=== PATIENT | male | born 1950 | race Caucasian/White ===

== ENCOUNTER → 2016-12-06 | Outpatient (CLI) | payer OTHER, MEDICARE ==
--- NOTE | 2016-12-06 13:36 | PE ---
EXAMINATION TYPE: PET CT fusion whole body DATE OF EXAM: 12/06/2016 COMPARISON: PET/CT May 24, 2016. CT chest March 17, 2016. HISTORY: Lung cancer progress study . Completed chemotherapy October 2016. Completed radiation treatmen t June 17, 2017. TECHNIQUE: Following the intravenous administration of 13.76 mCi of F-18 FDG, whole body images are performed from the skull base to the midthigh. Images are reviewed on the computer in the coronal, a xial, and sagittal planes. Reconstructed rotating images are created on independent workstation and reviewed on the computer. A localization and attenuation correction CT is performed in conjunction with the PET scan. SCAN: Subsequent Scan FINDINGS: SKULL BASE AND NECK: No suspicious new hypermetabolic uptake is seen in the neck. CHEST, MEDIASTINUM, AND HILAR REGION: There is now ill-defined consolidation with mild abnormal hyper metabolic uptake at area where there was prior hypermetabolic mass in the right upper lobe. Max SUV i s 3.3. No distinct visual mass suspicious hypermetabolic uptake remains present. No new areas of abnormal hypermetabolic uptake are seen. New small right pleural effusion is noted. ABDOMEN AND PELVIS: No suspicious hypermetabolic uptake is seen in the abdomen or pelvis. No adrenal masses are evident. OSSEOUS STRUCTURES: No suspicious hypermetabolic uptake is seen in osseous structures. Cystic change right inferior acetabulum is redemonstrated and stable without suspicious hypermetabolic uptake. Scle rosis and joint space loss distal right clavicle is redemonstrated. There is stable diffuse sclerosis left T6 posterior rib without abnormal hypermetabolic uptake, healed pathologic fracture is redemons trated. There is stable sclerotic focus posterior T5 vertebral just right of midline on axial image [address]: There is redemonstration of right internal jugular Mediport catheter, catheter is now more coiled in right internal jugular vein and terminates before brachiocephalic confluence. Small degree of bilateral gynecomastia is redemonstrated. There is persistent mild cardiomegaly with tiny pericardial effusion anteriorly and inferiorly felt s table. Cholecystectomy clips are again seen. There is stable 3 mm right mid kidney calcific focus possible n onobstructing calculus versus vascular calcification on axial image 165. Normal-appearing appendix is seen from cecum. Spleen size is stable. There are scattered pelvic phleboliths. There are scattered diverticula throughout the colon. There is mild calcified atherotic change of the abdominal aorta. There is multilevel facet arthropathy in the lower lumbar spine. There is multilevel spurring in the spine. There is redemonstration of hemangioma right T10 vertebra on axial image 134. IMPRESSION: Successful treatment response with now dense irregular consolidation at area of hypermeta bolic mass right upper lobe, no obvious residual mass or abnormal hypermetabolic uptake is present . Scattered sclerotic lesion suspected metastatic disease is stable without abnormal hypermetabolic upt adriel. No new masses or abnormal hypermetabolic uptake is present.
== END | disposition home or self-care (01) ==
LOC: RADPETMAIN 10:38
PROVIDERS: ATTEND Internal Medicine Hematology & Oncology
DX: R91.8 Other nonspecific abnormal finding of lung field (principal); C34.90 Malignant neoplasm of unspecified part of unspecified bronchus or lung
CPT/HCPCS: 78816; A9552

== ENCOUNTER 2016-12-17 15:40 | Inpatient (IN) | payer OTHER, MEDICARE ==
[2016-12-17] MEDS ORDERED: SODIUM CHLORIDE 0.9% 1,000 ML IV STA (16:01)
[2016-12-17] MEDS ORDERED: DILTIAZEM 5 MG/ML 5 ML VIAL IVP STA (16:02)
--- NOTE | 2016-12-17 16:06 | ED ---
General Adult HPI - General Chief complaint: Arrhythmia/Palpitations Stated complaint: Low BP Time Seen by Provider: 12/17/16 15:51 Source: patient, family, RN notes reviewed Mode of arrival: wheelchair Limitations: no limitations - History of Present Illness Initial comments: Patient is a pleasant 66-year-old male presenting to the emergency Department with not feeling well. Patient had chemotherapy last was 6 days ago for lung cancer. Patient just feels not well generally. Patient usually does feel this way following chemotherapy. Family took blood pressure today and found it to be in the 80s. They also found heart rate to be in the 150s. Patient denies any chest pain or palpitations. No dyspnea. No history of cardiac dysrhythmia previously. - Related Data Home Medications Medication Instructions Recorded Confirmed ALPRAZolam [Xanax] 0.5 mg PO TID 11/29/15 12/17/16 Dextroamphetamine/Amphetamine 20 mg PO QAM 11/29/15 12/17/16 [Adderall Xr] Finasteride [Proscar] 5 mg PO HS 11/29/15 12/17/16 Gabapentin 600 mg PO TID 11/29/15 12/17/16 Loratadine [Claritin] 10 mg PO HS 11/29/15 12/17/16 Pravastatin Sodium [Pravachol] 40 mg PO HS 11/29/15 12/17/16 Tamsulosin HCl [Flomax] 0.4 mg PO HS 11/29/15 12/17/16 clonazePAM [KlonoPIN] 1 mg PO HS 11/29/15 12/17/16 HYDROcodone/APAP 10-325MG [[place] 1 tab PO Q6H PRN 02/17/16 12/17/16 10-325] Calcium Carbonate [Calcium] 600 mg PO DAILY 12/17/16 12/17/16 Folic Acid 1 mg PO HS 12/17/16 12/17/16 Losartan [Cozaar] 50 mg PO DAILY 12/17/16 12/17/16 Polyethylene Glycol 3350 [Miralax] 17 gm PO DAILY PRN 12/17/16 12/17/16 Prochlorperazine [Compazine] 10 mg PO Q6H PRN 12/17/16 12/17/16 Simethicone [Gas-X] 125 mg PO TID PRN 12/17/16 12/17/16 Allergies Allergy/AdvReac Type Severity Reaction Status Date / Time telaprevir [From Incivek] Allergy Rash/Hives Verified 02/17/16 15:09 tetracycline Allergy Rash/Hives Verified 02/17/16 15:09 levofloxacin [From Levaquin] AdvReac Altered Verified 12/17/16 16:18 Mental Status Review of Systems ROS Statement: Those systems with pertinent positive or pertinent negative responses have been documented in the HPI. ROS Other: All systems not noted in ROS Statement are negative. Constitutional: Denies: fever Eyes: Denies: eye pain ENT: Denies: throat pain Respiratory: Denies: cough, dyspnea Cardiovascular: Denies: chest pain, palpitations Endocrine: Reports: fatigue Gastrointestinal: Denies: abdominal pain Genitourinary: Denies: dysuria Musculoskeletal: Denies: back pain Skin: Denies: rash Neurological: Denies: headache Past Medical History Past Medical History: Cancer, Hyperlipidemia, Osteoarthritis (OA), Pneumonia, Prostate Disorder, Sleep Apnea/CPAP/BIPAP Additional Past Medical History / Comment(s): rt lung mass,vertigo/RECENT SINUS INFECTION , hepatitis c-RECEIVED TX WITH INTERFERON,INCIVEK, sleep apnea USES A CPAP MACHINE, BPH, sciatica, SHINGLES >20 YEARS AGO,WEARS [place] HEARING AIDS, LOWER BRIDGE.steroid use w/in 3 mos History of Any Multi-Drug Resistant Organisms: None Reported Past Surgical History: Cholecystectomy, Orthopedic Surgery Additional Past Surgical History / Comment(s): sinus/SLEEP APNEA SX, RT KNEE ARTHROSCOPY AND MENISCAL TEAR REPAIR,LASIK EYE SX ,COLONOSCOPY, SKIN LESION REMOVED"PRECANCEROUS" Past Anesthesia/Blood Transfusion Reactions: Motion Sickness Past Psychological History: ADD/ADHD, Depression, PTSD Smoking Status: Former smoker Past Alcohol Use History: Rare Past Drug Use History: None Reported - Past Family History Father Family Medical History: Hyperlipidemia, Myocardial Infarction ([place]) Mother Additional Family Medical History / Comment(s): PT'S MOM FROM COMPLICATIONS FROM MS WHEN PT WAS 4 YEARS OLD. General Exam Limitations: no limitations General appearance: alert, in no apparent distress Head exam: Present: atraumatic Eye exam: Present: normal appearance, PERRL ENT exam: Present: normal oropharynx Neck exam: Present: normal inspection Respiratory exam: Present: normal lung sounds bilaterally Cardiovascular Exam: Present: tachycardia, irregular rhythm Expanded Peripheral pulses: 2+: Radial (R), Radial (L), Dorsalis Pedis (R), Dorsalis Pedis (L) GI/Abdominal exam: Present: soft. Absent: tenderness Extremities exam: Present: pedal edema (Trace bilateral). Absent: calf tenderness Neurological exam: Present: alert Psychiatric exam: Present: normal affect, normal mood Skin exam: Present: normal color Course Vital Signs 12/17/16 12/17/16 12/17/16 15:43 17:17 17:56 Temperature 96.9 F L Pulse Rate 159 H 117 H 116 H Respiratory 18 18 18 Rate Blood Pressure 93/55 93/52 97/64 O2 Sat by Pulse 96 96 Oximetry 12/17/16 12/17/16 18:26 18:56 Temperature Pulse Rate 99 110 H Respiratory 18 18 Rate Blood Pressure 104/67 104/74 O2 Sat by Pulse 99 96 Oximetry EKG Findings - EKG Comments: EKG Findings:: A flutter with 2-1 AV conduction, rate 161. QRS 82. QT 294. QTC 481. Normal axis. LVH. Nonspecific ST-T. Medical Decision Making - Medical Decision Making Patient reevaluated and resting comfortably in bed. Heart rate varies between 100-140. Patient and family updated on results and plan. Case was discussed in detail with Dr. Fong, who will admit for Dr. Argueta. - Lab Data Result diagrams: 12/17/16 16:30 12/17/16 16:30 Lab Results 12/17/16 12/17/16 12/17/16 Range/Units 16:30 16:30 16:30 WBC 4.4 (3.8-10.6) k/uL RBC 3.41 L (4.30-5.90) m/uL Hgb 11.5 L (13.0-17.5) gm/dL Hct 34.5 L (39.0-53.0) % MCV 101.1 H (80.0-100.0) fL MCH 33.7 (25.0-35.0) pg MCHC 33.3 (31.0-37.0) g/dL RDW 14.8 (11.5-15.5) % Plt Count 159 (150-450) k/uL Neutrophils % 70 % Lymphocytes % 24 % Monocytes % 2 % Eosinophils % 1 % Basophils % 1 % Neutrophils # 3.1 (1.3-7.7) k/uL Lymphocytes # 1.1 (1.0-4.8) k/uL Monocytes # 0.1 (0-1.0) k/uL Eosinophils # 0.1 (0-0.7) k/uL Basophils # 0.0 (0-0.2) k/uL Macrocytosis Slight PT (9.0-12.0) sec INR (<1.1) APTT (22.0-30.0) sec Sodium 136 L (137-145) mmol/L Potassium 3.8 (3.5-5.1) mmol/L Chloride 101 (98-107) mmol/L Carbon Dioxide 25 (22-30) mmol/L Anion Gap 10 mmol/L BUN 21 H (9-20) mg/dL Creatinine 1.30 H (0.66-1.25) mg/dL Est GFR (MDRD) Af Amer >60 (>60 ml/min/1.73 sqM) Est GFR (MDRD) Non-Af 55 (>60 ml/min/1.73 sqM) Glucose 125 H (74-99) mg/dL Calcium 9.2 (8.4-10.2) mg/dL Magnesium 1.8 (1.6-2.3) mg/dL Total Bilirubin 0.4 (0.2-1.3) mg/dL AST 34 (17-59) U/L ALT 45 (21-72) U/L Alkaline Phosphatase 57 (38-126) U/L Total Creatine Kinase 115 (55-170) U/L CK-MB (CK-2) 0.9 (0.0-2.4) ng/mL CK-MB (CK-2) Rel Index 0.8 Troponin I 0.033 (0.000-0.034) ng/mL Total Protein 5.9 L (6.3-8.2) g/dL Albumin 3.4 L (3.5-5.0) g/dL TSH 2.370 (0.465-4.680) mIU/L Free T4 0.94 (0.78-2.19) ng/dL Free T3 pg/mL 3.4 (2.8-5.3) pg/ml 12/17/16 Range/Units 16:30 WBC (3.8-10.6) k/uL RBC (4.30-5.90) m/uL Hgb (13.0-17.5) gm/dL Hct (39.0-53.0) % MCV (80.0-100.0) fL MCH (25.0-35.0) pg MCHC (31.0-37.0) g/dL RDW (11.5-15.5) % Plt Count (150-450) k/uL Neutrophils % % Lymphocytes % % Monocytes % % Eosinophils % % Basophils % % Neutrophils # (1.3-7.7) k/uL Lymphocytes # (1.0-4.8) k/uL Monocytes # (0-1.0) k/uL Eosinophils # (0-0.7) k/uL Basophils # (0-0.2) k/uL Macrocytosis PT 10.1 (9.0-12.0) sec INR 1.0 (<1.1) APTT 27.6 (22.0-30.0) sec Sodium (137-145) mmol/L Potassium (3.5-5.1) mmol/L Chloride (98-107) mmol/L Carbon Dioxide (22-30) mmol/L Anion Gap mmol/L BUN (9-20) mg/dL Creatinine (0.66-1.25) mg/dL Est GFR (MDRD) Af Amer (>60 ml/min/1.73 sqM) Est GFR (MDRD) Non-Af (>60 ml/min/1.73 sqM) Glucose (74-99) mg/dL Calcium (8.4-10.2) mg/dL Magnesium (1.6-2.3) mg/dL Total Bilirubin (0.2-1.3) mg/dL AST (17-59) U/L ALT (21-72) U/L Alkaline Phosphatase (38-126) U/L Total Creatine Kinase (55-170) U/L CK-MB (CK-2) (0.0-2.4) ng/mL CK-MB (CK-2) Rel Index Troponin I (0.000-0.034) ng/mL Total Protein (6.3-8.2) g/dL Albumin (3.5-5.0) g/dL TSH (0.465-4.680) mIU/L Free T4 (0.78-2.19) ng/dL Free T3 pg/mL (2.8-5.3) pg/ml - Radiology Data Radiology results: image reviewed (Chest x-ray shows right upper lobe consolidation and atelectasis suggesting progression. No infiltrate mild left lateral lung base.) Critical Care Time Critical Care Time: Yes Total Critical Care Time: 32 Disposition Clinical Impression: Atrial fibrillation with RVR Disposition: ADMITTED IP TO THIS HOSP Referrals: Viviana Argueta DO [Primary Care Provider] - 1-2 days Decision Time: 19:10
[2016-12-17] MEDS: DILTIAZEM 125 MG in SODIUM CHLORIDE 0.9% 100 ML IV ONE (16:25)
[2016-12-17 16:49] LABS: Basophils % (A) 1 %; CH 33.7; CHCM 33.4; Eosinophils # (A) 0.1 k/uL (0-0.7); Eosinophils % (A) 1 %; HCT 34.5 % (39.0-53.0); HDW 2.62; HGB 11.5 gm/dL (13.0-17.5); Luc # (Auto) 0.12; Luc % (Auto) 3; Lymphocytes # (A) 1.1 k/uL (1.0-4.8); Lymphocytes % (A) 24 %; MCH 33.7 pg (25.0-35.0); MCHC 33.3 g/dL (31.0-37.0); MCV 101.1 fL (80.0-100.0); Macrocytosis Slight; Monocytes # (A) 0.1 k/uL (0-1.0); Monocytes % (A) 2 %; Neutrophils # (A) 3.1 k/uL (1.3-7.7); Neutrophils % (A) 70 %; RBC 3.41 m/uL (4.30-5.90); RDW 14.8 % (11.5-15.5); WBC 4.4 k/uL (3.8-10.6); WBC (Perox) 4.48
--- NOTE | 2016-12-17 16:54 | XR ---
EXAMINATION TYPE: XR chest 1V portable DATE OF EXAM: 12/17/2016 COMPARISON: 02/17/2016 HISTORY: Tachycardia TECHNIQUE: Single frontal view of the chest is obtained. FINDINGS: There is a poor inspiration with some patchy infiltrate at the lateral left lung base. The re is no heart failure. There is right central venous catheter with tip in the superior vena cava. Th ere is increased right paratracheal density consistent with right upper lobe consolidation. Trachea i s deviated slightly to the right side. Heart size is normal. There are chest leads. IMPRESSION: There is some right upper lobe consolidation and atelectasis that suggests progression o f tumor in the right upper lobe compared to old exam. There is new mild infiltrate at the lateral lef t lung base compared to old exam.
[2016-12-17 17:01] LABS: Partial Thromboplastin Time 27.6 sec (22.0-30.0); Prothrombin Time 10.1 sec (9.0-12.0)
[2016-12-17 17:08] LABS: ALT 45 U/L (21-72); AST 34 U/L (17-59); Alkaline Phosphatase 57 U/L (38-126); Anion Gap 10 mmol/L; Blood Urea Nitrogen 21 mg/dL (9-20); Calcium 9.2 mg/dL (8.4-10.2); Carbon Dioxide 25 mmol/L (22-30); Chloride 101 mmol/L (98-107); Glucose 125 mg/dL (74-99); Magnesium 1.8 mg/dL (1.6-2.3); Non-African American GFR(MDRD) 55 (>60 ml/min/1.73 sqM); Potassium 3.8 mmol/L (3.5-5.1); Sodium 136 mmol/L (137-145); Total Bilirubin 0.4 mg/dL (0.2-1.3); Total Protein 5.9 g/dL (6.3-8.2)
[2016-12-17 17:28] LABS: Creatine Kinase MB 0.9 ng/mL (0.0-2.4); Troponin I 0.033 ng/mL (0.000-0.034)
[2016-12-17] MEDS ORDERED: ASPIRIN 81 MG CHEW PO STA (19:10)
[2016-12-17] MEDS ORDERED: NITROGLYCERIN SL TABS 0.4 MG TAB SUBLINGUAL PRN (19:10)
[2016-12-17] MEDS ORDERED: HEPARIN SODIUM,PORCINE 5,000 UNIT/ML 1 ML VIAL IV ONE (19:10)
[2016-12-17] MEDS: HEPARIN SODIUM,PORCINE/D5W PMX 25,000 UNIT in DEXTROSE/WATER 1 500ML.BAG IV SCH (19:32)
[2016-12-17] MEDS ORDERED: HYDROcodone/APAP 10-325MG 1 EACH TAB PO ONE (20:03)
[2016-12-17] MEDS ORDERED: HYDROcodone/APAP 10-325MG 1 EACH TAB PO PRN (21:04)
[2016-12-17 21:18] VITALS: BMI 29.3
[2016-12-17] MEDS ORDERED: clonazePAM 1 MG TAB PO STA (22:24)
[2016-12-17] MEDS ORDERED: FINASTERIDE 5 MG TAB PO ONE (22:25)
[2016-12-17] MEDS ORDERED: LORATADINE 10 MG TAB PO STA (22:26)
[2016-12-17] MEDS ORDERED: TAMSULOSIN 0.4 MG CAP.ER.24H PO STA (22:27)
[2016-12-17] MEDS: GABAPENTIN 300 MG CAP PO SCH (22:28)
[2016-12-17] MEDS: ALPRAZolam 0.5 MG TAB PO SCH (22:28)
[2016-12-17 23:12] LABS: Creatine Kinase MB 0.8 ng/mL (0.0-2.4)
[2016-12-17 23:22] LABS: Troponin I 0.035 ng/mL (0.000-0.034)
[2016-12-17] MEDS: SIMETHICONE 80 MG CHEWABLE PO PRN (23:24)
[2016-12-17] MEDS: PROCHLORPERAZINE 10 MG TAB PO PRN (23:24)
[2016-12-18] MEDS ORDERED: POLYETHYLENE GLYCOL 3350 17 GM POWD.PACK PO PRN (00:55)
[2016-12-18] MEDS ORDERED: TEMAZEPAM 15 MG CAP PO PRN (00:56)
[2016-12-18] MEDS: HEPARIN SODIUM,PORCINE 5,000 UNIT/ML 1 ML VIAL IV PRN ×2 (01:50→09:37)
[2016-12-18 06:24] LABS: Mean Platelet Volume 7.7
[2016-12-18 06:28] LABS: Creatine Kinase MB 0.6 ng/mL (0.0-2.4); Troponin I 0.018 ng/mL (0.000-0.034)
[2016-12-18 06:37] LABS: Cholesterol 132 mg/dL (<200); HDL Cholesterol 43 mg/dL (40-60); Triglycerides 69 mg/dL (<150)
[2016-12-18] MEDS ORDERED: POTASSIUM CHLORIDE ER 20 MEQ TAB.ER PO STA (08:20)
--- NOTE | 2016-12-18 08:20 | P.CRDCN ---
History of Present Illness Consult date: 12/18/16 Requesting physician: Tera Fong Consult reason: atrial flutter Chief complaint: Light headedness History of present illness: This is a pleasant 66-year-old gentleman with history of hypertension , diagnosis of lung cancer approximately one year ago for which she receives chemotherapy, hyperlipidemia, prior history of smoking, who states that he's been feeling generally well. Yesterday, patient states he went out on his boat fishing with his grandson, became extremely lightheaded. He states that he tried to have something to eat which usually calms the lightheadedness, however he persisted to be quite lightheaded and had some mild associated nausea. He came in off the boat, states that his daughter checked his heart rate which was noted to be in the 150-160 range and the patient came to the emergency room for further evaluation. Presentation here patient was found to be in atrial flutter with a heart rate of 160, blood pressure 93/50, 96% on room air. Chest x-ray revealed right upper lobe consolidation and atelectasis suggesting progression of the tumor in the right upper lobe compared with prior exam. There may be in new mild infiltrate in the lateral left lung base compared to prior. Hemoglobin 11.5, WBC 4.4, platelet count 124 potassium 3.8, BUN 21, creatinine 1.3. A mesial level I.8. Troponin 0.033, 0.035, 0.018. TSH 2.3, free T4 0.9. At the time of my examination this morning patient is currently on IV heparin and IV Cardizem. Continues to be in atrial flutter with a heart rate in the 90s, with activity heart rate goes up into the 07/19/1929 range. Past Medical History Past Medical History: Cancer, Hyperlipidemia, Osteoarthritis (OA), Pneumonia, Prostate Disorder, Sleep Apnea/CPAP/BIPAP Additional Past Medical History / Comment(s): rt lung mass,vertigo/RECENT SINUS INFECTION , hepatitis c-RECEIVED TX WITH INTERFERON,INCIVEK, sleep apnea USES A CPAP MACHINE, BPH, sciatica, SHINGLES >20 YEARS AGO,WEARS [place] HEARING AIDS, LOWER BRIDGE.steroid use w/in 3 mos, chemo History of Any Multi-Drug Resistant Organisms: None Reported Past Surgical History: Cholecystectomy, Orthopedic Surgery Additional Past Surgical History / Comment(s): sinus/SLEEP APNEA SX, RT KNEE ARTHROSCOPY AND MENISCAL TEAR REPAIR,LASIK EYE SX ,COLONOSCOPY, SKIN LESION REMOVED"PRECANCEROUS" Past Anesthesia/Blood Transfusion Reactions: No Reported Reaction, Motion Sickness Past Psychological History: ADD/ADHD, Depression, PTSD Additional Psychological History / Comment(s): PT LIVES AT HOME WITH HIS SARA, IS INDEPENDANT. Smoking Status: Former smoker - Past Family History Father Family Medical History: Hyperlipidemia, Myocardial Infarction ([place]) Mother Additional Family Medical History / Comment(s): PT'S MOM FROM COMPLICATIONS FROM MS WHEN PT WAS 4 YEARS OLD. Medications and Allergies Home Medications Medication Instructions Recorded Confirmed Type ALPRAZolam [Xanax] 0.5 mg PO TID 11/29/15 12/17/16 History Dextroamphetamine/Amphetamine 20 mg PO QAM 11/29/15 12/17/16 History [Adderall Xr] Finasteride [Proscar] 5 mg PO HS 11/29/15 12/17/16 History Gabapentin 600 mg PO TID 11/29/15 12/17/16 History Loratadine [Claritin] 10 mg PO HS 11/29/15 12/17/16 History Pravastatin Sodium [Pravachol] 40 mg PO HS 11/29/15 12/17/16 History Tamsulosin HCl [Flomax] 0.4 mg PO HS 11/29/15 12/17/16 History clonazePAM [KlonoPIN] 1 mg PO HS 11/29/15 12/17/16 History HYDROcodone/APAP 10-325MG [[place] 1 tab PO Q6H PRN 02/17/16 12/17/16 History 10-325] Calcium Carbonate [Calcium] 600 mg PO DAILY 12/17/16 12/17/16 History Folic Acid 1 mg PO HS 12/17/16 12/17/16 History Losartan [Cozaar] 50 mg PO DAILY 12/17/16 12/17/16 History Polyethylene Glycol 3350 [Miralax] 17 gm PO DAILY PRN 12/17/16 12/17/16 History Prochlorperazine [Compazine] 10 mg PO Q6H PRN 12/17/16 12/17/16 History Simethicone [Gas-X] 125 mg PO TID PRN 12/17/16 12/17/16 History Allergies Allergy/AdvReac Type Severity Reaction Status Date / Time telaprevir [From Incivek] Allergy Rash/Hives Verified 02/17/16 15:09 tetracycline Allergy Rash/Hives Verified 02/17/16 15:09 levofloxacin [From Levaquin] AdvReac Altered Verified 12/17/16 16:18 Mental Status Physical Exam Vitals: Vital Signs Temp Pulse Pulse Resp BP BP Pulse Ox 12/18/16 04:00 97.1 F L 77 16 122/69 95 12/17/16 23:44 115 H 12/17/16 23:20 115 H 16 111/56 96 12/17/16 22:45 164 H 16 12/17/16 20:26 98.5 F 100 18 119/78 97 12/17/16 20:13 97.5 F L 164 H 16 109/70 97 12/17/16 19:56 104 H 18 107/73 98 12/17/16 18:56 110 H 18 104/74 96 12/17/16 18:26 99 18 104/67 99 12/17/16 17:56 116 H 18 97/64 96 12/17/16 17:17 117 H 18 93/52 12/17/16 15:43 96.9 F L 159 H 18 93/55 96 Intake and Output 12/17/16 12/18/16 12/18/16 22:59 06:59 14:59 Intake Total 1226 Output Total 450 Balance 1226 -450 Intake: IV 1100 Sodium Chloride 0.9% 1, 1100 000 ml @ 100 mls/hr IV . Q10H [facility] Rx#:[id number] Intake, IV Titration 126 Amount Heparin Sodium,Porcine/ 126 D5w Pmx 25,000 unit In Dextrose/Water 1 500ml. bag @ 9.586 UNITS/KG/HR 20 mls/hr IV .Q24H [facility] Rx #:[id number] Output: Urine 450 Other: # Voids 1 1 Weight 103.6 kg 103.6 kg PHYSICAL EXAMINATION: HEENT: Head is atraumatic, normocephalic. Pupils equal, round. Neck is supple. There is no elevated jugular venous pressure. HEART EXAMINATION: Heart S1, S2 irregularly irregular . No murmur or gallop heard. CHEST EXAMINATION: Lungs are clear to auscultation and precussion. No chest wall tenderness is noted on palpation or with deep breathing. ABDOMEN: Soft, nontender. Bowel sounds are heard. No organomegaly noted. EXTREMITIES: 2+ peripheral pulses with no evidence of peripheral edema and no calf tenderness noted. NEUROLOGIC patient is awake, alert and oriented -3. . Results 12/18/16 05:33 12/17/16 16:30 Cardiac Enzymes 12/17/16 12/17/16 12/17/16 Range/Units 16:30 16:30 22:33 AST 34 (17-59) U/L CK-MB (CK-2) 0.9 0.8 (0.0-2.4) ng/mL Troponin I 0.033 0.035 H* (0.000-0.034) ng/mL 12/18/16 Range/Units 05:33 AST (17-59) U/L CK-MB (CK-2) 0.6 (0.0-2.4) ng/mL Troponin I 0.018 (0.000-0.034) ng/mL Coagulation 12/17/16 12/18/16 Range/Units 16:30 01:20 PT 10.1 (9.0-12.0) sec APTT 27.6 31.1 H (22.0-30.0) sec Lipids 12/18/16 Range/Units 05:33 Triglycerides 69 (<150) mg/dL Cholesterol 132 (<200) mg/dL HDL Cholesterol 43 (40-60) mg/dL CBC 12/17/16 12/18/16 Range/Units 16:30 05:33 WBC 4.4 (3.8-10.6) k/uL RBC 3.41 L (4.30-5.90) m/uL Hgb 11.5 L (13.0-17.5) gm/dL Hct 34.5 L (39.0-53.0) % Plt Count 159 124 L (150-450) k/uL Comprehensive Metabolic Panel 12/17/16 Range/Units 16:30 Sodium 136 L (137-145) mmol/L Potassium 3.8 (3.5-5.1) mmol/L Chloride 101 (98-107) mmol/L Carbon Dioxide 25 (22-30) mmol/L BUN 21 H (9-20) mg/dL Creatinine 1.30 H (0.66-1.25) mg/dL Glucose 125 H (74-99) mg/dL Calcium 9.2 (8.4-10.2) mg/dL AST 34 (17-59) U/L ALT 45 (21-72) U/L Alkaline Phosphatase 57 (38-126) U/L Total Protein 5.9 L (6.3-8.2) g/dL Albumin 3.4 L (3.5-5.0) g/dL Current Medications Generic Name Dose Route Start Last Admin Trade Name Freq PRN Reason Stop Dose Admin Hydrocodone Bitart/Acetaminophen 1 each 12/17/16 21:04 [place] 10 PO Q6H PRN Pain Alprazolam 0.5 mg 12/17/16 22:00 12/17/16 22:28 Xanax PO 0.5 mg TID [facility] Administration Aspirin 325 mg 12/18/16 09:00 Aspirin PO DAILY [facility] Calcium Carbonate/Glycine 500 mg 12/18/16 09:00 Tums PO DAILY [facility] Clonazepam 1 mg 12/18/16 21:00 Klonopin PO HS [facility] Finasteride 5 mg 12/18/16 21:00 Proscar PO HS [facility] Folic Acid 1 mg 12/18/16 21:00 Folic Acid PO HS [facility] Gabapentin 600 mg 12/17/16 22:00 12/17/16 22:28 Neurontin PO 600 mg TID [facility] Administration Heparin Sodium (Porcine) 0 unit 12/17/16 19:10 12/18/16 01:50 Heparin IV 4,000 unit Q6HR PRN Administration Low PTT Protocol Diltiazem HCl 125 mg/ Sodium 125 mls @ 5 mls/hr 12/17/16 16:02 12/17/16 16:25 Chloride IV 12/18/16 16:01 5 mg/hr .Q24H ONE 5 mls/hr 5 MG/HR Administration Heparin Sodium/Dextrose 25,000 500 mls @ 20 mls/hr 12/17/16 19:15 12/18/16 01 :50 unit/ IV Solution IV 12.5 units/kg/hr .Q24H [facility] 26.08 mls/hr Protocol Titration 9.586 UNITS/KG/HR Loratadine 10 mg 12/18/16 21:00 Claritin PO HS [facility] Losartan Potassium 50 mg 12/18/16 09:00 Cozaar PO DAILY [facility] Nitroglycerin 0.4 mg 12/17/16 19:10 Nitrostat SUBLINGUAL Q5M PRN Chest Pain Polyethylene Glycol 17 gm 12/18/16 00:55 Miralax PO DAILY PRN Constipation Pravastatin Sodium 40 mg 12/18/16 21:00 Pravachol PO HS [facility] Prochlorperazine Maleate 10 mg 12/17/16 21:04 12/17/16 23:24 Compazine PO 10 mg Q6H PRN Administration Nausea Simethicone 120 mg 12/17/16 21:36 12/17/16 23:24 Mylicon Chew PO 120 mg TID PRN Administration Bloating/Gas Tamsulosin HCl 0.4 mg 12/18/16 21:00 Flomax PO HS [facility] Temazepam 15 mg 12/18/16 00:56 Restoril PO HS PRN Insomnia Intake and Output 12/17/16 12/18/16 12/18/16 22:59 06:59 14:59 Intake Total 1226 Output Total 450 Balance 1226 -450 Intake: IV 1100 Sodium Chloride 0.9% 1, 1100 000 ml @ 100 mls/hr IV . Q10H [facility] Rx#:[id number] Intake, IV Titration 126 Amount Heparin Sodium,Porcine/ 126 D5w Pmx 25,000 unit In Dextrose/Water 1 500ml. bag @ 9.586 UNITS/KG/HR 20 mls/hr IV .Q24H [facility] Rx #:[id number] Output: Urine 450 Other: # Voids 1 1 Weight 103.6 kg 103.6 kg 12/18/16 05:33 12/17/16 16:30 EKG Interpretations (text) EKG shows atrial flutter with a rapid ventricular response Assessment and Plan Plan: Assessment and plan #1 atrial flutter with rapid ventricular response, appears to be of new onset. #2 hypertension #3 hyperlipidemia #4 history of hepatitis C with interferon therapy # 5 sleep apnea #6 lung CA, status post chemotherapy #7 mildly renal insufficiency, creatinine 1.3 #8 hypokalemia #9 abnormal troponins, likely secondary to oxygen supply and demand mismatch, patient did have a Lexiscan stress test performed one year ago which was negative for any reversible ischemia. Plan Echocardiogram with Doppler study has been performed, we will review. T4 and TSH are normal. Patient has been educated regarding the importance of anticoagulation for stroke prevention. We will check to see if the patient has coverage for one of the newer agents. We will replace the patient's potassium. Further recommendations will be based on these findings and the patient's clinical course. DNP note has been reviewed, I agree with a documented findings and plan of care. Patient was seen and examined.
[2016-12-18] MEDS ORDERED: LOSARTAN 50 MG TAB PO SCH (09:00)
[2016-12-18] MEDS ORDERED: ASPIRIN 325 MG TAB PO SCH (09:00)
[2016-12-18] MEDS ORDERED: NON-FORMULARY DRUG (Dextroamphetamine/Amphetamine [Adderall Xr] 20 MG) PO SCH (09:00)
[2016-12-18] MEDS: DILTIAZEM 125 MG in SODIUM CHLORIDE 0.9% 100 ML IV ONE (09:20)
[2016-12-18] MEDS: GABAPENTIN 300 MG CAP PO SCH ×3 (09:27→21:22)
[2016-12-18] MEDS: ALPRAZolam 0.5 MG TAB PO SCH ×3 (09:34→21:22)
--- NOTE | 2016-12-18 09:56 | HP ---
DATE OF ADMISSION: DATE OF SERVICE: 12/17/2016 CHIEF COMPLAINT: Atrial fibrillation and high heart rate. HISTORY OF PRESENT ILLNESS: This 66-year-old gentleman with a past medical history of lung cancer right upper lobe on chemotherapy being followed by Dr. Argueta in the outpatient setting, not feeling well. Today, the patient was taking his blood pressure and the heart rate was found to be 150s. The patient came to [facility] and atrial fibrillation with rapid ventricular rate was noted. The patient was started on IV heparin and is admitted for further evaluation and treatment. The patient also has past history of hyperlipidemia, DJD, history of pneumonia, history of sleep apnea, cholecystectomy, ADD/ADHD, depression, PTSD also. There is no history of fevers, rigors. No history of headache, loss of consciousness or seizures. PAST MEDICAL HISTORY: History of hyperlipidemia, DJD, history of pneumonia, history of prostate disorder, sleep apnea, right lung mass, ADD, ADHD, history of depression, PTSD. Medications prior to admission include home medications are: 1. Compazine 10 mg q.6 p.r.n. 2. Klonopin 1 mg p.o. q.h.s. 3. Flomax 0.4 q.h.s. 4. Gas-X 125 mg p.o. t.i.d. p.r.n. 5. Pravachol 40 mg q.h.s. 6. MiraLAX 17 grams daily p.r.n. 7. Cozaar 50 mg p.o. daily. 8. Claritin 10 mg q.h.s. 9. Republic 10 mg q.6 p.r.n. 10. Gabapentin 600 mg p.o. t.i.d. 11. Folic acid 1 mg p.o. q.h.s. 12. Proscar 5 mg p.o. q.h.s. 13. Adderall XR 20 mg p.o. q.a.m. 14. Calcium 600 mg p.o. daily. 15. Xanax 0.5 mg p.o. t.i.d. ALLERGIES: TELAPREVIR, TETRACYCLINE, LEVAQUIN. FAMILY HISTORY: History of hyperlipidemia, history of myocardial infarction, history of multiple sclerosis. SOCIAL HISTORY: History of THC, previous history of smoking. REVIEW OF SYSTEMS: ENT: No diminishing hearing or diminished vision. CARDIOVASCULAR SYSTEM: No angina. RESPIRATORY SYSTEM: As mentioned earlier. GI: As mentioned earlier. : No dysuria. NERVOUS SYSTEM: As mentioned earlier. ALLERGY/IMMUNOLOGY: No history of asthma. MUSCULOSKELETAL: As mentioned earlier. HEMATOLOGY/ONCOLOGY: No history of anemia. ENDOCRINE: No history of diabetes mellitus or hypothyroidism. CONSTITUTIONAL: As mentioned earlier. DERMATOLOGY: Negative. RHEUMATOLOGY: Negative. PSYCHIATRY: As mentioned earlier. PHYSICAL EXAMINATION: The patient is alert and oriented x3. Pulse is 115 irregular. Blood pressure 111/56, respirations 16, temperature 98.4, pulse ox 96% on 2 L. HEENT: Conjunctivae normal. Oral mucosa moist. NECK: No jugular venous distention. No carotid bruit. No lymph node enlargement. CARDIOVASCULAR: S1 and S2, tachycardiac, irregular. RESPIRATORY: Breath sounds diminished at the bases. Bilateral scattered rhonchi and crackles. ABDOMEN: Soft, nontender. No mass palpable. LEGS: No edema, no swelling. NERVOUS SYSTEM: Higher function as mentioned earlier. Moves all 4 limbs. No focal motor or sensory deficit. LYMPHATICS: No lymphadenopathy of neck, axillae or groin. SKIN; No ulcers, rashes or bleeding. Labs are at this time shows WBC 4.4, hemoglobin 11.5. Sodium 136. Creatinine is 1.30. The recent PET scan reviewed. Troponin 0.035. ASSESSMENT: 1. Atrial fibrillation with fast ventricular rate. 2. Troponin 0.035 indeterminate. 3. Increased creatinine with possible mild acute renal failure, possibly prerenal, acute tubular necrosis. 4. Hyponatremia. 5. Anemia, macrocytic. 6. History of right lung cancer, status post chemotherapy. 7. History of hyperlipidemia. 8. History of degenerative joint disease. 9. History of pneumonia. 10. History of prostate disorder. 11. History of sleep apnea. 12. History of hepatitis, treated with interferon. 13. History of sleep apnea on CPAP. 14. History of shingles. 15. Hard of hearing. 16. History of attention deficit disorder, attention deficit hyperactivity disorder. 17. History of depression, posttraumatic stress disorder. 18. Remote history of nicotine dependence. 19. History of medical marijuana. 20. FULL CODE. RECOMMENDATIONS AND DISCUSSION: This 66-year-old gentleman who presented with multiple complex medical problems. Will monitor the patient closely. Continue the current medications. Continue the Cardizem drip. Follow closely with Cardiology, otherwise, 2-D echo will be ordered. The patient is also started on IV heparin as well. Continue to monitor. Prognosis guarded. Further recommendations to follow. Hematology/Oncology also will be consulted. Home medications will be continued. Discussed with the patient, understands and agrees.
--- NOTE | 2016-12-18 10:01 | ECHOF ---
Referral Reason:afib MEASUREMENTS -------- HEIGHT: 188.0 cm WEIGHT: 103.4 kg BP: 122/69 RVIDd: 3.2 cm (< 3.3) IVSd: 1.2 cm (0.6 - 1.1) LVIDd: 5.2 cm (3.9 - 5.3) LVPWd: 1.2 cm (0.6 - 1.1) IVSs: 1.8 cm LVIDs: 3.2 cm LVPWs: 1.7 cm LA Diam: 4.0 cm (2.7 - 3.8) LAESV Index (A-L): 30.17 ml/m Ao Diam: 3.9 cm (2.0 - 3.7) AV Cusp: 1.8 cm (1.5 - 2.6) MV EXCURSION: 16.312 mm (> 18.000) MV EF SLOPE: 101 mm/s (70 - 150) EPSS: 1.0 cm RAP: 5.00 mmHg RVSP: 22.41 mmHg FINDINGS -------- The rhythm appears to be atrial flutter. This was a technically good study. The left ventricular size is normal. There is borderline concentric left ventricular hypertrophy. Overall left ventricular systolic function is mildly impaired with, an EF between 45 - 50 %. The right ventricle is normal in size and function. LA is midly dilated 29-33ml/m2. The right atrium is normal in size. The aortic valve is trileaflet and appears structurally normal. There is trace to mild mitral regurgitation. Trace tricuspid regurgitation present. Right ventricular systolic pressure is normal at < 35 mmHg. Trace/mild (physiologic) pulmonic regurgitation. The aortic root is dilated measuring 3.9cm. Normal inferior vena cava with normal inspiratory collapse consistent with estimated right atrial pressure of 5 mmHg. The pericardium is normal. CONCLUSIONS -------- 1. The rhythm appears to be atrial flutter. 2. Trace tricuspid regurgitation present. 3. Right ventricular systolic pressure is normal at < 35 mmHg. 4. Trace/mild (physiologic) pulmonic regurgitation. 5. The aortic root is dilated measuring 3.9cm. 6. Normal inferior vena cava with normal inspiratory collapse consistent with estimated right atrial pressure of 5 mmHg. 7. The pericardium is normal. 8. This was a technically good study. 9. The left ventricular size is normal. 10. There is borderline concentric left ventricular hypertrophy. 11. The right ventricle is normal in size and function. 12. LA is midly dilated 29-33ml/m2. 13. The right atrium is normal in size. 14. The aortic valve is trileaflet and appears structurally normal. 15. There is trace to mild mitral regurgitation. [employer] SUPERVISOR: Manasa Carter RDCS
--- NOTE | 2016-12-18 10:42 | P.PN ---
Progress Note - Text This is an addendum to the dictated cardiology consultation. 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 He felt dizzy but was not aware of any palpitations. He has no prior cardiac history and has underwent a stress test about a year ago that showed no evidence of inducible ischemia and his systolic function at that time was normal. On presentation he was noted to be in atrial flutter with 2 to one conduction. Patient denies any chest pain, change in his breathing, PND or orthopnea. He has occasional peripheral edema. He was told that his recent PET scan was stable. He has a history of hypertension and hyperlipidemia, he stopped smoking many years ago and he is non-diabetic. The patient was started on IV Cardizem and IV heparin to control his heart rate and anticoagulate him. His echocardiogram showed a mildly impaired systolic function. I would add to his regimen a beta junior and initiate oral anticoagulation. We will await the oncology service input regarding his malignancy status to make further recommendations in regard to attempting to restore sinus mechanism. Thank you for this consult we will follow.
[2016-12-18] MEDS: METOPROLOL TARTRATE 25 MG TAB PO SCH ×2 (11:36→21:22)
[2016-12-18] MEDS: LOSARTAN 25 MG TAB PO SCH (11:36)
[2016-12-18] MEDS: CALCIUM CARBONATE 500 MG CHEWABLE PO SCH (11:36)
[2016-12-18] MEDS: DILTIAZEM 125 MG in SODIUM CHLORIDE 0.9% 100 ML IV SCH ×2 (17:32→22:56)
[2016-12-18] MEDS: HEPARIN SODIUM,PORCINE/D5W PMX 25,000 UNIT in DEXTROSE/WATER 1 500ML.BAG IV SCH (17:33)
[2016-12-18] MEDS ORDERED: RX INFO: IV CONTRAST WAS GIVEN 1 EACH MISC MISCELLANE PRN (19:51)
--- NOTE | 2016-12-18 19:59 | P.CONS ---
History of Present Illness - Reason for Consult Consult date: 12/18/16 New onset atrial fibrillation. Lung cancer on chemo - History of Present Illness The patient is a 66-year-old gentleman, well-known to our service. He was diagnosed with a right-sided adenocarcinoma of the lung about a year ago. Unfortunately the patient had metastatic disease at diagnosis with bone involvement. He was treated with carboplatin and Alimta, for 6 cycles and then received palliative radiation. He has since been on maintenance Alimta, with good tolerance. Last chemotherapy was about 6-7 days ago. The patient did call the office, as he was feeling quite weak and dizzy. He reported that his blood pressure had dropped into the 80s and his heart rate appear to be quite high. He was asked by the office to go to the emergency room , where he was found to be in atrial fibrillation with high ventricular rate, up into the 160-170 range. He was admitted for further management. The patient has been seen by cardiology, and his rate is currently controlled with medication. Blood pressure has stabilized and he feels much better. He has been started on IV heparin. Consult was placed further evaluation and recommendations. He denies any prior history of cardiac arrhythmia or other cardiac abnormality Review of Systems Constitutional: Reports weakness Eyes: denies blurred vision, denies pain Ears: deny: decreased hearing, ear discharge, earache, tinnitus Ears, nose, mouth and throat: Denies headache, Denies sore throat Cardiovascular: Reports dyspnea on exertion, Reports irregular heart beat, Reports lightheadedness, Reports palpitations, Reports rapid heart beat Respiratory: Reports as per HPI, Reports dyspnea Gastrointestinal: Denies abdominal pain, Denies diarrhea, Denies nausea, Denies vomiting Genitourinary: Reports as per HPI Musculoskeletal: Reports as per HPI (Bilateral lower extremity edema, right greater than left) Integumentary: Denies pruritus, Denies rash Neurological: Reports as per HPI, Reports weakness Psychiatric: Denies anxiety, Denies depression Endocrine: Denies fatigue, Denies weight change Hematologic/Lymphatic: Reports as per HPI Past Medical History Past Medical History: Cancer, Hyperlipidemia, Osteoarthritis (OA), Pneumonia, Prostate Disorder, Sleep Apnea/CPAP/BIPAP Additional Past Medical History / Comment(s): rt lung mass,vertigo/RECENT SINUS INFECTION , hepatitis c-RECEIVED TX WITH INTERFERON,INCIVEK, sleep apnea USES A CPAP MACHINE, BPH, sciatica, SHINGLES >20 YEARS AGO,WEARS [place] HEARING AIDS, L[place].steroid use w/in 3 mos, chemo History of Any Multi-Drug Resistant Organisms: None Reported Past Surgical History: Cholecystectomy, Orthopedic Surgery Additional Past Surgical History / Comment(s): sinus/SLEEP APNEA SX, RT KNEE ARTHROSCOPY AND MENISCAL TEAR REPAIR,LASIK EYE SX ,COLONOSCOPY, SKIN LESION REMOVED"PRECANCEROUS" Past Anesthesia/Blood Transfusion Reactions: No Reported Reaction, Motion Sickness Past Psychological History: ADD/ADHD, Depression, PTSD Additional Psychological History / Comment(s): PT LIVES AT HOME WITH HIS SARA, IS INDEPENDANT. Smoking Status: Former smoker - Past Family History Father Family Medical History: Hyperlipidemia, Myocardial Infarction ([place]) Mother Additional Family Medical History / Comment(s): PT'S MOM FROM COMPLICATIONS FROM MS WHEN PT WAS 4 YEARS OLD. Medications and Allergies Home Medications Medication Instructions Recorded Confirmed Type ALPRAZolam [Xanax] 0.5 mg PO TID 11/29/15 12/17/16 History Dextroamphetamine/Amphetamine 20 mg PO QAM 11/29/15 12/17/16 History [Adderall Xr] Finasteride [Proscar] 5 mg PO HS 11/29/15 12/17/16 History Gabapentin 600 mg PO TID 11/29/15 12/17/16 History Loratadine [Claritin] 10 mg PO HS 11/29/15 12/17/16 History Pravastatin Sodium [Pravachol] 40 mg PO HS 11/29/15 12/17/16 History Tamsulosin HCl [Flomax] 0.4 mg PO HS 11/29/15 12/17/16 History clonazePAM [KlonoPIN] 1 mg PO HS 11/29/15 12/17/16 History HYDROcodone/APAP 10-325MG [[place] 1 tab PO Q6H PRN 02/17/16 12/17/16 History 10-325] Calcium Carbonate [Calcium] 600 mg PO DAILY 12/17/16 12/17/16 History Folic Acid 1 mg PO HS 12/17/16 12/17/16 History Losartan [Cozaar] 50 mg PO DAILY 12/17/16 12/17/16 History Polyethylene Glycol 3350 [Miralax] 17 gm PO DAILY PRN 12/17/16 12/17/16 History Prochlorperazine [Compazine] 10 mg PO Q6H PRN 12/17/16 12/17/16 History Simethicone [Gas-X] 125 mg PO TID PRN 12/17/16 12/17/16 History Allergies Allergy/AdvReac Type Severity Reaction Status Date / Time telaprevir [From Incivek] Allergy Rash/Hives Verified 02/17/16 15:09 tetracycline Allergy Rash/Hives Verified 02/17/16 15:09 levofloxacin [From Levaquin] AdvReac Altered Verified 12/17/16 16:18 Mental Status Physical Exam Vitals: Vital Signs Temp Pulse Pulse Pulse Resp BP BP 12/18/16 16:00 98.5 F 80 18 112/68 12/18/16 12:00 97.1 F L 86 18 115/71 12/18/16 09:36 113 H 112/56 12/18/16 09:25 97.3 F L 130 H 114/69 12/18/16 09:18 115 H 12/18/16 08:00 170 H 171 H 18 111/91 12/18/16 04:00 97.1 F L 77 16 12/17/16 23:44 115 H 12/17/16 23:20 115 H 16 12/17/16 22:45 164 H 16 12/17/16 20:26 98.5 F 100 18 119/78 12/17/16 20:13 97.5 F L 164 H 16 12/17/16 19:56 104 H 18 107/73 BP Pulse Ox 12/18/16 16:00 95 12/18/16 12:00 94 L 12/18/16 09:36 12/18/16 09:25 12/18/16 09:18 109/60 12/18/16 08:00 95 12/18/16 04:00 122/69 95 12/17/16 23:44 12/17/16 23:20 111/56 96 12/17/16 22:45 12/17/16 20:26 97 12/17/16 20:13 109/70 97 12/17/16 19:56 98 Intake and Output 12/18/16 12/18/16 12/18/16 06:59 14:59 22:59 Intake Total 1226 768.442 970.141 Output Total 450 Balance 1226 318.442 970.141 Intake: IV 1100 800 Sodium Chloride 0.9% 1, 1100 800 000 ml @ 100 mls/hr IV . Q10H ST[facility] Rx#:[id number] Intake, IV Titration 126 288.442 170.141 Amount Diltiazem 125 mg In 84.583 Sodium Chloride 0.9% 100 ml @ 10 MG/HR 10 mls/hr IV .[id number] Rx#: [id number] Heparin Sodium,Porcine/ 126 203.859 170.141 D5w Pmx 25,000 unit In Dextrose/Water 1 500ml. bag @ 9.586 UNITS/KG/HR 20 mls/hr IV .Q24H [facility] Rx #:[id number] Oral 480 Output: Urine 450 Other: Voiding Method Toilet Toilet Urinal Urinal # Voids 1 Weight 103.6 kg - Constitutional General appearance: no acute distress - EENT Eyes: EOMI, PERRLA ENT: hearing grossly normal, normal oropharynx - Neck Neck: no lymphadenopathy Thyroid: bilateral: normal size - Respiratory Respiratory: bilateral: CTA - Cardiovascular Rhythm: irregularly irregular Heart sounds: normal: S1, S2 - Gastrointestinal General gastrointestinal: normal bowel sounds, soft - Integumentary Integumentary: normal - Neurologic Neurologic: CNII-XII intact - Musculoskeletal Right lower extremity, greater in circumference than left. 1+ edema on the right Musculoskeletal: strength equal bilaterally - Psychiatric Psychiatric: A&O x's 3, appropriate affect Results CBC & Chem 7: 12/18/16 05:33 12/17/16 16:30 Labs: Abnormal Lab Results - Last 24 Hours (Table) 12/17/16 12/18/16 12/18/16 Range/Units 22:33 01:20 05:33 Plt Count 124 L (150-450) k/uL APTT 31.1 H (22.0-30.0) sec Troponin I 0.035 H* (0.000-0.034) ng/mL 12/18/16 12/18/16 Range/Units 08:19 16:03 Plt Count (150-450) k/uL APTT 41.5 H 48.7 H (22.0-30.0) sec Troponin I (0.000-0.034) ng/mL Comments: Echocardiogram report reviewed Chest x-ray: report reviewed Assessment and Plan (1) Atrial fibrillation with RVR Narrative/Plan: This is new onset, with no prior history of arrhythmia or other cardiac abnormality. The patient's echo shows well maintained left radicular as well as right ventricular function. The patient is currently improved with rate control medication and IV heparin. Continue current management for cardiology. In a patient with malignancy, on chemotherapy, new onset atrial fibrillation could be the presenting symptom for venous thrombus embolism. I will therefore check a CT of the chest as well as Doppler of the lower extremities, which as noted, show some asymmetric edema on the right. The patient has been tolerating chemotherapy quite well in terms of his blood counts. He has not had any issues with thrombus cytopenia so far. Therefore at this time and no problems are anticipated with ongoing anticoagulation Status: Acute (2) Metastatic lung cancer (metastasis from lung to other site) Narrative/Plan: Diagnostic and therapeutic circumstances, as noted in the HPI. The patient is currently continuing on maintenance Alimta with good tolerance. As noted hematologic tolerance has been quite good with blood counts consistently in a safe range. Continue to monitor counts while in hospital. It is anticipated that he will resume treatment as scheduled on discharge Status: Acute
[2016-12-18] MEDS ORDERED: clonazePAM 1 MG TAB PO SCH (21:00)
[2016-12-18] MEDS ORDERED: TAMSULOSIN 0.4 MG CAP.ER.24H PO SCH (21:00)
[2016-12-18] MEDS ORDERED: FINASTERIDE 5 MG TAB PO SCH (21:00)
[2016-12-18] MEDS ORDERED: LORATADINE 10 MG TAB PO SCH (21:00)
[2016-12-18] MEDS ORDERED: PRAVASTATIN SODIUM 40 MG TAB PO SCH (21:00)
[2016-12-18] MEDS ORDERED: FOLIC ACID 1 MG TAB PO SCH (21:00)
--- NOTE | 2016-12-18 21:01 | CT ---
EXAMINATION TYPE: CT angio chest DATE OF EXAM: 12/18/2016 8:46 PM COMPARISON: NONE HISTORY: R/O PE. hx of lung CA. CT DLP: 421.8 mGycm Automated exposure control for dose reduction was used. CONTRAST: CTA scan of the thorax is performed with IV Contrast, patient injected with 80 mL of Visipaque 320, p ulmonary embolism protocol. There are 3-D post processed images.. FINDINGS: There is patchy pneumonic consolidation in the right upper lobe extending to the right pulmonary hilu m. Trachea is deviated slightly to the right side. There is minimal pleural thickening in the posteri or lateral right upper lobe. I see no filling defects in the pulmonary arteries. There is no pericardial effusion. There are small bilateral pleural effusions. There is no evidence of aortic aneurysm or dissection. The bony thorax appears intact. There is a hemangioma in a lower thoracic vertebra. There is some ost eosclerosis in T5 and T4 vertebral bodies. IMPRESSION: NO EVIDENCE OF PULMONARY EMBOLISM. BILATERAL PLEURAL EFFUSIONS. THERE IS RIGHT UPPER LOBE CONSOLIDATION AND ATELECTASIS THAT SHOWS SIGNIFICANT PROGRESSION COMPARED T O OLD CT SCAN OF 03/17/2016 AND CONSISTENT WITH PROGRESSION OF TUMOR. THERE ARE NEW PLEURAL EFFUSIONS COMPARED TO OLD EXAM. STABLE OSTEOSCLEROSIS IN THE THORACIC VERTEBRA PROBABLY RELATES TO [place].
--- NOTE | 2016-12-18 21:11 | US ---
EXAMINATION TYPE: US venous doppler duplex LE DATE OF EXAM: 12/18/2016 8:55 PM COMPARISON: NONE CLINICAL HISTORY: Leg swelling. Patient is currently taking blood thinners SIDE PERFORMED: Bilateral TECHNIQUE: The lower extremity deep venous system is examined utilizing real time linear array sonog maria ines with graded compression, doppler sonography and color-flow sonography. VESSELS IMAGED: External Iliac Vein (EIV) Common Femoral Vein Deep Femoral Vein Greater Saphenous Vein * Femoral Vein Popliteal Vein Small Saphenous Vein * Proximal Calf Veins (* superficial vessels) Right Leg: Negative for DVT Left Leg: Negative for DVT IMPRESSION: Negative exam. No evidence of deep venous thrombosis in the left and right leg.
[2016-12-18] MEDS: PROCHLORPERAZINE 10 MG TAB PO PRN (21:22)
[2016-12-18] MEDS: SIMETHICONE 80 MG CHEWABLE PO PRN (21:22)
[2016-12-19 06:49] LABS: Aty Lym Flag Moderate; CH 33.1; CHCM 33.5; HCT 33.3 % (39.0-53.0); HDW 2.61; HGB 10.8 gm/dL (13.0-17.5); MCH 32.2 pg (25.0-35.0); MCHC 32.5 g/dL (31.0-37.0); Mean Platelet Volume 8.3; RBC 3.36 m/uL (4.30-5.90); RDW 14.5 % (11.5-15.5); WBC 2.2 k/uL (3.8-10.6); WBC (Perox) 2.11
[2016-12-19 07:04] LABS: Anion Gap 8 mmol/L; Blood Urea Nitrogen 15 mg/dL (9-20); Calcium 8.7 mg/dL (8.4-10.2); Carbon Dioxide 23 mmol/L (22-30); Chloride 107 mmol/L (98-107); Glucose 109 mg/dL (74-99); Non-African American GFR(MDRD) >60 (>60 ml/min/1.73 sqM); Potassium 4.4 mmol/L (3.5-5.1); Sodium 138 mmol/L (137-145)
[2016-12-19 07:15] LABS: Add Differential Manual Differential
[2016-12-19 07:20] LABS: Manual Review Performed; Nucleated Red Blood Cells 0 /100 WBC (0-0); Total Cells Counted 100
[2016-12-19] MEDS: HEPARIN SODIUM,PORCINE 5,000 UNIT/ML 1 ML VIAL IV PRN (07:44)
[2016-12-19] MEDS: DILTIAZEM 125 MG in SODIUM CHLORIDE 0.9% 100 ML IV SCH (07:45)
[2016-12-19] MEDS: HEPARIN SODIUM,PORCINE/D5W PMX 25,000 UNIT in DEXTROSE/WATER 1 500ML.BAG IV SCH (07:45)
[2016-12-19] MEDS: ALPRAZolam 0.5 MG TAB PO SCH (08:10)
[2016-12-19] MEDS: CALCIUM CARBONATE 500 MG CHEWABLE PO SCH (08:11)
[2016-12-19] MEDS: LOSARTAN 25 MG TAB PO SCH (08:11)
[2016-12-19] MEDS: METOPROLOL TARTRATE 25 MG TAB PO SCH (08:11)
[2016-12-19] MEDS: GABAPENTIN 300 MG CAP PO SCH (08:11)
[2016-12-19] MEDS ORDERED: METOPROLOL TARTRATE 25 MG TAB PO ONE (09:00)
[2016-12-19] MEDS ORDERED: APIXABAN 5 MG TAB PO SCH (09:00)
--- NOTE | 2016-12-19 09:15 | PN ---
DATE OF SERVICE: 12/18/2016 This 66-year-old gentleman who was admitted with atrial fibrillation with fast ventricular rate also had multiple other complicating illness including renal failure, history of lung cancer on chemotherapy also. A 2-D echo with Doppler was also done, which showed ejection fraction about 45% to 50%, which is with mild impairment and LA was also dilated. Cardiology is following the patient closely. PAST MEDICAL HISTORY: Reviewed. REVIEW OF SYSTEMS: CARDIOVASCULAR: As mentioned earlier. RESPIRATORY: As mentioned earlier. GI: No nausea. : No dysuria. NERVOUS SYSTEM: No numbness or weakness. HEMATOLOGY/ONCOLOGY: As mentioned earlier. Current medications are reviewed and include: 1. Edison 10 mg. 2. Xanax 0.5 t.i.d. 3. Klonopin 1 mg q.h.s. 4. Diltiazem drip. 5. Proscar. 6. Folic acid. 7. Neurontin. 8. Heparin. 9. Claritin. 10. Cozaar. 11. Lopressor. 12. Nitrostat. 13. MiraLAX. 14. Pravachol. 15. Compazine. 16. Flomax. 17. Restoril. PHYSICAL EXAMINATION: The patient is alert and oriented x3. Pulse is 86 irregular, blood pressure 115/71, respirations 18, temperature 97.1, pulse ox 94% on room air. HEENT: Conjunctivae normal. NECK: No jugular venous distention. CARDIOVASCULAR: S1 and S2, muffled. Tachycardiac, irregular. RESPIRATORY: Breath sounds diminished at the bases. Bilateral scattered rhonchi and crackles. ABDOMEN: Soft, nontender. No mass palpable. LEGS: No edema, no swelling. NERVOUS SYSTEM: Diffusely weak. LABS: WBC 4.4, hemoglobin 11.5. Creatinine is 1.30. Troponin 0.035, 0.018. ASSESSMENT: 1. Atrial flutter with fast ventricular rate. 2. Troponin 0.035, indeterminate, improved. 3. Congestive heart failure with chronic systolic dysfunction, ejection fraction 40% to 45%. 4. Increased creatinine with possible mild acute renal failure, possible prerenal acute tubular necrosis. 5. Hyponatremia. 6. Change in mental status acute metabolic encephalopathy, multifactorial. 7. Anemia, macrocytic. 8. Gait dysfunction. 9. History of right lung cancer, status post chemotherapy. 10. History of hyperlipidemia. 11. History of degenerative joint disease. 12. History of pneumonia. 13. History of prostate disorder. 14. History of sleep apnea. 15. History hepatitis C, treated with interferon. 16. History of sleep apnea on CPAP. 17. History of shingles. 18. History of hard of hearing. 19. History of attention deficit disorder and attention deficit hyperactivity disorder. 20. History of depression, not otherwise specified. 21. History of posttraumatic stress disorder. 22. Remote history of nicotine dependence. 23. History of medical marijuana. 24. FULL CODE. RECOMMENDATIONS AND DISCUSSION: Recommend to continue the current medications. Continue symptomatic treatment. Continue Cardizem drip. Continue with the rest of the medications including vitamin supplementation. Monitor labs closely. The patient is also on the heparin also. Follow closely with Cardiology. Continue to monitor. Prognosis guarded. Discussed with the patient. See orders for further details.
[2016-12-19 10:00] VITALS: RESP 18; TEMP 96.5
[2016-12-19 12:22] VITALS: BP 108/73; PULSE 81
--- NOTE | 2016-12-19 14:17 | P.PN ---
Subjective Principal diagnosis: Atrial fibrillation This is a pleasant 66-year-old gentleman with history of hypertension , diagnosis of lung CA, hyper-lipidemia, prior history of smoking, who presented to the hospital with new onset atrial fibrillation. Patient continues to be in an atrial flutter this morning, heart rate in the 1 teens to low 120s. We will discontinue the IV Cardizem today and increase his dose of beta junior. We will also discontinue the IV heparin and start the patient on Eliquis 5 mg one tablet by mouth twice a day. Overall the patient feels well, he's been up ambulating today without any difficulty. Objective - Vital Signs Vital signs: Vital Signs Temp 96.5 F L 12/19/16 12:00 Pulse 81 12/19/16 12:00 Resp 18 12/19/16 12:00 BP 108/73 12/19/16 12:00 Pulse Ox 96 12/19/16 12:00 Intake & Output 12/18/16 12/19/16 12/19/16 18:59 06:59 18:59 Intake Total 1738.583 214 998.238 Output Total 450 Balance 1288.583 214 998.238 Weight 104.1 kg Intake: IV 800 160 0.9@20 160 Sodium Chloride 0.9% 1, 800 000 ml @ 100 mls/hr IV . Q10H [facility] Rx#:[id number] Intake, IV Titration 458.583 54 518.238 Amount Diltiazem 125 mg In 84.583 Sodium Chloride 0.9% 100 ml @ 10 MG/HR 10 mls/hr IV .[id number] [facility] Rx#: [id number] Diltiazem 125 mg In 54 88.167 Sodium Chloride 0.9% 100 ml @ 10 MG/HR 10 mls/hr IV .[id number] [facility] Rx#: [id number] Heparin Sodium,Porcine/ 374.000 430.071 D5w Pmx 25,000 unit In Dextrose/Water 1 500ml. bag @ 9.586 UNITS/KG/HR 20 mls/hr IV .Q24H [facility] Rx #:[id number] Oral 480 480 Output: Urine 450 Other: Voiding Method Toilet Toilet Toilet Urinal # Voids 1 2 - Exam PHYSICAL EXAMINATION: HEENT: Head is atraumatic, normocephalic. Pupils equal, round. Neck is supple. There is no elevated jugular venous pressure. HEART EXAMINATION: Heart S1, S2 irregularly irregular . No murmur or gallop heard. CHEST EXAMINATION: Lungs are clear to auscultation and precussion. No chest wall tenderness is noted on palpation or with deep breathing. ABDOMEN: Soft, nontender. Bowel sounds are heard. No organomegaly noted. EXTREMITIES: 2+ peripheral pulses with no evidence of peripheral edema and no calf tenderness noted. NEUROLOGIC patient is awake, alert and oriented -3. . - Labs CBC & Chem 7: 12/19/16 06:28 12/19/16 06:28 Labs: Abnormal Lab Results - Last 24 Hours (Table) 12/18/16 12/19/16 12/19/16 Range/Units 16:03 06:28 06:28 WBC 2.2 L (3.8-10.6) k/uL RBC 3.36 L (4.30-5.90) m/uL Hgb 10.8 L (13.0-17.5) gm/dL Hct 33.3 L (39.0-53.0) % Plt Count 118 L (150-450) k/uL Neutrophils # (Manual) 0.7 L (1.3-7.7) k/uL APTT 48.7 H (22.0-30.0) sec Glucose 109 H (74-99) mg/dL Assessment and Plan Plan: Assessment and plan #1 atrial flutter with rapid ventricular response, appears to be of new onset. Paroxysmal. #2 hypertension #3 hyperlipidemia #4 history of hepatitis C with interferon therapy # 5 sleep apnea #6 lung CA, status post chemotherapy #7 mildly renal insufficiency, creatinine 1.3 #8 hypokalemia #9 abnormal troponins, likely secondary to oxygen supply and demand mismatch, patient did have a Lexiscan stress test performed one year ago which was negative for any reversible ischemia. Plan Echocardiogram with Doppler study was performed which revealed an ejection fraction of 45-50%. Patient may be able to be discharged home today. We will discontinue the IV Cardizem and increase the dose of beta junior. IV heparin has also been discontinued and patient has been initiated on Eliquis 5 mg one tablet by mouth twice a day. He will have a follow-up appointment with Dr. Samman in the office post discharge. DNP note has been reviewed, I agree with a documented findings and plan of care. Patient was seen and examined.
--- NOTE | 2016-12-19 20:29 | DS ---
DATE OF ADMISSION: 12/17/2016 DATE OF DISCHARGE: 12/19/2016 FINAL DIAGNOSES: 1. Atrial flutter with fast ventricular rate, controlled. 2. Troponin 0.035 indeterminate, improved. 3. Congestive heart failure with chronic systolic dysfunction, ejection fraction 40% to 45%. 4. Increased creatinine with possible mild acute renal failure, possible prerenal acute tubular necrosis. 5. Hyponatremia. 6. Change in mental status, acute metabolic encephalopathy, multifactorial. 7. Anemia, macrocytic. 8. Gait dysfunction. 9. History of right lung cancer, status post chemotherapy. 10. History of hyperlipidemia. 11. History of degenerative joint disease. 12. History of pneumonia. 13. History of prostate disorder. 14. History of sleep apnea. 15. History of hepatitis C treated with interferon previously. 16. History of sleep apnea on CPAP. 17. History of Shingles. 18. History of hard of hearing. 19. History attention deficit disorder, attention deficit hyperactivity disorder. 20. History of depression, not otherwise specified. 21. History of posttraumatic stress disorder. 22. Remote history of nicotine dependence. 23. History of medical marijuana. 24. FULL CODE. DISCHARGE DISPOSITION: The patient will be discharged in stable condition with guarded prognosis. HISTORY OF PRESENT ILLNESS: This 66-year-old gentleman with a past medical history of multiple medical problems admitted with atrial fibrillation with fast ventricular rate. Patient was started on Cardizem, improved significantly. Eliquis was started. Patient seen by Cardiology. On exam vitals are stable. CARDIOVASCULAR: S1, S2 irregular. ABDOMEN: Soft. NERVOUS SYSTEM: No focal deficits. LABS: WBC 2, hemoglobin 10. The patient seen by Hematology, Oncology and recommended outpatient treatment. DISCHARGE ADVICE: 1. Diet is cardiac. 2. Activity limited until follow-up. 3. Follow up with Dr. Leon in one week. 4. Follow up with Dr. Viviana Argueta in 2 to 3. 5. Follow with Cardiology as recommended. Medications are as follows: 1. Xanax 0.5 p.o. t.i.d. 2. Eliquis 5 mg p.o. b.i.d. 3. Calcium carbonate 600 mg p.o. daily. 4. Klonopin 1 mg at bedtime. 5. Dexamphetamine 20 mg p.o. daily. 6. Proscar 5 mg q.6. 7. Folic acid 1 mg q.6. 8. Gabapentin 600 mg t.i.d. 9. Butler 10 mg q.6 p.r.n. 10. Claritin 10 mg q.h.s. 11. Cozaar 25 mg p.o. daily. 12. Lopressor 50 mg p.o. b.i.d. 13. MiraLAX 17 grams p.o. daily. 14. Pravachol 40 mg q.h.s. 15. Compazine 10 mg q.6 p.r.n. 16. Gas-X 125 mg p.o. t.i.d. 17. Flomax 0.4 q.h.s. Once again, the patient will be discharged in a stable condition with guarded prognosis.
[2016-12-19] MEDS ORDERED: METOPROLOL TARTRATE 50 MG TAB PO SCH (21:00)
== END 2016-12-19 14:30 | disposition home or self-care (01) | DRG 308 ==
LOC: EC 15:40 → 6SEL 19:10
PROVIDERS: ADMIT Hospitalist; ATTEND Hospitalist
DX: I48.92 Unspecified atrial flutter (principal); G93.41 Metabolic encephalopathy; N17.9 Acute kidney failure, unspecified; I11.0 Hypertensive heart disease with heart failure; I50.22 Chronic systolic (congestive) heart failure; C79.51 Secondary malignant neoplasm of bone; I48.91 Unspecified atrial fibrillation; E78.5 Hyperlipidemia, unspecified; G47.30 Sleep apnea, unspecified; F90.9 Attention-deficit hyperactivity disorder, unspecified type; F43.10 Post-traumatic stress disorder, unspecified; D53.9 Nutritional anemia, unspecified; R26.9 Unspecified abnormalities of gait and mobility; N40.0 Benign prostatic hyperplasia without lower urinary tract symptoms; M54.30 Sciatica, unspecified side; F32.9 Major depressive disorder, single episode, unspecified; Z90.49 Acquired absence of other specified parts of digestive tract; Z92.21 Personal history of antineoplastic chemotherapy; Z85.118 Personal history of other malignant neoplasm of bronchus and lung; M19.91 Primary osteoarthritis, unspecified site; Z87.01 Personal history of pneumonia (recurrent); Z86.19 Personal history of other infectious and parasitic diseases; H91.90 Unspecified hearing loss, unspecified ear; Z87.891 Personal history of nicotine dependence; Z92.3 Personal history of irradiation; Z82.49 Family history of ischemic heart disease and other diseases of the circulatory system; Z79.899 Other long term (current) drug therapy; Z88.1 Allergy status to other antibiotic agents; Z88.8 Allergy status to other drugs, medicaments and biological substances
CPT/HCPCS: 36415; 71010; 71275; 80048; 80053; 80061; 82550; 82553; 83735; 84439; 84443; 84481; 84484; 85025; 85049; 85610; 85730; 93005; 93306; 93970; 96365; 96366; 96368; 96376; 99291

== ENCOUNTER 2017-07-04 17:35 | Inpatient (IN) | payer OTHER, MEDICARE ==
[2017-07-04] MEDS ORDERED: SODIUM CHLORIDE 0.9% 1,000 ML IV ONE (18:23)
--- NOTE | 2017-07-04 18:37 | ED ---
Extremity Problem HPI - General Chief complaint: Extremity Problem,Nontraumatic Stated complaint: POSS CELLULITIS BOTH LEGS Time Seen by Provider: 07/04/17 18:02 Source: patient, RN notes reviewed, old records reviewed Mode of arrival: ambulatory Limitations: no limitations - History of Present Illness Initial comments: This is a 66-year-old male with low back, presents emergency Department with leg right lower extremity cellulitis, and left lower extremity cellulitis. Patient reports that he noticed the redness started yesterday evening into today. He reports that he was admitted for this in the past in mid May. He reports that he is concerned that he does not want this to get worse, compared to his previous admission. His last chemotherapy was on June 26. He did have a PET scan today but does not know the results of this time. Patient reports that his last blood draw showed a white count of 3.2. Patient denies any fever or chills. He reports it is been increasingly fatigued over the past 3 days. Denies any other symptoms including chest pain, shortness of breath, abdominal pain, nausea or vomiting. - Related Data Home Medications Medication Instructions Recorded Confirmed ALPRAZolam [Xanax] 0.5 mg PO TID 11/29/15 07/04/17 Finasteride [Proscar] 5 mg PO HS 11/29/15 07/04/17 Gabapentin 600 mg PO TID 11/29/15 07/04/17 Tamsulosin HCl [Flomax] 0.4 mg PO HS 11/29/15 07/04/17 clonazePAM [KlonoPIN] 1 mg PO HS 11/29/15 07/04/17 HYDROcodone/APAP 10-325MG [Dickens 1 tab PO Q6H PRN 02/17/16 07/04/17 10-325] Folic Acid 1 mg PO HS 12/17/16 07/04/17 Simethicone [Gas-X] 125 mg PO TID PRN 12/17/16 07/04/17 Atomoxetine HCl [Strattera] 25 mg PO DAILY 06/11/17 07/04/17 Furosemide [Lasix] 20 mg PO BID PRN 06/11/17 07/04/17 Potassium Chloride ER [K-Dur 10] 10 meq PO BID PRN 06/11/17 07/04/17 Pravastatin Sodium [Pravachol] 80 mg PO HS 06/11/17 07/04/17 Cetirizine HCl [Zyrtec] 10 mg PO DAILY 07/04/17 07/04/17 Previous Rx's Medication Instructions Recorded Apixaban [Eliquis] 5 mg PO BID tab 12/19/16 Metoprolol Tartrate [Lopressor] 50 mg PO BID #60 tab 12/19/16 Allergies Allergy/AdvReac Type Severity Reaction Status Date / Time telaprevir [From Incivek] Allergy Rash/Hives Verified 07/04/17 18:45 tetracycline Allergy Rash/Hives Verified 07/04/17 18:45 levofloxacin [From Levaquin] AdvReac Altered Verified 07/04/17 18:45 Mental Status Review of Systems ROS Statement: Those systems with pertinent positive or pertinent negative responses have been documented in the HPI. ROS Other: All systems not noted in ROS Statement are negative. Past Medical History Past Medical History: Atrial Fibrillation, Cancer, Hyperlipidemia, Osteoarthritis (OA), Pneumonia, Prostate Disorder, Sleep Apnea/CPAP/BIPAP Additional Past Medical History / Comment(s): rt lung mass,vertigo/RECENT SINUS INFECTION , hepatitis c-RECEIVED TX WITH INTERFERON,INCIVEK, sleep apnea USES A CPAP MACHINE, BPH, sciatica, SHINGLES >20 YEARS AGO,WEARS [place] HEARING AIDS, [place].steroid use w/in 3 mos, chemo-on maintance dose -next due 06-26-17 History of Any Multi-Drug Resistant Organisms: None Reported Past Surgical History: Cholecystectomy, Orthopedic Surgery Additional Past Surgical History / Comment(s): sinus/SLEEP APNEA SX, RT KNEE ARTHROSCOPY AND MENISCAL TEAR REPAIR,LASIK EYE SX ,COLONOSCOPY, SKIN LESION REMOVED"PRECANCEROUS" Past Anesthesia/Blood Transfusion Reactions: No Reported Reaction, Motion Sickness Past Psychological History: ADD/ADHD, Depression, PTSD Smoking Status: Former smoker Past Alcohol Use History: None Reported Past Drug Use History: Marijuana - Past Family History Father Family Medical History: Hyperlipidemia, Myocardial Infarction (MS) Mother Additional Family Medical History / Comment(s): PT'S MOM FROM COMPLICATIONS FROM MS WHEN PT WAS 6 YEARS OLD. General Exam - General Exam Comments Initial Comments: This is a 66-year-old male. Limitations: no limitations General appearance: alert, in no apparent distress Head exam: Present: atraumatic, normocephalic, normal inspection Eye exam: Present: normal appearance, PERRL, EOMI. Absent: scleral icterus, conjunctival injection, periorbital swelling ENT exam: Present: normal exam, mucous membranes moist Neck exam: Present: normal inspection. Absent: tenderness, meningismus, lymphadenopathy Respiratory exam: Present: normal lung sounds bilaterally. Absent: respiratory distress, wheezes, rales, rhonchi, stridor Cardiovascular Exam: Present: regular rate, normal rhythm, normal heart sounds. Absent: systolic murmur, diastolic murmur, rubs, gallop, clicks GI/Abdominal exam: Present: soft, normal bowel sounds. Absent: distended, tenderness, guarding, rebound, rigid Extremities exam: Present: normal inspection, full ROM, normal capillary refill , other (Patient has significant erythema extending over the right foot and calf. He does have some area of erythema extending over the posterior thigh. Patient has significant swelling, induration noted. Patient has some erythema over the medial left ankle. Swelling noted.). Absent: tenderness, pedal edema , joint swelling, calf tenderness Back exam: Present: normal inspection Neurological exam: Present: alert, oriented X3, CN II-XII intact Psychiatric exam: Present: normal affect, normal mood Skin exam: Present: warm, dry, intact, normal color. Absent: rash Course Vital Signs 07/04/17 17:51 Temperature 97.0 F L Pulse Rate 103 H Respiratory 18 Rate Blood Pressure 116/76 O2 Sat by Pulse 98 Oximetry Medical Decision Making - Medical Decision Making Patient is a 66-year-old male with history of adenocarcinoma the right upper lung field treated by Dr. singh, left chemotherapy was on 1229. Patient arrives today with some erythema over the right lower extremity the dorsum of the foot extending towards the posterior calf. It started yesterday. He reports that this happened similarly 2 weeks ago, patient was admitted on IV antibiotics and discharged shortly afterward. He denies any breaks in the skin. His is doing proper wound care. At this time patient's labwork was reviewed and is scattered white count of 2.5. Neutropenic. Patient will be started on IV vancomycin. I discussed the case with RG Palmer for precaution the emergency department. Patient will be admitted under their service at this time. Also ultrasound was performed is negative for DVTs. - Lab Data Result diagrams: 07/04/17 19:38 07/04/17 19:38 Lab Results 07/04/17 07/04/17 07/04/17 Range/Units 19:38 19:38 19:38 WBC 2.5 L (3.8-10.6) k/uL RBC 3.13 L (4.30-5.90) m/uL Hgb 10.6 L (13.0-17.5) gm/dL Hct 31.5 L (39.0-53.0) % MCV 100.4 H (80.0-100.0) fL MCH 33.8 (25.0-35.0) pg MCHC 33.7 (31.0-37.0) g/dL RDW 15.2 (11.5-15.5) % Plt Count 114 L (150-450) k/uL Neutrophils % 44 % Lymphocytes % 43 % Monocytes % 6 % Eosinophils % 3 % Basophils % 0 % Neutrophils # 1.1 L (1.3-7.7) k/uL Lymphocytes # 1.1 (1.0-4.8) k/uL Monocytes # 0.2 (0-1.0) k/uL Eosinophils # 0.1 (0-0.7) k/uL Basophils # 0.0 (0-0.2) k/uL Macrocytosis Slight Sodium 137 (137-145) mmol/L Chloride 101 (98-107) mmol/L Carbon Dioxide 28 (22-30) mmol/L Anion Gap 8 mmol/L BUN 21 H (9-20) mg/dL Creatinine 1.00 (0.66-1.25) mg/dL Est GFR (MDRD) Af Amer >60 (>60 ml/min/1.73 sqM) Est GFR (MDRD) Non-Af >60 (>60 ml/min/1.73 sqM) Glucose 148 H (74-99) mg/dL Plasma Lactic Acid Issa 0.9 (0.7-2.0) mmol/L Calcium 8.9 (8.4-10.2) mg/dL Total Bilirubin 0.8 (0.2-1.3) mg/dL AST 25 (17-59) U/L ALT 46 (21-72) U/L Alkaline Phosphatase 55 (38-126) U/L Total Protein 7.1 (6.3-8.2) g/dL Albumin 3.7 (3.5-5.0) g/dL - Radiology Data Radiology results: report reviewed Ultrasound is negative for DVT. Disposition Clinical Impression: Cellulitis of right leg, Neutropenia, Metastatic lung cancer (metastasis from lung to other site) Disposition: ADMITTED IP TO THIS [facility] Condition: Stable Referrals: Viviana Argueta DO [Primary Care Provider] - 1-2 days Time of Disposition: 20:08
--- NOTE | 2017-07-04 19:35 | US ---
EXAMINATION TYPE: US venous doppler duplex LE DATE OF EXAM: 07/04/2017 6:23 PM COMPARISON: US bilateral venous June 10, 2017 CLINICAL HISTORY: Pain. Bilateral cellulitis, patient on blood thinners SIDE PERFORMED: Bilateral TECHNIQUE: The lower extremity deep venous system is examined utilizing real time linear array sonog maria ines with graded compression, doppler sonography and color-flow sonography. VESSELS IMAGED: External Iliac Vein (EIV) Common Femoral Vein Deep Femoral Vein Greater Saphenous Vein * Femoral Vein Popliteal Vein Small Saphenous Vein * Proximal Calf Veins (* superficial vessels) Right Leg: Appears negative for DVT Left Leg: Appears negative for DVT Grayscale, color doppler, spectral doppler imaging performed of the deep veins of the bilateral lower extremities. There is normal flow, compressibility, vascular waveforms. IMPRESSION: No ultrasound evidence for acute DVT in either lower extremity. No significant change fr om prior.
[2017-07-04] MEDS: SODIUM CHLORIDE 0.9% 1,000 ML IV SCH (19:49)
[2017-07-04 19:51] LABS: Basophils % (A) 0 %; Eosinophils # (A) 0.1 k/uL (0-0.7); Eosinophils % (A) 3 %; HCT 31.5 % (39.0-53.0); HGB 10.6 gm/dL (13.0-17.5); Lymphocytes # (A) 1.1 k/uL (1.0-4.8); Lymphocytes % (A) 43 %; MCH 33.8 pg (25.0-35.0); MCHC 33.7 g/dL (31.0-37.0); MCV 100.4 fL (80.0-100.0); Macrocytosis Slight; Mean Platelet Volume 8.4; Monocytes # (A) 0.2 k/uL (0-1.0); Monocytes % (A) 6 %; Neutrophils # (A) 1.1 k/uL (1.3-7.7); Neutrophils % (A) 44 %; Platelet Count 114 k/uL (150-450); RBC 3.13 m/uL (4.30-5.90); RDW 15.2 % (11.5-15.5); WBC 2.5 k/uL (3.8-10.6)
[2017-07-04 20:00] LABS: ALT 46 U/L (21-72); AST 25 U/L (17-59); Albumin 3.7 g/dL (3.5-5.0); Alkaline Phosphatase 55 U/L (38-126); Anion Gap 8 mmol/L; Blood Urea Nitrogen 21 mg/dL (9-20); Calcium 8.9 mg/dL (8.4-10.2); Carbon Dioxide 28 mmol/L (22-30); Chloride 101 mmol/L (98-107); Glucose 148 mg/dL (74-99); Sodium 137 mmol/L (137-145); Total Bilirubin 0.8 mg/dL (0.2-1.3); Total Protein 7.1 g/dL (6.3-8.2)
[2017-07-04] MEDS ORDERED: VANCOMYCIN IV PER PHARMACY 1 EACH MISC MISCELLANE PRN (20:06)
[2017-07-04] MEDS ORDERED: IBUPROFEN 400 MG TAB PO PRN (20:08)
[2017-07-04] MEDS ORDERED: LORazepam 2 MG/ML INJ IV PRN (20:08)
[2017-07-04] MEDS ORDERED: HYDROmorphone 2 MG/ML 1 ML SYRINGE IVP PRN (20:08)
[2017-07-04] MEDS ORDERED: NALOXONE 0.4 MG/ML 1 ML VIAL IV PRN (20:08)
[2017-07-04] MEDS ORDERED: MORPHINE SULFATE 5 MG/ML SYRINGE IV PRN (20:08)
[2017-07-04] MEDS ORDERED: ACETAMINOPHEN TAB 325 MG TAB PO PRN (20:08)
[2017-07-04] MEDS ORDERED: ONDANSETRON 4 MG/2 ML VIAL IVP PRN (20:08)
[2017-07-04] MEDS ORDERED: KETOROLAC 30 MG/ML 1 ML VIAL IVP PRN (20:08)
[2017-07-04 20:10] LABS: Potassium 3.8 mmol/L (3.5-5.1)
[2017-07-04] MEDS ORDERED: SIMETHICONE 80 MG CHEWABLE PO PRN (20:10)
[2017-07-04] MEDS ORDERED: POTASSIUM CHLORIDE ER 10 MEQ TAB.ER.PRT PO PRN (20:10)
[2017-07-04] MEDS ORDERED: FUROSEMIDE 20 MG TAB PO PRN (20:10)
[2017-07-04] MEDS ORDERED: HYDROcodone/APAP 10-325MG 1 EACH TAB PO PRN (20:10)
[2017-07-04] MEDS ORDERED: VANCOMYCIN 2,000 MG in SODIUM CHLORIDE 0.9% 500 ML IVPB STA (20:22)
[2017-07-04 20:55] LABS: INR 1.1 (<1.2); Partial Thromboplastin Time 38.7 sec (22.0-30.0); Prothrombin Time 10.4 sec (9.0-12.0)
[2017-07-04] MEDS: ALPRAZolam 0.5 MG TAB PO SCH (22:09)
[2017-07-04] MEDS: clonazePAM 1 MG TAB PO SCH (22:09)
[2017-07-04] MEDS: TAMSULOSIN 0.4 MG CAP.ER.24H PO SCH (22:10)
[2017-07-04] MEDS: GABAPENTIN 300 MG CAP PO SCH (22:10)
[2017-07-04] MEDS: FINASTERIDE 5 MG TAB PO SCH (22:10)
[2017-07-04] MEDS: FOLIC ACID 1 MG TAB PO SCH (22:10)
[2017-07-04] MEDS: METOPROLOL TARTRATE 50 MG TAB PO SCH (22:10)
[2017-07-04] MEDS: APIXABAN 5 MG TAB PO SCH (22:10)
[2017-07-04] MEDS: PRAVASTATIN SODIUM 80 MG TAB PO SCH (22:10)
[2017-07-05] MEDS: SODIUM CHLORIDE 0.9% 1,000 ML IV SCH ×2 (06:09→14:49)
[2017-07-05] MEDS: VANCOMYCIN 2,000 MG in SODIUM CHLORIDE 0.9% 500 ML IVPB SCH ×2 (07:38→20:51)
[2017-07-05 08:35] LABS: Anion Gap 5 mmol/L; Blood Urea Nitrogen 16 mg/dL (9-20); Calcium 8.2 mg/dL (8.4-10.2); Carbon Dioxide 26 mmol/L (22-30); Chloride 105 mmol/L (98-107); Glucose 112 mg/dL (74-99); Sodium 136 mmol/L (137-145)
[2017-07-05] MEDS: ATOMOXETINE HCL 25 MG PO SCH (08:43)
[2017-07-05] MEDS: ALPRAZolam 0.5 MG TAB PO SCH ×3 (08:43→20:51)
[2017-07-05] MEDS: LORATADINE 10 MG TAB PO SCH (08:44)
[2017-07-05] MEDS: GABAPENTIN 300 MG CAP PO SCH ×3 (08:44→20:51)
[2017-07-05] MEDS: APIXABAN 5 MG TAB PO SCH ×2 (08:44→20:51)
[2017-07-05] MEDS: METOPROLOL TARTRATE 50 MG TAB PO SCH ×2 (08:44→20:52)
[2017-07-05] MEDS: PANTOPRAZOLE 40 MG/10 ML VIAL IV SCH (08:45)
--- NOTE | 2017-07-05 08:45 | P.HPIM ---
History of Present Illness H&P Date: 07/04/17 Chief Complaint: Bilateral lower extremity cellulitis/swelling HISTORY OF PRESENT ILLNESS: 66-year-old male patient of Dr. Viviana Argueta with chronic stable medical conditions that include right upper lobe cancer with last chemotherapy about a month ago benign prostatic hypertrophy, obstructive sleep apnea uses a CPAP machine, hepatitis C, hard of hearing, who presents to the emergency department today with bilateral lower extremity swelling for the past few days. Was seen for the same problem about 3 weeks ago was discharged home on a course of antibiotics and local wound care to the bilateral lower extremities with great improvement. Patient and state that symptoms were very sudden in the last couple days increasing redness swelling warmth, patient generally not feeling well, what prompted them to return to the emergency department was the patient was not able to bear weight on his right lower extremity hence the patient came in for further evaluation and treatment. REVIEW OF SYSTEMS GEN.: [ Tired] EYES: [None] HEENT: [None] NECK: [None] RESPIRATORY: [None] CARDIOVASCULAR: [None] GASTROINTESTINAL: [None] GENITOURINARY: [Some difficulty initiating a stream, some dribbling.] MUSCULOSKELETAL: [Bilateral lower extremity pain] LYMPHATICS: [None] HEMATOLOGICAL: [None] PSYCHIATRY: [PTSD, ADD, depression] NEUROLOGICAL: [None] PAST MEDICAL HISTORY Past medical history: Right upper lobe lung cancer, hyperlipidemia, benign prostatic hypertrophy, sleep apnea, CPAP and use. Hepatitis C, chronic atrial fibrillation Past surgical history: Cholecystectomy, right knee arthroscopy, meniscal tear repair, basic eye surgery, colonoscopy, precancerous skin lesion removed. Past psychological history: Depression, ADD/ADHD, PTSD. SOCIAL HISTORY: Additional psychological/social history: None Smoking use history: Pack per day 15 years, patient quit in 1982 Alcohol use history: Denies Drug use history: Marijuana use to 3 times a week, takes a couple of "hits" each time he uses, does not usually smoke a full joint. 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 FAMILY HISTORY: Father: :, Patient to coronary bypass surgery. Mother: :, Patient's for multiple sclerosis. ALLERGIES: TELAPREVIR, TETRACYCLINE, LEVOFLOXACIN HOME MEDICATION: Clonazepam 1 mg by mouth at bedtime Tamsulosin 0.4 mg by mouth at bedtime Simethicone 125 mg by mouth 3 times a day when necessary Compazine 10 mg by mouth every 6 hours when necessary Hydrocodone 10-325 mg 1 tablet by mouth every 6 hours when necessary Pravastatin sodium 80 mg by mouth daily Potassium chloride ER 10 mEq by mouth twice a day when necessary Metoprolol tartrate 50 mg by mouth twice a day Gabapentin 600 mg by mouth 3 times a day Furosemide 20 mg by mouth twice a day when necessary folic acid 1 mg by mouth daily Finasteride 5 mg by mouth daily Folic acid 1 mg by mouth daily Zyrtec 10 mg by mouth daily Strattera 25 mg by mouth daily Eliquis 5 mg by mouth twice a day Apixaban 5 mg by mouth twice a day Alprazolam 0.5 mg by mouth 3 times a day VITAL SIGNS: [Temperature 97.8, pulse 98, respiratory rate 18, blood pressure 139/74, oxygen saturation 96% on room air. BMI 33.4] GENERAL: [Average built, sitting up, comfortable]. EYES: [Pupils equal. Conjunctiva dayanna]l. HEENT: [External appearance of nose and ears normal, oral cavity grossly normal] . NECK: [JVD not raised; masses not palpable]. HEART: [First and second heart sounds are normal; mild edema]. LUNGS:[ Respiratory rate normal; clear to auscultation]. ABDOMEN: [Soft, nontender, liver spleen not palpable, no masses palpable]. LYMPHATICS: [No lymph nodes palpable in the axilla and neck]. PSYCH: [Alert and oriented x3; mood and affect dayanna]l. NEUROLOGICAL: [Cranial nerves grossly intact; no facial asymmetry, power and sensation grossly intact]. INTEGUMENT: Bilateral lower extremities reddened right more so than left redness extends on the right leg up to the posterior upper thigh INVESTIGATIONS: LABS: White blood cell count 2.5, hemoglobin 10.6, Accu-Cheks noted, BUN 21, creatinine 1.00 Venous Doppler study: Left leg negative for DVT, right leg negative for DVT ASSESSMENT: -Acute bilateral lower extremity cellulitis in a patient who is immunosuppressed , secondary to chemotherapy. 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 -Benign prostatic hypertrophy. -Obstructive sleep apnea uses CPAP machine. -Hepatitis C treated with interferon -Proximal atrial fibrillation currently in sinus rhythm on Apixaban. -Chronic congestive heart failure from systolic dysfunction EF of 40-45% probably could be from hypertensive heart disease. -Hyperlipidemia. -Depression not otherwise specified. -Hard of hearing with bilateral hearing aids. -Pancytopenia secondary to chemotherapy. PLAN: Home medications reordered, antibiotic therapy initiated consulted infectious disease, continue current local dressing changes will await additional input from infectious disease regarding this. Plan of care discussed with the patient and family at bedside there in agreement. We will follow closely. DIRECTOR OF AUTOMATION STATEMENT: Patient was seen and examined by nurse practitioner Jesi Alcala and all elements of the case were discussed with attending Dr. Lester. Past Medical History Past Medical History: Atrial Fibrillation, Cancer, Hyperlipidemia, Osteoarthritis (OA), Pneumonia, Prostate Disorder, Sleep Apnea/CPAP/BIPAP Additional Past Medical History / Comment(s): rt lung mass,vertigo/RECENT SINUS INFECTION , hepatitis c-RECEIVED TX WITH INTERFERON,INCIVEK, sleep apnea USES A CPAP MACHINE, BPH, sciatica, SHINGLES >20 YEARS AGO,WEARS [place] HEARING AIDS, LOWER BRIDGE.steroid use w/in 3 mos, chemo-on maintance dose -next due 06-26-17 History of Any Multi-Drug Resistant Organisms: None Reported Past Surgical History: Cholecystectomy, Orthopedic Surgery Additional Past Surgical History / Comment(s): sinus/SLEEP APNEA SX, RT KNEE ARTHROSCOPY AND MENISCAL TEAR REPAIR,LASIK EYE SX ,COLONOSCOPY, SKIN LESION REMOVED"PRECANCEROUS" Past Anesthesia/Blood Transfusion Reactions: No Reported Reaction, Motion Sickness Past Psychological History: ADD/ADHD, Depression, PTSD Additional Psychological History / Comment(s): PT LIVES AT HOME WITH HIS SARA, IS INDEPENDANT. Smoking Status: Former smoker Past Alcohol Use History: None Reported Additional Past Alcohol Use History / Comment(s): Patient was a smoker one pack per day for 15 years and quit in 1982. He uses marijuana 2-3 times per week. He is and lives at home with his . There are 3 dogs in the home. 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 He was in the [employer] stationed in [place] and was exposed to agent orange. Past Drug Use History: Marijuana Additional Drug Use History / Comment(s): MEDICAL MARIJUANA-occ use - Past Family History Father Family Medical History: Hyperlipidemia, Myocardial Infarction (CT) Mother Additional Family Medical History / Comment(s): PT'S MOM FROM COMPLICATIONS FROM MS WHEN PT WAS 4 YEARS OLD. Medications and Allergies Home Medications Medication Instructions Recorded Confirmed Type ALPRAZolam [Xanax] 0.5 mg PO TID 11/29/15 07/04/17 History Finasteride [Proscar] 5 mg PO HS 11/29/15 07/04/17 History Gabapentin 600 mg PO TID 11/29/15 07/04/17 History Tamsulosin HCl [Flomax] 0.4 mg PO HS 11/29/15 07/04/17 History clonazePAM [KlonoPIN] 1 mg PO HS 11/29/15 07/04/17 History HYDROcodone/APAP 10-325MG [[place] 1 tab PO Q6H PRN 02/17/16 07/04/17 History 10-325] Folic Acid 1 mg PO HS 12/17/16 07/04/17 History Simethicone [Gas-X] 125 mg PO TID PRN 12/17/16 07/04/17 History Apixaban [Eliquis] 5 mg PO BID tab 12/19/16 07/04/17 Rx Metoprolol Tartrate [Lopressor] 50 mg PO BID #60 tab 12/19/16 07/04/17 Rx Atomoxetine HCl [Strattera] 25 mg PO DAILY 06/11/17 07/04/17 History Furosemide [Lasix] 20 mg PO BID PRN 06/11/17 07/04/17 History Potassium Chloride ER [K-Dur 10] 10 meq PO BID PRN 06/11/17 07/04/17 History Pravastatin Sodium [Pravachol] 80 mg PO HS 06/11/17 07/04/17 History Cetirizine HCl [Zyrtec] 10 mg PO HS 07/04/17 07/04/17 History Allergies Allergy/AdvReac Type Severity Reaction Status Date / Time telaprevir [From Incivek] Allergy Rash/Hives Verified 07/04/17 18:45 tetracycline Allergy Rash/Hives Verified 07/04/17 18:45 levofloxacin [From Levaquin] AdvReac Altered Verified 07/04/17 18:45 Mental Status Physical Exam Vitals: Vital Signs Temp Pulse Pulse Resp BP BP Pulse Ox 07/04/17 21:37 98 F 94 16 146/83 98 07/04/17 20:50 97.8 F 98 18 139/74 96 07/04/17 19:56 97 18 138/79 96 07/04/17 17:51 97.0 F L 103 H 18 116/76 98 Intake and Output 07/04/17 07/04/17 07/04/17 06:59 14:59 22:59 Other: Weight 118 kg Patient Weight 07/05/17 06:59 Weight 118 kg Results CBC & Chem 7: 07/04/17 19:38 07/04/17 19:38 Labs: Abnormal Lab Results - Last 24 Hours (Table) 07/04/17 07/04/17 07/04/17 Range/Units 19:38 19:38 19:38 WBC 2.5 L (3.8-10.6) k/uL RBC 3.13 L (4.30-5.90) m/uL Hgb 10.6 L (13.0-17.5) gm/dL Hct 31.5 L (39.0-53.0) % MCV 100.4 H (80.0-100.0) fL Plt Count 114 L (150-450) k/uL Neutrophils # 1.1 L (1.3-7.7) k/uL APTT 38.7 H (22.0-30.0) sec BUN 21 H (9-20) mg/dL Glucose 148 H (74-99) mg/dL Thrombosis Risk Factor Assmnt - Choose All That Apply Any of the Below Risk Factors Present?: Yes Each Factor Represents 1 point: Obesity (BMI >25), Swollen legs (current) Other Risk Factors: Yes Each Risk Factor Represents 2 Points: Age 61-74 years, Central venous access Other congenital or acquired thrombophilia - If yes, enter type in comment: No Thrombosis Risk Factor Assessment Total Risk Factor Score: 6 Thrombosis Risk Factor Assessment Level: High Risk
--- NOTE | 2017-07-05 19:06 | PN ---
PROGRESS NOTE DATE OF SERVICE: 07/05/17 PRESENTING COMPLAINT: Colitis. INTERVAL HISTORY: This is a patient with adenocarcinoma of lung, status post chemo and radiation treatment, presents with recurrence of lower extremity cellulitis going to above and behind the right knee and also some on the left leg. Denies any fever. Appetite had gone down weak and tired. is present at the bedside. REVIEW OF SYSTEMS: Done for constitutional, cardiovascular, GI, pulmonary and relevant findings as above. CURRENT MEDICATIONS: Reviewed that include IV vancomycin. On examination, afebrile, pulse 81, respiratory 18, blood pressure 117/70, pulse ox 96% on room air. General appearance: Sitting up, comfortable. Eyes: Pupils equal. Conjunctivae normal. Neck JVD not raised. Mass not palpable. Respiratory effort lungs slightly decreased breath sounds. Cardiovascular 1st and 2nd sounds normal. No edema. ABDOMEN: Soft, nontender. Liver and spleen not palpable. Psychiatry: Alert and oriented times three. Mood and affect normal. Lower extremity: Dressing on both the right lower extremity and left lower extremity. INVESTIGATIONS: White count 2.5, hemoglobin 10.6, platelets 114. Potassium 4.0, BUN 16, creatinine 0.85. ASSESSMENT: 1. Acute bilateral lower extremity cellulitis more so on the right leg than the left leg, at the right leg above the knee in a patient who is immunosuppressed from chemotherapy. 2. Right adenocarcinoma of lung. The patient having received chemotherapy and radiation treatment. 3. Pancytopenia from chemotherapy. 4. Benign prostatic hypertrophy. 5. Obstructive sleep apnea uses CPAP machine. 6. Hepatitis C treated with interferon. 7. Paroxysmal atrial fibrillation. The patient is chronically on Eliquis. 8. Chronic congestive heart failure from systolic dysfunction, ejection fraction 45% from hypertensive heart disease. 9. Hyperlipidemia. 10.Depression, not otherwise specified. 11.Hard of hearing wears hearing aids. PLAN: Patient is on IV vancomycin, Silvadene topically. Dr. Koo was consulted. Care was discussed with the patient and . Questions were answered. MMODL / IJN: [id number] /
[2017-07-05] MEDS: clonazePAM 1 MG TAB PO SCH (20:51)
[2017-07-05] MEDS: FOLIC ACID 1 MG TAB PO SCH (20:51)
[2017-07-05] MEDS: FINASTERIDE 5 MG TAB PO SCH (20:52)
[2017-07-05] MEDS: TAMSULOSIN 0.4 MG CAP.ER.24H PO SCH (20:52)
[2017-07-05] MEDS: PRAVASTATIN SODIUM 80 MG TAB PO SCH (20:52)
[2017-07-06] MEDS: SODIUM CHLORIDE 0.9% 1,000 ML IV SCH ×2 (05:58→12:46)
[2017-07-06 07:35] VITALS: RESP 18
[2017-07-06 08:15] LABS: Anion Gap 5 mmol/L; Blood Urea Nitrogen 11 mg/dL (9-20); Calcium 8.1 mg/dL (8.4-10.2); Carbon Dioxide 25 mmol/L (22-30); Chloride 106 mmol/L (98-107); Glucose 106 mg/dL (74-99); Sodium 136 mmol/L (137-145)
[2017-07-06] MEDS: ATOMOXETINE HCL 25 MG PO SCH (08:51)
[2017-07-06] MEDS: GABAPENTIN 300 MG CAP PO SCH ×2 (08:51→16:17)
[2017-07-06] MEDS: APIXABAN 5 MG TAB PO SCH (08:52)
[2017-07-06] MEDS: ALPRAZolam 0.5 MG TAB PO SCH ×2 (08:52→16:17)
[2017-07-06] MEDS: METOPROLOL TARTRATE 50 MG TAB PO SCH (08:52)
[2017-07-06] MEDS: PANTOPRAZOLE 40 MG/10 ML VIAL IV SCH (08:52)
[2017-07-06] MEDS: VANCOMYCIN 2,000 MG in SODIUM CHLORIDE 0.9% 500 ML IVPB SCH (08:53)
[2017-07-06] MEDS ORDERED: POLYETHYLENE GLYCOL 3350 17 GM POWD.PACK PO SCH (09:00)
[2017-07-06] MEDS: LORATADINE 10 MG TAB PO SCH (09:16)
--- NOTE | 2017-07-06 12:02 | P.CONS ---
History of Present Illness - Reason for Consult Consult date: 07/06/17 bilateral lower extremity cellulitis - History of Present Illness This is a 66-year-old male patient known to ID service from a May admission for bilateral lower extremity cellulitis with past history significant for adenocarcinoma of the lung with metastatic disease to the bone diagnosed in 2016 status post carboplatin and Laurel followed by palliative radiation and maintained on Alimta. His last chemotherapy was June 24. He developed increasing redness and swelling bilaterally but mostly to the right lower extremity. He denies having any fever or chills. He has had decreased appetite but this has been ongoing. He does complain of feeling tired and weak. Patient presented to [facility] emergency center where he was found to be afebrile, neutropenic with white count of 2.5 and platelet of 114 and hemoglobin 10.6. Patient was admitted to the med-surg floor and started on vancomycin and Silvadene wraps. Bilateral lower extremity ultrasound negative for DVT. Blood cultures showing no growth at 24 hours. Review of Systems All systems: negative Constitutional: Reports fatigue, Reports lethargy, Reports poor appetite, Reports weakness, Denies chills, Denies fever Eyes: denies blurred vision, denies pain Ears, nose, mouth and throat: Denies headache, Denies sore throat Cardiovascular: Reports leg edema, Denies chest pain, Denies decreased exercise tolerance, Denies dyspnea on exertion, Denies edema, Denies lightheadedness, Denies shortness of breath, Denies syncope Respiratory: Denies cough, Denies cough with sputum, Denies dyspnea, Denies excessive sputum, Denies hemoptysis, Denies home oxygen Gastrointestinal: Denies abdominal pain, Denies diarrhea, Denies nausea, Denies vomiting Genitourinary: Denies dysuria Musculoskeletal: Denies myalgias Integumentary: Reports color changes, Reports darkening of skin, Reports wounds , Denies pruritus, Denies rash Neurological: Denies change in mentation, Denies confusion, Denies numbness, Denies weakness Psychiatric: Denies anxiety, Denies depression Endocrine: Denies fatigue, Denies weight change Past Medical History Past Medical History: Atrial Fibrillation, Cancer, Hyperlipidemia, Osteoarthritis (OA), Pneumonia, Prostate Disorder, Sleep Apnea/CPAP/BIPAP Additional Past Medical History / Comment(s): rt lung mass,vertigo/RECENT SINUS INFECTION , hepatitis c-RECEIVED TX WITH INTERFERON,INCIVEK, sleep apnea USES A CPAP MACHINE, BPH, sciatica, SHINGLES >20 YEARS AGO,WEARS [place] HEARING AIDS, LOWER BRIDGE.steroid use w/in 3 mos, chemo-on maintance dose -next due 06-26-17 History of Any Multi-Drug Resistant Organisms: None Reported Past Surgical History: Cholecystectomy, Orthopedic Surgery Additional Past Surgical History / Comment(s): sinus/SLEEP APNEA SX, RT KNEE ARTHROSCOPY AND MENISCAL TEAR REPAIR,LASIK EYE SX ,COLONOSCOPY, SKIN LESION REMOVED"PRECANCEROUS" Past Anesthesia/Blood Transfusion Reactions: No Reported Reaction, Motion Sickness Past Psychological History: ADD/ADHD, Depression, PTSD Additional Psychological History / Comment(s): PT LIVES AT HOME WITH HIS SARA, IS INDEPENDANT. Smoking Status: Former smoker Past Alcohol Use History: None Reported Additional Past Alcohol Use History / Comment(s): Patient was a smoker one pack per day for 15 years and quit in 1982. He uses marijuana 2-3 times per week. He is and lives at home with his . There are 3 dogs in the home. Patient is retired from [employer] in [place]. He was in the [employer] stationed in [place] and was exposed to agent orange. Past Drug Use History: Marijuana Additional Drug Use History / Comment(s): MEDICAL MARIJUANA-occ use - Past Family History Father Family Medical History: Hyperlipidemia, Myocardial Infarction (CT) Mother Additional Family Medical History / Comment(s): PT'S MOM FROM COMPLICATIONS FROM MS WHEN PT WAS 4 YEARS OLD. Medications and Allergies Home Medications Medication Instructions Recorded Confirmed Type RX: ALPRAZolam [Xanax] 0.5 mg PO TID 11/29/15 07/04/17 History RX: Finasteride [Proscar] 5 mg PO HS 11/29/15 07/04/17 History RX: Gabapentin 600 mg PO TID 11/29/15 07/04/17 History RX: Tamsulosin HCl [Flomax] 0.4 mg PO HS 11/29/15 07/04/17 History RX: clonazePAM [KlonoPIN] 1 mg PO HS 11/29/15 07/04/17 History RX: HYDROcodone/APAP 10-325MG 1 tab PO Q6H PRN 02/17/16 07/04/17 History [[place] 10-325] RX: Folic Acid 1 mg PO HS 12/17/16 07/04/17 History RX: Simethicone [Gas-X] 125 mg PO TID PRN 12/17/16 07/04/17 History RX: Apixaban [Eliquis] 5 mg PO BID tab 12/19/16 07/04/17 Rx RX: Metoprolol Tartrate [Lopressor] 50 mg PO BID #60 tab 12/19/16 07/04/17 Rx RX: Atomoxetine HCl [Strattera] 25 mg PO DAILY 06/11/17 07/04/17 History RX: Furosemide [Lasix] 20 mg PO BID PRN 06/11/17 07/04/17 History RX: Potassium Chloride ER [K-Dur 10 meq PO BID PRN 06/11/17 07/04/17 History 10] RX: Pravastatin Sodium [Pravachol] 80 mg PO HS 06/11/17 07/04/17 History RX: Cetirizine HCl [Zyrtec] 10 mg PO HS 07/04/17 07/04/17 History RX: Clindamycin [Cleocin] 300 mg PO Q6H #20 capsule 07/06/17 Rx RX: Polyethylene Glycol 3350 17 gm PO DAILY powd.pack 07/06/17 Rx [Miralax] RX: SILVER sulfADIAZINE CREAM 1 applic TOPICAL BID #1 applic 07/06/17 Rx [Silvadene Cream] Allergies Allergy/AdvReac Type Severity Reaction Status Date / Time telaprevir [From Incivek] Allergy Rash/Hives Verified 07/04/17 18:45 tetracycline Allergy Rash/Hives Verified 07/04/17 18:45 levofloxacin [From Levaquin] AdvReac Altered Verified 07/04/17 18:45 Mental Status Physical Exam Vitals: Vital Signs Temp Pulse Resp BP Pulse Ox 07/06/17 07:00 98.2 F 94 18 115/61 96 07/05/17 23:00 97.4 F L 111 H 16 107/64 92 L 07/05/17 16:00 81 18 07/05/17 15:00 98.4 F 81 18 117/70 96 Intake and Output 07/05/17 07/06/17 07/06/17 22:59 06:59 14:59 Intake Total 400 1100 Balance 400 1100 Intake: IV 400 600 Sodium Chloride 0.9% 1, 400 600 000 ml @ 100 mls/hr IV . Q10H MARTINEZ Rx#:[id number] Intake, IV Titration 500 Amount Vancomycin 2,000 mg In 500 Sodium Chloride 0.9% 500 ml @ 167 mls/hr IVPB Q12H MARTINEZ Rx#:[id number] Other: Voiding Method Toilet Toilet Weight 118 kg Gen: This is a 66-year-old male. He is sitting up in bed and appears to be in no acute distress. No respiratory distress is noted. HEENT: Head is atraumatic, normocephalic. Pupils equal, round. Sclerae is anicteric. Oral mucous membranes are moist. No thrush noted. NECK: Supple. No JVD. No lymphadenopathy. No thyromegaly. LUNGS: Clear to auscultation. No wheezes or rhonchi. No intercostal retractions. HEART: Regular rate and rhythm. No murmur. ABDOMEN: Soft. Bowel sounds are present. No masses. No tenderness. EXTREMITIES: 1+ pedal edema to the right leg and trace to the left. Dorsalis pedis is +1 bilaterally. There is erythema on the right leg from the ankle to below the knee. No open or draining wounds. There is mild erythema to the area on the left medial malleolus. No calf tenderness. NEUROLOGICAL: Patient is awake, alert and oriented x3. Cranial nerves 2 through 12 are grossly intact. Results Results: Laboratory Results WBC 2.5 k/uL (3.8-10.6) L 07/04/17 19:38 RBC 3.13 m/uL (4.30-5.90) L 07/04/17 19:38 Hgb 10.6 gm/dL (13.0-17.5) L 07/04/17 19:38 Hct 31.5 % (39.0-53.0) L 07/04/17 19:38 MCV 100.4 fL (80.0-100.0) H 07/04/17 19:38 MCH 33.8 pg (25.0-35.0) 07/04/17 19:38 MCHC 33.7 g/dL (31.0-37.0) 07/04/17 19:38 RDW 15.2 % (11.5-15.5) 07/04/17 19:38 Plt Count 114 k/uL (150-450) L 07/04/17 19:38 Neutrophils % 44 % 07/04/17 19:38 Lymphocytes % 43 % 07/04/17 19:38 Monocytes % 6 % 07/04/17 19:38 Eosinophils % 3 % 07/04/17 19:38 Basophils % 0 % 07/04/17 19:38 Neutrophils # 1.1 k/uL (1.3-7.7) L 07/04/17 19:38 Lymphocytes # 1.1 k/uL (1.0-4.8) 07/04/17 19:38 Monocytes # 0.2 k/uL (0-1.0) 07/04/17 19:38 Eosinophils # 0.1 k/uL (0-0.7) 07/04/17 19:38 Basophils # 0.0 k/uL (0-0.2) 07/04/17 19:38 Macrocytosis Slight 07/04/17 19:38 PT 10.4 sec (9.0-12.0) 07/04/17 19:38 INR 1.1 (<1.2) 07/04/17 19:38 APTT 38.7 sec (22.0-30.0) H 07/04/17 19:38 Sodium 136 mmol/L (137-145) L 07/06/17 07:10 Potassium 4.0 mmol/L (3.5-5.1) 07/06/17 07:10 Chloride 106 mmol/L (98-107) 07/06/17 07:10 Carbon Dioxide 25 mmol/L (22-30) 07/06/17 07:10 Anion Gap 5 mmol/L 07/06/17 07:10 BUN 11 mg/dL (9-20) 07/06/17 07:10 Creatinine 0.85 mg/dL (0.66-1.25) 07/06/17 07:10 Est GFR (MDRD) Af Amer >60 (>60 ml/min/1.73 sqM) 07/06/17 07:10 Est GFR (MDRD) Non-Af >60 (>60 ml/min/1.73 sqM) 01/08/18 07:10 Glucose 106 mg/dL (74-99) H 07/06/17 07:10 Plasma Lactic Acid Issa 0.9 mmol/L (0.7-2.0) 07/04/17 19:38 Calcium 8.1 mg/dL (8.4-10.2) L 07/06/17 07:10 Total Bilirubin 0.8 mg/dL (0.2-1.3) 07/04/17 19:38 AST 25 U/L (17-59) 07/04/17 19:38 ALT 46 U/L (21-72) 07/04/17 19:38 Alkaline Phosphatase 55 U/L (38-126) 07/04/17 19:38 Total Protein 7.1 g/dL (6.3-8.2) 07/04/17 19:38 Albumin 3.7 g/dL (3.5-5.0) 07/04/17 19:38 CBC & Chem 7: 07/04/17 19:38 07/06/17 07:10 Labs: Abnormal Lab Results - Last 24 Hours (Table) 07/06/17 Range/Units 07:10 Sodium 136 L (137-145) mmol/L Glucose 106 H (74-99) mg/dL Calcium 8.1 L (8.4-10.2) mg/dL Microbiology - Last 24 Hours (Table) 07/04/17 19:38 Blood Culture - Preliminary Blood No Growth after 24 hours Assessment and Plan Plan: This is a 66-year-old male patient who presented to the hospital with lower extremity cellulitis. Patient is currently on vancomycin and local wound care with Silvadene wraps and elevate on 2 pillows. Discharge antibiotics will be addressed. These will be continued. Patient also presents with pancytopenia status post chemotherapy for adenocarcinoma with metastatic disease to the ribs. Noted the patient does have history of atrial fibrillation on chronic eliquis. Continue supportive care. Further recommendations as patient presses. The above dictated assessment and findings were discussed with Dr. Koo. The impression and plan of care have been directed as dictated. Erika Talley nurse practitioner acting as scribe for Dr. Koo.
[2017-07-06 15:31] VITALS: BP 131/81; PULSE 84; TEMP 97.7
--- NOTE | 2017-07-06 19:24 | P.CON ---
Consult Note - . Consult date: 07/06/17 Assessment/Plan:: This is a 66-year-old male patient known to ID service from a May admission for bilateral lower extremity cellulitis with past history significant for adenocarcinoma of the lung with metastatic disease to the bone diagnosed in 2016 status post carboplatin and Laurel followed by palliative radiation and maintained on Alimta. His last chemotherapy was June 24. He developed increasing redness and swelling bilaterally but mostly to the right lower extremity. He denies having any fever or chills. He has had decreased appetite but this has been ongoing. He does complain of feeling tired and weak. Patient presented to [facility] emergency center where he was found to be afebrile, neutropenic with white count of 2.5 and platelet of 114 and hemoglobin 10.6. Patient was admitted to the med-surg floor and started on vancomycin and Silvadene wraps. Bilateral lower extremity ultrasound negative for DVT. Blood cultures showing no growth at 24 hours. Please see the consult note as per HSE MANAGER Mrs Erika Talley. Patient as above with complex medical issues now much improved, will discharge with silvadene with wraps and clindamycin. Follow up in office if needed. I agree with the evaluation assessment and plan as dictated by HSE MANAGER Mrs. Erika Talley.
[2017-07-07] MEDS ORDERED: VANCOMYCIN TROUGH DUE 1 EACH MISC MISCELLANE ONE (07:00)
--- NOTE | 2017-07-07 11:28 | DS ---
DISCHARGE SUMMARY FINAL DIAGNOSES: 1. Acute bilateral lower extremity cellulitis, right greater than the left, on the right leg above the knee, in a patient who is immunosuppressed from chemotherapy. 2. Adenocarcinoma of the lung. The patient has received chemo and radiation treatment. 3. Pancytopenia from chemotherapy. 4. Benign prostatic hypertrophy. 5. Obstructive sleep apnea, uses CPAP machine. 6. Hepatitis C, treated with interferon. 7. Paroxysmal atrial fibrillation, chronically on Eliquis. 8. Chronic congestive heart failure, systolic dysfunction, ejection fraction of 45%, hypertensive heart disease. 9. Hyperlipidemia. 10.Depression, not otherwise specified. 11.Hard of hearing. Wears hearing aids. HOSPITAL COURSE: This patient is getting chemotherapy for adenocarcinoma of the lung with prior cellulitis present, cellulitis of the right lower extremity more than the left. Received vancomycin and Silvadene to which he responded really well, greatly improved by the time of discharge. On examination, patient was afebrile. the redness was greatly improved. The patient is keen to go home. Diet was improving. CONSULTATION: Dr. Koo of Infectious Disease. DISCHARGE MEDICATIONS: 1. Xanax 0.5 p.o. t.i.d. 2. Proscar 5 mg p.o. at bedtime. 3. Neurontin 600 mg p.o. t.i.d. 4. Flomax 0.4 mg p.o. at bedtime. 5. Klonopin 1 mg p.o. at bedtime. 6. [place] 10 one tab every 6 hours p.r.n. 7. Folic acid 1 mg p.o. at bedtime. 8. Gas-X 125 p.o. t.i.d. p.r.n. 9. Eliquis 5 mg p.o. b.i.d. 10.Lopressor 25 mg p.o. b.i.d. 11.Straterra 25 mg p.o. daily. 12.Lasix 20 mg p.o. b.i.d. p.r.n. 13.Potassium 10 mEq p.o. b.i.d. p.r.n. 14.Pravachol 80 mg at bedtime. 15.Zetia 10 mg p.o. at bedtime. 16.Clindamycin 300 mg every 6, 20 capsules. 17.MiraLAX 17 g p.o. daily. 18.Silvadene cream topical b.i.d. for a week. FOLLOWUP: 1. Follow up with Dr. Viviana Argueta on July 10, 2017. 2. CBC in 3 to 5 days. EXAM: Lungs are clear. Cardiovascular, 1st and 2nd sounds normal. Redness in the lower extremity greatly improved. MMODL / IJN: [id number] /
== END 2017-07-06 16:30 | disposition home or self-care (01) | DRG 602 ==
LOC: EC 17:35 → 5MS5E 20:12
PROVIDERS: ADMIT Hospitalist; ATTEND Hospitalist
DX: L03.115 Cellulitis of right lower limb (principal); D61.810 Antineoplastic chemotherapy induced pancytopenia; C79.51 Secondary malignant neoplasm of bone; I11.0 Hypertensive heart disease with heart failure; I48.0 Paroxysmal atrial fibrillation; I50.22 Chronic systolic (congestive) heart failure; C34.11 Malignant neoplasm of upper lobe, right bronchus or lung; L03.116 Cellulitis of left lower limb; N40.0 Benign prostatic hyperplasia without lower urinary tract symptoms; G47.33 Obstructive sleep apnea (adult) (pediatric); B19.20 Unspecified viral hepatitis C without hepatic coma; E78.5 Hyperlipidemia, unspecified; F32.9 Major depressive disorder, single episode, unspecified; H91.90 Unspecified hearing loss, unspecified ear; T45.1X5A Adverse effect of antineoplastic and immunosuppressive drugs, initial encounter; M54.30 Sciatica, unspecified side; M19.91 Primary osteoarthritis, unspecified site; F90.9 Attention-deficit hyperactivity disorder, unspecified type; F43.10 Post-traumatic stress disorder, unspecified; Z79.01 Long term (current) use of anticoagulants; Z79.899 Other long term (current) drug therapy; Z86.19 Personal history of other infectious and parasitic diseases; Z90.49 Acquired absence of other specified parts of digestive tract; Z97.4 Presence of external hearing-aid; Z92.3 Personal history of irradiation; Z87.891 Personal history of nicotine dependence; Z87.01 Personal history of pneumonia (recurrent); Z88.1 Allergy status to other antibiotic agents; Z88.8 Allergy status to other drugs, medicaments and biological substances
CPT/HCPCS: 36415; 80048; 80053; 83605; 85025; 85610; 85730; 87040; 93970; 96361; 96365; 99285

== ENCOUNTER → 2017-07-04 | Outpatient (CLI) | payer OTHER, MEDICARE ==
--- NOTE | 2017-07-04 21:04 | PE ---
EXAMINATION TYPE: PET CT fusion skull to thigh DATE OF EXAM: 07/04/2017 COMPARISON: CTA chest December 18, 2016. PET CT December 06, 2016 and older studies. HISTORY: Lung cancer progress study. TECHNIQUE: Following the intravenous administration of 14.83 mCi of F-18 FDG, whole body images are performed from the skull base to the midthigh. Images are reviewed on the computer in the coronal, a xial, and sagittal planes. Reconstructed rotating images are created on independent workstation and reviewed on the computer. A noncontrast CT is performed in conjunction with the PET scan. SCAN: Subsequent Scan FINDINGS: SKULL BASE AND NECK: No suspicious hypermetabolic uptake is seen on current study. CHEST, MEDIASTINUM, AND HILAR REGION: There is persistent dense masslike consolidation medial aspect right upper lobe which is diminished in size as does not extend to the periphery on current study but more centrally consolidated or masslike abutting the mediastinum measuring 4.7 x 2.5 cm axial image 69. Mild increase hypermetabolic uptake with max SUV of 2.67. There is narrowing of right upper lobe bronchus that remains present. No new areas of abnormal hypermetabolic uptake are identified. There is interval resolution of small right pleural effusion noted. ABDOMEN AND PELVIS: No new areas of hypermetabolic uptake in the abdomen and pelvis are identified. OSSEOUS STRUCTURES: No new areas of abnormal hypermetabolic uptake are seen. There is stable sclerosis left posterior T6 rib without hypermetabolic uptake on axial image 83. Ther e is stable sclerotic focus posterior T5 vertebra just right of midline axial image 80 redemonstrated without hypermetabolic uptake. There is stable sclerosis and joint space loss distal right clavicle near axial image [address]: Some lobulated mucosal thickening posterior right maxillary sinus remains present inferiorl y. There is redemonstration of coiled right internal jugular Mediport catheter felt stable. Tip position is above SVC similar to prior. Small degree of right greater than left bilateral gynecomastia is redemonstrated felt stable. There is persistent mild cardiomegaly with tiny pericardial effusion felt stable anteriorly and infer iorly. There is coronary artery calcification is seen which is noted marker for coronary artery disea se redemonstrated. Cholecystectomy clips are redemonstrated. There is stable 3 mm calculus mid right kidney on axial image 150 versus vascular calcification. Normal-appearing appendix is incidentally noted from cecum. There are few scattered colonic diverticula redemonstrated. Scattered pelvic phleboliths redemonstrated. There is multilevel spurring in the thoracolumbar spine. There is facet arthropathy lower lumbar leve ls. There is hemangioma T10 vertebral body level right of midline axial image 120 redemonstrated. IMPRESSION: There is persistent masslike consolidation right upper lobe at area of prior neoplasm wit hout hypermetabolic uptake to suggest neoplastic recurrence. There are stable ametabolic sclerotic [place] lesions suspect treated metastatic disease. No new areas of suspicious hypermetabolic uptake are i dentified to suggest active recurrent neoplasm.
== END | disposition home or self-care (01) ==
LOC: RADPETMAIN 08:28
PROVIDERS: ATTEND Internal Medicine Hematology & Oncology
DX: C34.11 Malignant neoplasm of upper lobe, right bronchus or lung (principal); M89.9 Disorder of bone, unspecified
CPT/HCPCS: 78815; A9552

== ENCOUNTER → 2017-10-17 | Outpatient (CLI) | payer OTHER, MEDICARE ==
--- NOTE | 2017-10-17 18:55 | PE ---
EXAMINATION TYPE: PET CT fusion skull to thigh DATE OF EXAM: 10/17/2017 COMPARISON: Prior PET/CT July 04, 2017 and older studies HISTORY: Lung cancer progress study completed chemotherapy August 17, 2017. Completed radiation pinky atment May 2016. TECHNIQUE: Following the intravenous administration of 12.463 mCi of F-18 FDG, whole body images are performed from the skull base to the midthigh. Images are reviewed on the computer in the coronal, axial, and sagittal planes. Reconstructed rotating images are created on independent workstation and reviewed on the computer. A noncontrast CT is performed in conjunction with the PET scan. SCAN: Subsequent Scan FINDINGS: SKULL BASE AND NECK: No suspicious hypermetabolic uptake on current study. CHEST, MEDIASTINUM, AND HILAR REGION: There is persistent dense masslike consolidation medial aspect right upper lobe measuring 4.8 x 2.7 cm axial image 81 without abnormal hypermetabolic uptake not sig nificant change in size and appearance at area of original neoplasm consistent with treated neoplasm abutting the mediastinum. Narrowing of right upper lobe bronchus remains present. No new areas of hypermetabolic uptake are identified. ABDOMEN AND PELVIS: No new areas of hypermetabolic uptake are seen. Normal urinary excretion is redem onstrated. OSSEOUS STRUCTURES: No new areas of hypermetabolic uptake are present. OTHER CT: There is stable sclerosis medial posterior left sixth rib at area of residual neoplasm axia l image 99 current study. There is stable posterior sclerotic focus T5 vertebra axial image 94 just r ight of midline. There is persistent sclerosis distal right clavicle near axial image 62. There is redemonstration of right internal jugular Mediport catheter short of the SVC as there is serene e coiling noted similar to prior. Small degree of bilateral gynecomastia remains present, right greater than left. There is stable mild cardiomegaly with tiny pericardial effusion. There is coronary artery calcificat ion redemonstrated. Cystectomy clips are again seen. There is stable 3 mm calculus mid pole level right kidney axial image 161 versus focal vascular calci fication. Scattered colonic diverticula are redemonstrated. Normal-appearing appendix is seen from base of cecu m. Scattered pelvic phleboliths are seen. There is facet arthropathy lower lumbar levels. IMPRESSION: Findings consistent with treated neoplasm redemonstrated. No hypermetabolic uptake noted in the area of primary neoplasm medial right upper lobe on current study. No new areas of suspicious hypermetabolic uptake are seen to suggest active recurrent neoplasm.
== END | disposition home or self-care (01) ==
LOC: RADPETMAIN 16:05
PROVIDERS: ATTEND Internal Medicine Hematology & Oncology
DX: C34.11 Malignant neoplasm of upper lobe, right bronchus or lung (principal); Z92.21 Personal history of antineoplastic chemotherapy
CPT/HCPCS: 78815; A9552

== ENCOUNTER → 2018-04-17 | Outpatient (CLI) | payer OTHER, MEDICARE ==
--- NOTE | 2018-04-18 20:25 | PE ---
EXAMINATION TYPE: PET CT fusion skull to thigh DATE OF EXAM: 04/17/2018 CLINICAL HISTORY: 67-year-old male restaging right lung cancer initially diagnosed in 2016. Patient s tatus post chemotherapy and radiation completed in July 2017 and 2016, respectively. TECHNIQUE: Following the intravenous administration of 13.2 mCi of F-18 FDG, whole body images are performed from the skull base to the midthigh. Images are reviewed on the computer in the coronal, a xial, and sagittal planes. Reconstructed rotating images are created on independent workstation and reviewed on the computer. A localization and attenuation correction CT is performed in conjunction with the PET scan. Glucose level: 94 mg/dL CTDI: 5.33 mGy DLP: 536.63 mGy-cm COMPARISON: 10/17/2017 FINDINGS: PET: Physiologic FDG uptake in the neck. Redemonstrated masslike consolidation and volume loss along the medial right upper lobe measuring 5.3 x 2.3 cm versus 5.0 x 2.7 cm, previously. Allowing for differences in measurement technique, this is unchanged. There is minimal associated FDG uptake, Max SUV 1.9 versus 2.3, previously. Average liver SUV 2.2. There is focal moderate uptake at the anus, max SUV 4.5, suspected physiologic uptake. Degenerative uptake noted at the left shoulder and right sternoclavicular joint, max SUV 3.8. Mild, borderline moderate uptake at the right hip, max SUV 3.1 suggesting gluteal insertional tendino sis. Otherwise, physiologic FDG uptake within the body. Stable heterogeneous appearance distal right clavicle, slight sclerosis posterior left sixth rib and some scattered mild patchy sclerosis within the thoracic spine, T5 and T6 vertebral bodies. ATTENUATION CORRECTION CT: New moderate to severe wall mucosal thickening right maxillary sinus and mild lobulated mucosal thick ening medial left maxillary sinus. Mastoid air cells well pneumatized. No cervical lymphadenopathy. Right anterior chest wall injection port with catheter tip in the lower right brachiocephalic vein, s hort of the SVC due to coiling in the right IJV as seen previously. The heart is upper limits of normal in size without pericardial effusion. Coronary vessel calcificati ons are present. Aorta normal caliber with conventional arch vessel branching anatomy. Borderline siz ed caliber to the main right and left pulmonary arteries at 2.5 cm which may reflect underlying pulmo nary hypertension. No thoracic lymphadenopathy. [place] and dependent areas of atelectasis. Respirat ory motion at the lung bases. Trace right effusion was present previously as well. Cholecystectomy clips. Small anterior splenule is unchanged. No dilated small bowel, free fluid, or f ree air. Normal appendix. Scattered mild stool. No pericolonic inflammatory change. Bladder nondistended. Pelvic phleboliths. Prostate gland measures 3.8 cm wide. No abnormal fluid chiara ection in the pelvis or pelvic lymphadenopathy. Bones: Degenerative changes lower lumbar spine. Osteitis pubis. IMPRESSION: 1. Stable masslike consolidation and volume loss medial right upper lobe without any significant meta bolic activity. Findings compatible with site of treated disease. No evidence for recurrent or metast atic disease. 2. Focal moderate uptake at the anus likely physiologic activity. Correlate with patient's symptoms a nd physical exam/direct visualization as indicated. 3. The right-sided chest wall injection port catheter remains short of the SVC due to coiling in the right internal jugular vein. This finding is unchanged. 4. New moderate right maxillary sinusitis.
== END ==
LOC: RADPETMAIN 08:32
PROVIDERS: ATTEND Internal Medicine Hematology & Oncology
DX: C34.11 Malignant neoplasm of upper lobe, right bronchus or lung (principal); J32.0 Chronic maxillary sinusitis
CPT/HCPCS: 78815; A9552

== ENCOUNTER 2018-05-23 11:50 | Emergency (ER) | payer OTHER, MEDICARE ==
[2018-05-23 12:13] VITALS: RESP 18
[2018-05-23] MEDS ORDERED: SODIUM CHLORIDE 0.9% 1,000 ML IV STA (13:15)
[2018-05-23] MEDS ORDERED: diphenhydrAMINE 50 MG/ML 1 ML VIAL IVP STA (13:15)
--- NOTE | 2018-05-23 13:18 | ED ---
General Adult HPI - General Chief complaint: Headache Stated complaint: headache Source: patient, RN notes reviewed, old records reviewed Mode of arrival: wheelchair Limitations: no limitations - History of Present Illness Initial comments: 67-year-old male patient with past medical history including lung cancer, status post chemotherapy, extremity radiation, on xaralto for a fib presents to ED with 8 days of headache. Patient states that he has a long history of sinusitis, sinus headaches. Patient states that this headache feels similar. The headache is located in the frontal lobe, frontal sinus region. Patient states that the headache had a gradual onset, is a pressure situation. Patient denies thunderclap, worse headache of life. This began approximately 8 days ago. Patient denies any recent fall, head trauma. Patient was evaluated by his primary care physician approximately 3 days ago, scheduled to get a CT of his head this week. Patient presented to ED today for pain control and expedited evaluation. Systemic: Pt denies fatigue, myalgia, fever/chills, rash. Pt denies weakness, night sweats, weight loss. Neuro: Pt denies headache, visual disturbances, syncope or pre-syncope. HEENT: Pt denies ocular discharge or irritation, otalgia, rhinorrhea, pharyngitis or notable lymphadenopathy. Cardiopulmonary: Pt denies chest pain, SOB, heart palpitations, dyspnea on exertion. Abdominal/GI: Pt denies abdominal pain, n/v/d. : Pt denies dysuria, burning w/ urination, frequency/urgency. Denies new onset urinary or bowel incontinence. MSK: Pt denies myalgia, loss of strength or function in extremities. - Related Data Home Medications Medication Instructions Recorded Confirmed ALPRAZolam [Xanax] 0.5 mg PO TID 11/29/15 07/04/17 Finasteride [Proscar] 5 mg PO HS 11/29/15 07/04/17 Gabapentin 600 mg PO TID 11/29/15 07/04/17 Tamsulosin HCl [Flomax] 0.4 mg PO HS 11/29/15 07/04/17 clonazePAM [KlonoPIN] 1 mg PO HS 11/29/15 07/04/17 HYDROcodone/APAP 10-325MG [[place] 1 tab PO Q6H PRN 08/21/16 01/06/18 10-325] Folic Acid 1 mg PO HS 12/17/16 07/04/17 Simethicone [Gas-X] 125 mg PO TID PRN 12/17/16 07/04/17 Atomoxetine HCl [Strattera] 25 mg PO DAILY 06/11/17 07/04/17 Furosemide [Lasix] 20 mg PO BID PRN 06/11/17 07/04/17 Potassium Chloride ER [K-Dur 10] 10 meq PO BID PRN 06/11/17 07/04/17 Pravastatin Sodium [Pravachol] 80 mg PO HS 06/11/17 07/04/17 Cetirizine HCl [Zyrtec] 10 mg PO HS 07/04/17 07/04/17 Previous Rx's Medication Instructions Recorded Apixaban [Eliquis] 5 mg PO BID tab 12/19/16 Metoprolol Tartrate [Lopressor] 50 mg PO BID #60 tab 12/19/16 Clindamycin [Cleocin] 300 mg PO Q6H #20 capsule 07/06/17 Polyethylene Glycol 3350 [Miralax] 17 gm PO DAILY powd.pack 07/06/17 SILVER sulfADIAZINE CREAM 1 applic TOPICAL BID #1 applic 07/06/17 [Silvadene Cream] Amoxicillin/Potassium Clav 1 each PO Q12HR 7 Days #14 tab 05/23/18 [Augmentin 875-125 Tablet] Allergies Allergy/AdvReac Type Severity Reaction Status Date / Time telaprevir [From Incivek] Allergy Rash/Hives Verified 05/23/18 12:13 tetracycline Allergy Rash/Hives Verified 05/23/18 12:13 levofloxacin [From Levaquin] AdvReac Altered Verified 05/23/18 12:13 Mental Status Review of Systems ROS Statement: Those systems with pertinent positive or pertinent negative responses have been documented in the HPI. ROS Other: All systems not noted in ROS Statement are negative. Past Medical History Past Medical History: Atrial Fibrillation, Cancer, Hyperlipidemia, Osteoarthritis (OA), Pneumonia, Prostate Disorder, Sleep Apnea/CPAP/BIPAP Additional Past Medical History / Comment(s): rt lung mass,vertigo/RECENT SINUS INFECTION , hepatitis c-RECEIVED TX WITH INTERFERON,INCIVEK, sleep apnea USES A CPAP MACHINE, BPH, sciatica, SHINGLES >20 YEARS AGO,WEARS [place] HEARING AIDS, [place].steroid use w/in 3 mos, chemo-on maintance dose History of Any Multi-Drug Resistant Organisms: None Reported Past Surgical History: Cholecystectomy, Orthopedic Surgery Additional Past Surgical History / Comment(s): sinus/SLEEP APNEA SX, RT KNEE ARTHROSCOPY AND MENISCAL TEAR REPAIR,LASIK EYE SX ,COLONOSCOPY, SKIN LESION REMOVED"PRECANCEROUS" Past Anesthesia/Blood Transfusion Reactions: No Reported Reaction, Motion Sickness Past Psychological History: ADD/ADHD, Depression, PTSD Smoking Status: Former smoker Past Alcohol Use History: None Reported Past Drug Use History: Marijuana - Past Family History Father Family Medical History: Hyperlipidemia, Myocardial Infarction ([place]) Mother Additional Family Medical History / Comment(s): PT'S MOM FROM COMPLICATIONS FROM MS WHEN PT WAS 4 YEARS OLD. General Exam - General Exam Comments Initial Comments: Constitutional: NAD, AOX3, Pt has pleasant affect. HEENT: NC/AT, trachea midline, neck supple, no lymphadenopathy. Posterior pharynx non erythematous, without exudates. External ears appear normal, without discharge. Mucous membranes moist. Eyes PERRLA, EOM intact. There is no scleral icterus. No pallor noted. Cardiopulmonary: RRR, no murmurs, rubs or gallops, no JVD noted. Lungs CTAB in anterior and posterior ann. No peripheral edema. Abdominal exam: Abdomen soft and non-distended. Abdomen non-tender to palpation in all 4 quadrants. Bowel sounds active in LLQ. No hepatosplenomegaly. Neuro: CN II-XII intact. No cranial nerve deficit. Full active range of motion in upper and lower extremities. Full sensation in upper and lower extremities. Patient ambulatory. No temporal tenderness bilaterally. No nuchal rigidity, no cervical spinal tenderness. No mcgill sign no racoon eyes. Limitations: no limitations Course Vital Signs 05/23/18 05/23/18 12:09 14:32 Temperature 97.9 F 98.6 F Pulse Rate 79 65 Respiratory 18 18 Rate Blood Pressure 103/72 124/77 O2 Sat by Pulse 97 95 Oximetry Medical Decision Making - Medical Decision Making 67-year-old male patient presents with a day history of frontal headache. Patient states that this headache is similar to sinus headaches he has had in the past. Patient states that he has a long history of sinusitis, sinus headaches. The headache is located in the frontal lobe, frontal sinus region. Patient states that the headache had a gradual onset, is a pressure sensation. Patient denies thunderclap, worse headache of life. This began approximately 8 days ago. Patient denies emesis. Patient denies unilateral temporal tenderness. Physical exam of patient revealed a normal neurologic exam. Patient is no focal deficits. Cardiopulmonary abdominal exam were within normal limits. Patient's full active range of motion in upper and lower extremities, sensation intact. Imaging studies were conducted including a CTA of the patient's brain. Mild mucosal thickening of the maxillary sinus was demonstrated, no other abnormal findings. Laboratory investigations including a CBC, CMP, sedimentation rate were within normal limits. Patient had significant relief with headache cocktail given ED. Patient to be treated outpatient for acute sinusitis. Patient will follow-up with PCP in 1-2 days. Patient to return to ED if any new signs or symptoms develop including worsening headache, thunderclap headache, changes in vision,, n/v/d, or any other new symptoms. - Lab Data Result diagrams: 05/23/18 13:31 05/23/18 13:31 Lab Results 05/23/18 05/23/18 05/23/18 Range/Units 13:31 13:31 13:31 WBC 5.5 (3.8-10.6) k/uL RBC 4.34 (4.30-5.90) m/uL Hgb 13.7 (13.0-17.5) gm/dL Hct 39.2 (39.0-53.0) % MCV 90.3 (80.0-100.0) fL MCH 31.6 (25.0-35.0) pg MCHC 35.0 (31.0-37.0) g/dL RDW 12.6 (11.5-15.5) % Plt Count 163 (150-450) k/uL Neutrophils % 61 % Lymphocytes % 27 % Monocytes % 8 % Eosinophils % 2 % Basophils % 0 % Neutrophils # 3.4 (1.3-7.7) k/uL Lymphocytes # 1.5 (1.0-4.8) k/uL Monocytes # 0.4 (0-1.0) k/uL Eosinophils # 0.1 (0-0.7) k/uL Basophils # 0.0 (0-0.2) k/uL ESR 14 (0-15) mm/hr PT 10.3 (9.0-12.0) sec INR 1.0 (<1.2) APTT 25.7 (22.0-30.0) sec Sodium 141 (137-145) mmol/L Potassium 4.2 (3.5-5.1) mmol/L Chloride 106 (98-107) mmol/L Carbon Dioxide 27 (22-30) mmol/L Anion Gap 8 mmol/L BUN 23 H (9-20) mg/dL Creatinine 0.99 (0.66-1.25) mg/dL Est GFR (CKD-EPI)AfAm 89 (>60 ml/min/1.73 sqM) Est GFR (CKD-EPI)NonAf 77 (>60 ml/min/1.73 sqM) Glucose 141 H (74-99) mg/dL Calcium 9.4 (8.4-10.2) mg/dL Total Bilirubin 0.6 (0.2-1.3) mg/dL AST 22 (17-59) U/L ALT 22 (21-72) U/L Alkaline Phosphatase 41 (38-126) U/L Total Protein 6.7 (6.3-8.2) g/dL Albumin 3.8 (3.5-5.0) g/dL Disposition Clinical Impression: Sinusitis Disposition: HOME SELF-CARE Condition: Good Instructions: Acute Headache (ED), Sinusitis (ED) Prescriptions: Amoxicillin/Potassium Clav [Augmentin 875-125 Tablet] 1 each PO Q12HR 7 Days # 14 tab Is patient prescribed a controlled substance at d/c from ED?: No Referrals: Viviana Argueta DO [Primary Care Provider] - 1-2 days Time of Disposition: 16:40
[2018-05-23 13:45] LABS: Basophils % (A) 0 %; Eosinophils # (A) 0.1 k/uL (0-0.7); Eosinophils % (A) 2 %; HCT 39.2 % (39.0-53.0); HGB 13.7 gm/dL (13.0-17.5); Lymphocytes # (A) 1.5 k/uL (1.0-4.8); Lymphocytes % (A) 27 %; MCH 31.6 pg (25.0-35.0); MCV 90.3 fL (80.0-100.0); Mean Platelet Volume 8.1; Monocytes # (A) 0.4 k/uL (0-1.0); Monocytes % (A) 8 %; Neutrophils # (A) 3.4 k/uL (1.3-7.7); Neutrophils % (A) 61 %; Platelet Count 163 k/uL (150-450); RBC 4.34 m/uL (4.30-5.90); RDW 12.6 % (11.5-15.5); WBC 5.5 k/uL (3.8-10.6)
[2018-05-23 13:55] LABS: Albumin 3.8 g/dL (3.5-5.0); Calcium 9.4 mg/dL (8.4-10.2); Potassium 4.2 mmol/L (3.5-5.1); Total Bilirubin 0.6 mg/dL (0.2-1.3); Total Protein 6.7 g/dL (6.3-8.2)
[2018-05-23 14:07] LABS: Partial Thromboplastin Time 25.7 sec (22.0-30.0); Prothrombin Time 10.3 sec (9.0-12.0)
[2018-05-23 14:30] LABS: Erythrocyte Sedimentation Rate 14 mm/hr (0-15)
[2018-05-23] MEDS ORDERED: ACETAMINOPHEN TAB 325 MG TAB PO STA (15:31)
--- NOTE | 2018-05-23 15:43 | CT ---
EXAMINATION TYPE: CT angio head DATE OF EXAM: 05/23/2018 HISTORY: headache. hx of lung ca COMPARISON: NONE CT DLP: 736.5 mGycm. Automated Exposure Control for Dose Reduction was Utilized. TECHNIQUE: CTA scan of the neck is performed with IV Contrast, patient injected with 100 mL of Isovu e 370, axial images are obtained, coronal and sagittal reformatted images are reviewed. Three-D recon structed images are created on an independent workstation and reviewed. FINDINGS: Carotid/Vascular Structures: There is no hemodynamically significant stenosis within the visualized c ervical portions or intracranial portions of the internal carotid arteries, vertebral arteries, basil ar arteries, or major intracranial vasculature. No aneurysm is identified. Posterior communicating ar teries appear diminutive but do appear present. [place] appears intact. No dissection or foc al stenosis is seen. No arterial venous malformation is identified There is mild ventricular prominence that is symmetric with peripheral sulcal prominence compatible w ith mild age-related volume loss. There is mild mucosal thickening of the right maxillary sinus. Visu alized remaining paranasal sinuses and mastoid air cells are well aerated. IMPRESSION: No evidence of intracranial vascular occlusion, dissection or aneurysm.
[2018-05-23] MEDS ORDERED: METOCLOPRAMIDE 5 MG/ML 2 ML VIAL IVP STA (15:47)
[2018-05-23] MEDS ORDERED: diphenhydrAMINE 25 MG CAP PO STA (16:17)
[2018-05-23 16:57] VITALS: BP 124/87; PULSE 87; TEMP 98.4
== END 2018-05-23 16:57 | disposition home or self-care (01) ==
LOC: EC 11:50
DX: J01.90 Acute sinusitis, unspecified (principal); I48.91 Unspecified atrial fibrillation; E78.5 Hyperlipidemia, unspecified; N40.0 Benign prostatic hyperplasia without lower urinary tract symptoms; G47.30 Sleep apnea, unspecified; F90.9 Attention-deficit hyperactivity disorder, unspecified type; Z87.891 Personal history of nicotine dependence; Z88.1 Allergy status to other antibiotic agents; Z88.8 Allergy status to other drugs, medicaments and biological substances; Z79.01 Long term (current) use of anticoagulants; Z79.899 Other long term (current) drug therapy; Z99.89 Dependence on other enabling machines and devices; Z97.4 Presence of external hearing-aid; Z85.118 Personal history of other malignant neoplasm of bronchus and lung; Z92.21 Personal history of antineoplastic chemotherapy; Z92.3 Personal history of irradiation
CPT/HCPCS: 36415; 80053; 85652; 85025; 85610; 85730; 70496; 99284; 96374; 96375; 96361 ×2; J1200; J2765; Q9967

== ENCOUNTER → 2018-11-06 | Outpatient (CLI) | payer OTHER, MEDICARE ==
--- NOTE | 2018-11-09 08:42 | PE ---
Nuclear medicine PET/CT HISTORY: Lung carcinoma, subsequent Patient received 13.2 mCi F-18 FDG intravenously in delayed scanning was performed from the skull bas e to the mid thighs. An attenuation correction and localization CT scan also performed. Correlation to prior nuclear medicine PET/CT 04/17/2018 neck and CHEST: There is no evident cervical adenopathy. Right pectoral port is present, there is a r ight jugular central venous catheter extending to the right innominate vein level with coiling as pre viously described. The right upper lobe mass does not show associated hypermetabolic uptake and is es sentially stable in size, SUV only 1.8. There is no pleural or pericardial effusion. Coronary artery calcifications are present. ABDOMEN: Patient is post cholecystectomy. No evident retroperitoneal adenopathy or adrenal mass. No s uspicious hypermetabolic uptake. Nonobstructive calculus present in the mid to lower pole the right [place]. The urinary bladder is not distended and shows wall thickening. Prostate may be enlarged and s hows associated calcification. No pelvic adenopathy or free fluid. No suspicious hypermetabolic uptak e. Osseous structures: Question abnormal focus of metabolic activity involving the mid diaphyseal right clavicle. SUV is 3.4. IMPRESSION: There is hypermetabolic uptake within the right clavicle region as described, an interval finding.
== END | disposition home or self-care (01) ==
LOC: RADPETMAIN 11:58
PROVIDERS: ATTEND Internal Medicine Hematology & Oncology
DX: C34.11 Malignant neoplasm of upper lobe, right bronchus or lung (principal); R93.7 Abnormal findings on diagnostic imaging of other parts of musculoskeletal system; Z92.21 Personal history of antineoplastic chemotherapy
CPT/HCPCS: 78815; A9552

== ENCOUNTER → 2018-11-10 | Outpatient (CLI) | payer OTHER, MEDICARE ==
--- NOTE | 2018-11-10 17:27 | MR ---
EXAMINATION TYPE: MR clavicle RT wo/w con DATE OF EXAM: 11/10/2018 COMPARISON: PET/CT 4 days ago. HISTORY: Lung ca, abnormal PET, rt clavicle pain CONTRAST: Standard multiplanar, multisequence MRI departmental protocol utilizing 10 mL intravenous Gadavist ga dolinium contrast. FINDINGS: Corresponding to the area PET/CT concern there is low dense lesion or area with enhancement centered middle one third to distal one third of the right clavicle nearly 2 acromioclavicular joint . There is subtle cortical disruption along superior aspect and coronal image 17. There is surroundin g enhancement and/or edema felt present. I favor acute fracture, correlate clinically for recent trau ma. Single metastatic deposit with pathologic fracture would be felt less likely but not excluded. Ac romioclavicular joint is maintained without displacement. Narrowing is seen. No obvious adjacent soft tissue mass. IMPRESSION: Suspect acute minimally displaced fracture centered middle one third right clavicle with bone marrow edema extending through distal one third of right clavicle with adjacent inflammatory or edematous change. A pathologic fracture from single metastatic lesion felt less likely but not entire ly excluded. Strict clinical correlation advised.
== END | disposition home or self-care (01) ==
LOC: RADMRIMAIN 15:28
PROVIDERS: ATTEND Internal Medicine Hematology & Oncology
DX: C34.11 Malignant neoplasm of upper lobe, right bronchus or lung (principal); M25.519 Pain in unspecified shoulder; R93.7 Abnormal findings on diagnostic imaging of other parts of musculoskeletal system
CPT/HCPCS: 71552; A9585

== ENCOUNTER → 2019-04-23 | Outpatient (CLI) | payer OTHER, MEDICARE ==
--- NOTE | 2019-04-25 07:03 | PE ---
EXAMINATION TYPE: PET CT fusion skull to thigh DATE OF EXAM: 04/23/2019 COMPARISON: CTA 12/18/2016 Prior PET/CT: 11/06/2018 HISTORY: Lung cancer TECHNIQUE: Following the intravenous administration of 10.9 mCi of F-18 FDG, whole body images are p erformed from the skull base to the midthigh. Images are reviewed on the computer in the coronal, ax ial, and sagittal planes. Reconstructed rotating images are created on independent workstation and r eviewed on the computer. A localization and attenuation correction CT is performed in conjunction w ith the PET scan. DLP: 512.96 mGycm SCAN: Subsequent Blood glucose: 98 mg/dL Average Mediastinum SUV: 2.14 Average Liver SUV: 2.19 FINDINGS: NECK: No abnormal uptake THORAX: No abnormal uptake. Previous uptake at the medial right mid diaphyseal clavicle is less inten se than comparison. Current SUV of 2.16, image 63. No suspicious uptake in the superior right apex ma ss. Liver SUV is 1.8. ABDOMEN: No abnormal uptake PELVIS: No abnormal uptake OSSEOUS STRUCTURES: Uptake within the clavicles diminished. LOCALIZATION CT: Medial right apical mass currently measures 6.3 x 2.3 cm. This is diminished in size from comparison. COMPARISON: 1. Suspicious uptake within the chest is not evident. 2. There is diminished radiotracer at the mid clavicular region, diminished from comparison. IMPRESSION: 1. No suspicious changes suggest recurrent or new metastatic disease.
== END | disposition home or self-care (01) ==
LOC: RADPETMAIN 11:35
PROVIDERS: ATTEND Internal Medicine Hematology & Oncology
DX: C34.11 Malignant neoplasm of upper lobe, right bronchus or lung (principal); R93.89 Abnormal findings on diagnostic imaging of other specified body structures; Z92.21 Personal history of antineoplastic chemotherapy
CPT/HCPCS: 78815; A9552

== ENCOUNTER → 2019-07-11 | Outpatient (CLI) | payer OTHER, MEDICARE ==
--- NOTE | 2019-07-11 10:43 | CT ---
EXAMINATION TYPE: CT brain wo con DATE OF EXAM: 07/11/2019 HISTORY: Headache for about a month. No known injury. CT DLP: 1116 mGycm. Automated Exposure Control for Dose Reduction was Utilized. TECHNIQUE: CT scan of the head is performed without contrast. COMPARISON: CTA head May 23, 2018. FINDINGS: There is no acute intracranial hemorrhage or midline shift identified. There is diffuse v entricular and sulcal prominence consistent with diffuse age-related cerebral atrophy. There is low- attenuation in the periventricular white matter consistent with chronic small vessel ischemic change. Moderate to severe lobulated mucosal thickening right maxillary sinus is present with more mild muco thomas thickening noted in left maxillary sinus. Surgically treated ostiomeatal complexes patent bilate rally on coronal images. Globes are intact. IMPRESSION: No acute intracranial hemorrhage or midline shift. There is mild to moderate diffuse ag e-related cerebral atrophy and chronic small vessel ischemic change redemonstrated. Moderate to maria l re chronic right maxillary paranasal sinus disease more prominent from 2018 study
--- NOTE | 2019-07-11 11:39 | FL ---
EXAMINATION TYPE: FL barium swallow w video DATE OF EXAM: 07/11/2019 MODIFIED SWALLOW / DEGLUTITION STUDY CLINICAL HISTORY: Dysphagia. History of lung cancer. TECHNIQUE: Deglutition study is performed utilizing thin liquid barium, honey and nectar thick liqui d barium, barium thick pudding, and barium coated cracker. Total 1.18 minutes of fluoroscopic time. 0 spot images saved to PACS. COMPARISON: None. FINDINGS: The oral and pharyngeal phases show satisfactory initiation and propagation with all modali ties tested. Satisfactory mastication is seen with solid modalities tested. There is no evidence of penetration or aspiration with any modality tested. One episode of mild to moderate pharyngeal residu al appreciated with solid modality. IMPRESSION: No penetration or aspiration observed. Please refer to speech therapist notes for furthe r details if necessary.
== END | disposition home or self-care (01) ==
LOC: RADCTMAIN 10:05
PROVIDERS: ATTEND Otolaryngology
DX: G31.89 Other specified degenerative diseases of nervous system (principal); R90.89 Other abnormal findings on diagnostic imaging of central nervous system; R13.10 Dysphagia, unspecified; R51 Headache; Z88.1 Allergy status to other antibiotic agents
CPT/HCPCS: 70450; 74230

== ENCOUNTER → 2019-12-15 | Outpatient (CLI) | payer OTHER, MEDICARE ==
[2019-12-16 00:45] LABS: African American GFR (CKD) 87.4 (60.0-200.0); Non-African American GFR(CKD) 75.4 (60.0-200.0)
== END | disposition home or self-care (01) ==
LOC: LABWHC1 13:38
PROVIDERS: ATTEND Otolaryngology
DX: J38.01 Paralysis of vocal cords and larynx, unilateral (principal)
CPT/HCPCS: 36415; 82565; 84520

== ENCOUNTER → 2019-12-16 | Outpatient (CLI) | payer OTHER, MEDICARE ==
--- NOTE | 2019-12-18 18:41 | CT ---
EXAMINATION TYPE: CT neck chest w con DATE OF EXAM: 12/16/2019 COMPARISON: PET CT 04/23/2019 HISTORY: 69-year-old male J38.01, vocal cord paralysis. History of lung cancer TECHNIQUE: Contiguous axial scanning of the neck and chest performed with IV Contrast, patient inject ed with 100 mL of Isovue 300. Coronal/sagittal reconstructions performed. CT DLP: 785.9 mGycm Automated exposure control for dose reduction was used. FINDINGS: NECK: Visualized intracranial structures, orbits and globes, mastoid air cells appear clear. Mild mucosal t hickening scattered throughout the ethmoid air cells and floor of the right maxillary sinus. The nasopharynx and oropharynx are clear. There is asymmetric medialization of the right vocal fold. Subglottic structures otherwise show no gr oss abnormality. There is 6 mm mural based nodularity along the right lateral trachea below the thoracic inlet, suspec t adherent mucoid debris. Epiglottis and prevertebral soft tissues within normal limits. Abnormally enlarged 1.9 cm right supraclavicular lymph node. No additional cervical lymphadenopathy seen. Right anterior chest wall injection port with IJ access. The catheter remains looped once within the internal jugular vein before coursing inferiorly. This is unchanged from the 04/23/2019 PET/CT. Parotid, submandibular glands and thyroid glands are satisfactory. There is some soft tissue thickening asymmetric along the visualized distal right clavicle with sligh t permeative lucency. CHEST: Heart normal size with trace anterior basilar pericardial fluid. Scattered mild coronary artery calci fications are present. Aorta normal caliber with conventional branching anatomy. No thoracic lymphadenopathy by CT size criteria. Mild bilateral gynecomastia. Stable thickened band of opacity extending from the right suprahilar region into the right upper lobe measuring 2.2 cm thick. 6 mm subpleural pulmonary nodule superior segment left lower lobe is nonspecific, this could even rep resent an area of nodular atelectasis. 4 mm subpleural peripheral right basilar pulmonary nodule, axial image 38 not clearly seen previously . Some mild dependent atelectasis and strandy bibasilar atelectasis. Mild centrilobular emphysema. No consolidation or pleural effusion. Visualized upper abdomen shows cholecystectomy clips and an anterior splenule. Bones: There is a subtle permeative lucency within the visualized distal right clavicle is not includ ed on the CT chest portion of the exam. IMPRESSION: 1. MEDIALIZATION OF THE RIGHT VOCAL FOLD SUGGESTIVE OF INFEROLATERAL VOCAL FOLD PARALYSIS. 2. ABNORMALLY ENLARGED 1.9 CM RIGHT SUPRACLAVICULAR LYMPH NODE CONCERNING FOR METASTATIC DISEASE. 3. SUBTLE SOFT TISSUE THICKENING AROUND THE DISTAL RIGHT CLAVICLE WITH SUBTLE PERMEATIVE LUCENCY HERE . INFECTION AND NEOPLASTIC INVOLVEMENT ARE CONSIDERATIONS. THIS REGION IS ONLY PARTIALLY VISUALIZED. 4. STABLE THICKENED OPACITY RIGHT HILAR LEVEL EXTENDING UP INTO THE RIGHT UPPER LOBE SUGGESTING PRIOR TREATED DISEASE. 5. A COUPLE PULMONARY NODULES MEASURING UP TO 6 MM ARE NONSPECIFIC BUT NOT CLEARLY SEEN PREVIOUSLY. A TTENTION ON FOLLOW-UP TO EXCLUDE METASTATIC NODULES. 6. 6 MM MURAL BASED NODULARITY ALONG THE RIGHT LATERAL TRACHEAL WALL JUST BELOW THE THORACIC INLET L EVEL, SUSPECT ADHERENT MUCOID DEBRIS RATHER THAN A MUCOSAL LESION.
== END | disposition home or self-care (01) ==
LOC: RADCTMAIN 17:38
PROVIDERS: ATTEND Otolaryngology
DX: R59.9 Enlarged lymph nodes, unspecified (principal); M79.9 Soft tissue disorder, unspecified; J98.4 Other disorders of lung; R91.8 Other nonspecific abnormal finding of lung field; J38.01 Paralysis of vocal cords and larynx, unilateral
CPT/HCPCS: 70491; 71260; Q9967; 36415; 82565; 84520

== ENCOUNTER 2019-12-27 13:08 | Day surgery (SDC) | payer OTHER, MEDICARE ==
[2019-12-27 13:35] VITALS: RESP 18; TEMP 98
[2019-12-27 14:51] VITALS: BP 113/74; PULSE 78
--- NOTE | 2019-12-27 16:49 | US ---
EXAMINATION TYPE: US biopsy lymph node DATE OF EXAM: 12/27/2019 HISTORY: Supraclavicular adenopathy right neck. FINDINGS: Maximal barrier technique was utilized. Hand hygiene achieved with soap and water and alco hol-based hand rub. The skin overlying a suitable path to the patient's abnormal node in the right lane praclavicular location was localized with ultrasound and the overlying skin prepped and draped. Ultr asound was utilized with sterile technique. Lidocaine was used for local anesthesia. A skin noble wa s made with a scalpel. An 18-gauge needle was advanced under direct ultrasound guidance and core spe cimen obtained of the node. Specimen submitted in formalin to Pathology. Following the procedure, he mostasis achieved and the patient is discharged in stable condition without complication. IMPRESSION:STATUS POST ULTRASOUND GUIDED CORE BIOPSY OF RIGHT SUPRACLAVICULAR ADENOPATHY, PATHOLOGY I S PENDING. THIS PROCEDURE IS PERFORMED BY THE UNDERSIGNED.
== END 2019-12-27 14:59 | disposition home or self-care (01) ==
LOC: RADPROMAIN 13:08
PROVIDERS: ATTEND Otolaryngology
DX: C77.1 Secondary and unspecified malignant neoplasm of intrathoracic lymph nodes (principal); C34.90 Malignant neoplasm of unspecified part of unspecified bronchus or lung; R59.0 Localized enlarged lymph nodes; Z88.1 Allergy status to other antibiotic agents; Z79.01 Long term (current) use of anticoagulants
CPT/HCPCS: 38505; 76942; 88305; 88341; 88342

== ENCOUNTER 2020-01-01 08:39 | Observation (INO) | payer OTHER, MEDICARE ==
[2020-01-01] MEDS ORDERED: HYDROmorphone 1 MG/ML 1 ML SYRINGE IVP STA ×2 (09:05→11:50)
[2020-01-01] MEDS ORDERED: ONDANSETRON 4 MG/2 ML VIAL IVP STA (09:05)
[2020-01-01] MEDS ORDERED: SODIUM CHLORIDE 0.9% 1,000 ML IV STA (09:05)
--- NOTE | 2020-01-01 09:13 | ED ---
General Adult HPI - General Chief complaint: Weakness Stated complaint: weight loss/weakness Time Seen by Provider: 01/01/20 08:45 Source: patient, family, RN notes reviewed, old records reviewed Mode of arrival: wheelchair Limitations: no limitations - History of Present Illness Initial comments: This is a 69-year-old male who presents emergency Department with a past medical history significant for lung cancer 4 years ago. Patient has multiple problems currently and recently had lymph node biopsy to try to rule out metastatic recurrence. Patient comes in today complaining of abdominal pain which just started recently. Patient denies any vomiting but states she's very nauseated. Patient denies any diarrhea. Patient denies any chest pain palpitations difficulty breathing shortness of breath. Patient has chronic leg pain which is already being investigated. Patient also has dysphasia since April and that continues this time. Patient also has significant weight loss. Patient is also having difficulty walking and inferior falling. - Related Data Home Medications Medication Instructions Recorded Confirmed ALPRAZolam [Xanax] 0.5 mg PO BID 11/29/15 12/27/19 Finasteride [Proscar] 5 mg PO HS 11/29/15 12/27/19 Gabapentin 600 mg PO 0600,1400 11/29/15 12/27/19 Tamsulosin HCl [Flomax] 0.4 mg PO 1400 11/29/15 12/27/19 clonazePAM [KlonoPIN] 1 mg PO HS 11/29/15 12/27/19 HYDROcodone/APAP 10-325MG [Kiester 1 tab PO BID 02/17/16 12/27/19 10-325] Simethicone [Gas-X] 125 mg PO TID PRN 12/17/16 12/27/19 Atomoxetine HCl [Strattera] 25 mg PO DAILY 06/11/17 12/27/19 Furosemide [Lasix] 20 mg PO BID PRN 06/11/17 12/27/19 Potassium Chloride ER [K-Dur 10] 10 meq PO BID PRN 06/11/17 12/27/19 Pravastatin Sodium [Pravachol] 80 mg PO HS 06/11/17 12/27/19 ALPRAZolam [Xanax] 1 mg PO 1400 12/23/19 12/27/19 Gabapentin 800 mg PO HS 12/23/19 12/27/19 Metoprolol Tartrate [Lopressor] 25 mg PO BID 12/23/19 12/27/19 Prochlorperazine [Compazine] 10 mg PO Q6H PRN 12/23/19 12/27/19 Previous Rx's Medication Instructions Recorded Apixaban [Eliquis] 5 mg PO BID tab 12/19/16 Polyethylene Glycol 3350 [Miralax] 17 gm PO DAILY powd.pack 07/06/17 Amoxicillin/Potassium Clav 1 each PO Q12HR 7 Days #14 tab 05/23/18 [Augmentin 875-125 Tablet] Allergies Allergy/AdvReac Type Severity Reaction Status Date / Time telaprevir [From Incivek] Allergy Rash/Hives Verified 01/01/20 08:45 tetracycline Allergy Rash/Hives Verified 01/01/20 08:45 levofloxacin [From Levaquin] AdvReac Altered Verified 01/01/20 08:45 Mental Status Review of Systems ROS Statement: Those systems with pertinent positive or pertinent negative responses have been documented in the HPI. ROS Other: All systems not noted in ROS Statement are negative. Past Medical History Past Medical History: Atrial Fibrillation, Cancer, Hyperlipidemia, Osteoarthritis (OA), Pneumonia, Prostate Disorder, Sleep Apnea/CPAP/BIPAP Additional Past Medical History / Comment(s): rt lung mass with bone mets, had c hemo and radiation,vertigo/sinus infections , hepatitis c-RECEIVED TX WITH INTERFERON,INCIVEK, sleep apnea USES A CPAP MACHINE, BPH, sciatica, SHINGLES >20 YEARS AGO,WEARS [place] HEARING AIDS,[place], issues with ambulating, cellulitis in the past in bilateral lower extremities,left sided vocal chord paralysis with difficulty speaking and swallowing and right clavicular enlarged lymph node History of Any Multi-Drug Resistant Organisms: None Reported Past Surgical History: Cholecystectomy, Orthopedic Surgery Additional Past Surgical History / Comment(s): sinus/SLEEP APNEA SX, RT KNEE ARTHROSCOPY AND MENISCAL TEAR REPAIR,LASIK EYE SX ,COLONOSCOPY, SKIN LESION REMOVED"PRECANCEROUS", lumbar epidural for bulging discs, Past Anesthesia/Blood Transfusion Reactions: Motion Sickness Additional Past Anesthesia/Blood Transfusion Reaction / Comment(s): no previous blood transfusion Past Psychological History: ADD/ADHD, Anxiety, Depression, PTSD Smoking Status: Former smoker Past Alcohol Use History: None Reported Past Drug Use History: Marijuana - Past Family History Father Family Medical History: Hyperlipidemia, Myocardial Infarction (IA) Mother Additional Family Medical History / Comment(s): PT'S MOM FROM COMPLICATIONS FROM MS WHEN PT WAS 4 YEARS OLD. General Exam - General Exam Comments Initial Comments: GENERAL: Patient is well-developed and well-nourished. Patient is nontoxic and well- hydrated and is in mild distress. ENT: Neck is soft and supple. No significant lymphadenopathy is noted. Oropharynx is clear. Moist mucous membranes. Neck has full range of motion without eliciting any pain. EYES: The sclera were anicteric and conjunctiva were pink and moist. Extraocular movements were intact and pupils were equal round and reactive to light. Eyelids were unremarkable. PULMONARY: Unlabored respirations. Good breath sounds bilaterally. No audible rales rhonchi or wheezing was noted. CARDIOVASCULAR: There is a regular rate and rhythm without any murmurs gallops or rubs. ABDOMEN: Soft and nontender with normal bowel sounds. Patient states his abdomen hurts but me pressing on it does not seem to be making any worse. SKIN: Skin is clear with no lesions or rashes and otherwise unremarkable. NEUROLOGIC: Patient is alert and oriented x3. Cranial nerves II through XII are grossly intact. Motor and sensory are also intact. Normal speech, volume and content. Symmetrical smile. MUSCULOSKELETAL: Normal extremities with adequate strength and full range of motion. No lower extremity swelling or edema. No calf tenderness. LYMPHATICS: No significant lymphadenopathy is noted PSYCHIATRIC: Normal psychiatric evaluation. Limitations: no limitations Course Vital Signs 01/01/20 01/01/20 01/01/20 08:42 09:33 10:46 Temperature 98.0 F Pulse Rate 110 H 83 82 Respiratory 18 16 16 Rate Blood Pressure 145/84 124/82 106/85 O2 Sat by Pulse 96 95 99 Oximetry Medical Decision Making - Medical Decision Making EKG shows sinus rhythm with occasional PVCs at 94 bpm OR interval 140 QRS 70 QT interval 350 QTC is 447. Patient's EKG shows no ST segment elevation or depression. CT of the abdomen shows a 4.3 cm renal mass. I spoke with the depression agreed to admit the patient admitted the patient wrote admitting orders. - Lab Data Result diagrams: 01/01/20 09:19 01/01/20 09:19 Lab Results 01/01/20 01/01/20 01/01/20 Range/Units 09:19 09:19 09:19 WBC 6.1 (3.8-10.6) k/uL RBC 4.30 (4.30-5.90) m/uL Hgb 13.3 (13.0-17.5) gm/dL Hct 39.3 (39.0-53.0) % MCV 91.5 (80.0-100.0) fL MCH 30.9 (25.0-35.0) pg MCHC 33.8 (31.0-37.0) g/dL RDW 12.0 (11.5-15.5) % Plt Count 208 (150-450) k/uL Neutrophils % 80 % Lymphocytes % 11 % Monocytes % 5 % Eosinophils % 2 % Basophils % 0 % Neutrophils # 4.9 (1.3-7.7) k/uL Lymphocytes # 0.7 L (1.0-4.8) k/uL Monocytes # 0.3 (0-1.0) k/uL Eosinophils # 0.1 (0-0.7) k/uL Basophils # 0.0 (0-0.2) k/uL PT 10.5 (9.0-12.0) sec INR 1.0 (<1.2) APTT 53.6 H (22.0-30.0) sec Sodium 138 (137-145) mmol/L Potassium 4.1 (3.5-5.1) mmol/L Chloride 101 (98-107) mmol/L Carbon Dioxide 25 (22-30) mmol/L Anion Gap 12 mmol/L BUN 15 (9-20) mg/dL Creatinine 0.90 (0.66-1.25) mg/dL Est GFR (CKD-EPI)AfAm >90 (>60 ml/min/1.73 sqM) Est GFR (CKD-EPI)NonAf 86 (>60 ml/min/1.73 sqM) Glucose 132 H (74-99) mg/dL Plasma Lactic Acid Issa (0.7-2.0) mmol/L Calcium 9.5 (8.4-10.2) mg/dL Magnesium 2.3 (1.6-2.3) mg/dL Total Bilirubin 0.9 (0.2-1.3) mg/dL AST 22 (17-59) U/L ALT 17 (4-49) U/L Alkaline Phosphatase 64 (38-126) U/L Troponin I (0.000-0.034) ng/mL Total Protein 7.3 (6.3-8.2) g/dL Albumin 4.4 (3.5-5.0) g/dL 01/01/20 01/01/20 Range/Units 09:19 09:19 WBC (3.8-10.6) k/uL RBC (4.30-5.90) m/uL Hgb (13.0-17.5) gm/dL Hct (39.0-53.0) % MCV (80.0-100.0) fL MCH (25.0-35.0) pg MCHC (31.0-37.0) g/dL RDW (11.5-15.5) % Plt Count (150-450) k/uL Neutrophils % % Lymphocytes % % Monocytes % % Eosinophils % % Basophils % % Neutrophils # (1.3-7.7) k/uL Lymphocytes # (1.0-4.8) k/uL Monocytes # (0-1.0) k/uL Eosinophils # (0-0.7) k/uL Basophils # (0-0.2) k/uL PT (9.0-12.0) sec INR (<1.2) APTT (22.0-30.0) sec Sodium (137-145) mmol/L Potassium (3.5-5.1) mmol/L Chloride (98-107) mmol/L Carbon Dioxide (22-30) mmol/L Anion Gap mmol/L BUN (9-20) mg/dL Creatinine (0.66-1.25) mg/dL Est GFR (CKD-EPI)AfAm (>60 ml/min/1.73 sqM) Est GFR (CKD-EPI)NonAf (>60 ml/min/1.73 sqM) Glucose (74-99) mg/dL Plasma Lactic Acid Issa 1.0 (0.7-2.0) mmol/L Calcium (8.4-10.2) mg/dL Magnesium (1.6-2.3) mg/dL Total Bilirubin (0.2-1.3) mg/dL AST (17-59) U/L ALT (4-49) U/L Alkaline Phosphatase (38-126) U/L Troponin I <0.012 (0.000-0.034) ng/mL Total Protein (6.3-8.2) g/dL Albumin (3.5-5.0) g/dL Disposition Clinical Impression: Renal mass, Weakness, Weight loss, Chronic pain Disposition: ADMITTED IP TO THIS HOSP Referrals: Viviana Argueta DO [Primary Care Provider] - 1-2 days Time of Disposition: 10:55
[2020-01-01 09:25] LABS: Basophils % (A) 0 %; Eosinophils # (A) 0.1 k/uL (0-0.7); Eosinophils % (A) 2 %; HCT 39.3 % (39.0-53.0); HGB 13.3 gm/dL (13.0-17.5); Lymphocytes # (A) 0.7 k/uL (1.0-4.8); Lymphocytes % (A) 11 %; MCH 30.9 pg (25.0-35.0); MCHC 33.8 g/dL (31.0-37.0); MCV 91.5 fL (80.0-100.0); Mean Platelet Volume 7.9; Monocytes # (A) 0.3 k/uL (0-1.0); Monocytes % (A) 5 %; Neutrophils # (A) 4.9 k/uL (1.3-7.7); Neutrophils % (A) 80 %; Platelet Count 208 k/uL (150-450); WBC 6.1 k/uL (3.8-10.6)
[2020-01-01 09:35] LABS: Partial Thromboplastin Time 53.6 sec (22.0-30.0); Prothrombin Time 10.5 sec (9.0-12.0)
[2020-01-01 09:36] LABS: ALT 17 U/L (4-49); AST 22 U/L (17-59); African American GFR (CKD) >90 (>60 ml/min/1.73 sqM); Albumin 4.4 g/dL (3.5-5.0); Alkaline Phosphatase 64 U/L (38-126); Anion Gap 12 mmol/L; Blood Urea Nitrogen 15 mg/dL (9-20); Calcium 9.5 mg/dL (8.4-10.2); Carbon Dioxide 25 mmol/L (22-30); Chloride 101 mmol/L (98-107); Glucose 132 mg/dL (74-99); Magnesium 2.3 mg/dL (1.6-2.3); Non-African American GFR(CKD) 86 (>60 ml/min/1.73 sqM); Potassium 4.1 mmol/L (3.5-5.1); Sodium 138 mmol/L (137-145); Total Bilirubin 0.9 mg/dL (0.2-1.3); Total Protein 7.3 g/dL (6.3-8.2)
--- NOTE | 2020-01-01 10:22 | CT ---
EXAMINATION TYPE: CT abdomen pelvis w con DATE OF EXAM: 01/01/2020 COMPARISON: 04/23/2019 HISTORY: Umbilical pain with history of metastatic lung cancer CT DLP: 1165 mGycm Automated exposure control for dose reduction was used. CONTRAST: CT scan of the abdomen pelvis is performed with IV Contrast, patient injected with 100 mL of Isovue 3 00. FINDINGS- LUNG BASES- No significant abnormality is appreciated. LIVER/GB-mild intrahepatic biliary ductal dilation.. Postcholecystectomy changes noted PANCREAS- No gross abnormality is seen. SPLEEN- No gross abnormality is seen. Sensory spleen noted. ADRENALS-7 mm fatty attenuation involving the left adrenal gland likely related to incidental adenoma . KIDNEYS/BLADDER- there is a 4.3 cm mass involving the left kidney highly suspicious for malignancy. T here is adjacent adenopathy in the left periaortic region measuring 1.5 cm in short axis suspicious f or metastatic adenopathy. Multiple other retroaortic lymph nodes are seen the largest measuring measu ring short axis of 2 cm. There is a nonobstructing 3 mm right renal calculus. . BOWEL-nonspecific gas pattern. Normal appendix. LYMPH NODES-there is pathologic adenopathy in the left periaortic retroperitoneum with the largest no de measuring short axis of 2 cm. This is seen immediately in the vicinity of the left renal mass.. OSSEOUS STRUCTURES-hypertrophic change of the spine. Vertebral body hemangioma lower thoracic spine.. OTHER- atherosclerotic change aorta and its side branches. IMPRESSION- 1. There is a 4.3 cm mass involving the left kidney with adjacent adenopathy suspicious for malignanc y. 2. Nonspecific gas pattern no evidence of obstruction. Appendix normal. 3. Nonobstructing 3 mm right renal calculus
[2020-01-01] MEDS ORDERED: SODIUM CHLORIDE 0.9% 1,000 ML IV ONE (11:00)
[2020-01-01 11:28] LABS: Appearance,Urine Clear (Clear); Bilirubin,Urine Negative (Negative); Blood,Urine Negative (Negative); Color,Urine Yellow; Glucose,Urine (UA) Negative (Negative); Ketones,Urine Negative (Negative); Leukocyte Esterase,Urine Negative (Negative); Nitrite,Urine Negative (Negative); Protein,Urine Negative (Negative); Specific Gravity,Urine 1.011 (1.001-1.035); Urobilinogen,Urine <2.0 mg/dL (<2.0)
[2020-01-01] MEDS ORDERED: PROCHLORPERAZINE 10 MG TAB PO PRN (14:00)
[2020-01-01] MEDS ORDERED: HYDROcodone/APAP 7.5-325MG 1 EACH TAB PO PRN (14:04)
[2020-01-01] MEDS: ALPRAZolam 1 MG TAB PO SCH (15:06)
[2020-01-01] MEDS: GABAPENTIN 300 MG CAP PO SCH (15:06)
[2020-01-01] MEDS: DEXTROSE 5%-0.45% NACL 1,000 ML IV SCH (15:06)
--- NOTE | 2020-01-01 16:42 | P.HPIM ---
History of Present Illness H&P Date: 01/01/20 Chief Complaint: Multiple symptoms History of presenting complaint: This is a very pleasant 69-year-old patient of Dr. Viviana Argueta. Chronic stable medical conditions include atrial fibrillation, hyperlipidemia, osteoarthritis, BPH, history of hepatitis C that was treated, obstructive sleep apnea uses CPAP machine, BPH, sciatica, bilateral hearing aids,. Patient was diagnosed with lung cancer morbid metastatic cyst and he received chemoradiation treatment. Oncologist is Dr. Quezada. Because of side effects chemotherapy was held. She is having progressive pain in the lower back. Seen by Dr. Valadez. Did have a MRI. Results of which are not available. Patient's at the bedside. Patient is his multitudinous symptoms. Having increasing pain in both the lower legs. Diagnosed with peripheral neuropathy for which she's Neurontin. 2 days ago started on Duragesic patch. Not really helping much. Also taking Percocet. Patient is feeling rather weak and tired and also been falling at home to able to still get to the bathroom. Appetite has been poor. Because of left vocal cord paralysis patient's current hoarseness. Also could've dysphagia and has had had a modified barium swallow been seen by physical and speech therapist. Patient also been having urine retention and a Farooq catheter was placed in the ER. Review of systems: GEN.: Loss of appetite weight loss EYES: None HEENT: Decreased hearing] NECK: None RESPIRATORY: None CARDIOVASCULAR: None GASTROINTESTINAL: [Constipation GENITOURINARY: Urinary incontinence MUSCULOSKELETAL: Bone pains LYMPHATICS: None HEMATOLOGICAL: None PSYCHIATRY: None NEUROLOGICAL: Muscle weakness, peripheral neuropathy. Past medical history to include: Atrial fibrillation, lung cancer with metastatic cyst received chemotherapy and radiation stopped because of side effects, hyperlipidemia, osteoarthritis, BPH, obstructive sleep apnea uses CPAP, hepatitis C received treatment with interferon, sciatica, shingles over 20 years ago, bilateral hearing aids, left- sided vocal cord paralysis, Social history: , patient smoked a pack a day for 15 years stopped in 1982. Uses marijuana 2 or 3 times a week. 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 And was exposed to Agent [place]. Physical examination: VITAL SIGNS: 97.5, 84, 16, 129/83, patient's orthostatic 100% on room air GENERAL: BMI 25, laying in bed, awake. EYES: Pupils equal. Conjunctiva normal. HEENT: External appearance of nose and ears normal, oral cavity grossly normal. NECK: JVD not raised; masses not palpable. HEART: First and second heart sounds are normal; no edema. LUNGS: Respiratory rate normal; clear to auscultation. ABDOMEN: Soft, nontender, liver spleen not palpable, no masses palpable. PSYCH: Alert and oriented x3; mood and affect slightly anxiousl. NEUROLOGICAL: Cranial nerves grossly intact; no facial asymmetry, power and sensation grossly intact. LYMPHATICS: No lymph nodes palpable in the axilla and neck INVESTIGATIONS, reviewed in the clinical context: White count 6.1 hemoglobin 13.3 platelets is 208 potassium 4.1 creatinine 0.9 UA negative EKG tracing personally reviewed by me-normal sinus rhythm Computed tomography scan of the abdomen and pelvis-4.3 cm mass of the left kidney and just sent periaortic lymphadenopathy, nonobstructive 3 mm right renal calculi Computed tomography scan of the neck and chest-December 17-supraclavicular lymph node +1.9 cm, subtle soft tissue thickening around the distal right clavicle, some carpal pulmonary nodules Assessment: -Lung cancer metastatic disease that was treated with radiation treatment and chemotherapy in the past but Dr. Quezada. I do not see any recent PET scan and the exact status of the disease process of unknown -Peripheral neuropathy secondary likely underlying malignancy -Medical asthenia due to underlying malignancy -Gait dysfunction patient is be continued falls -Vocal cord paralysis causing hoarseness -Dysphagia patient is to follow-up with speech therapist -Chronic urinary retention due to BPH now patient is a Farooq catheter Plan: Consultations made to Dr. Quezada to determine the staging of the disease and in terms of treatment plan. Patient will be continued on his Duragesic patch and Percocet. Hold of Dilaudid. This was discussed in length with the patient and the . IV fluids to be given. Accu-Cheks will be followed. 4 precautions. Activity prophylaxis. Care was discussed with the patient. Questions were answered. Prognosis guarded. Past Medical History Past Medical History: Atrial Fibrillation, Cancer, Hyperlipidemia, Osteoarthritis (OA), Pneumonia, Prostate Disorder, Sleep Apnea/CPAP/BIPAP Additional Past Medical History / Comment(s): rt lung mass with bone mets, had chemo and radiation,vertigo/sinus infections , hepatitis c-RECEIVED TX WITH INTERFERON,INCIVEK, sleep apnea USES A CPAP MACHINE, BPH, sciatica, SHINGLES >20 YEARS AGO,WEARS [place] HEARING AIDS,LOWER BRIDGE, issues with ambulating, cellulitis in the past in bilateral lower extremities,left sided vocal chord paralysis with difficulty speaking and swallowing and right clavicular enlarged lymph node History of Any Multi-Drug Resistant Organisms: None Reported Past Surgical History: Cholecystectomy, Orthopedic Surgery Additional Past Surgical History / Comment(s): sinus/SLEEP APNEA SX, RT KNEE ARTHROSCOPY AND MENISCAL TEAR REPAIR,LASIK EYE SX ,COLONOSCOPY, SKIN LESION REMOVED"PRECANCEROUS", lumbar epidural for bulging discs, Past Anesthesia/Blood Transfusion Reactions: Motion Sickness Additional Past Anesthesia/Blood Transfusion Reaction / Comment(s): no previous blood transfusion Past Psychological History: ADD/ADHD, Anxiety, Depression, PTSD Additional Psychological History / Comment(s): PT LIVES AT HOME WITH HIS SARA, IS INDEPENDANT. Smoking Status: Former smoker Past Alcohol Use History: None Reported Additional Past Alcohol Use History / Comment(s): Patient was a smoker one pack per day for 15 years and quit in 1982. He uses marijuana 2-3 times per week. He is and lives at home with his . There are 2 dogs in the home. 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 Past Drug Use History: Marijuana Additional Drug Use History / Comment(s): MEDICAL MARIJUANA-occ use - Past Family History Father Family Medical History: Hyperlipidemia, Myocardial Infarction ([place]) Mother Additional Family Medical History / Comment(s): PT'S MOM FROM COMPLICATIONS FROM MS WHEN PT WAS 4 YEARS OLD. Medications and Allergies Home Medications Medication Instructions Recorded Confirmed Type Finasteride [Proscar] 5 mg PO DAILY 11/29/15 01/01/20 History Gabapentin 600 mg PO BID@0600,1400 11/29/15 01/01/20 History Tamsulosin HCl [Flomax] 0.4 mg PO DAILY 11/29/15 01/01/20 History clonazePAM [KlonoPIN] 1 mg PO HS 11/29/15 01/01/20 History Simethicone [Gas-X] 125 mg PO TID PRN 12/17/16 01/01/20 History Apixaban [Eliquis] 5 mg PO BID tab 12/19/16 01/01/20 Rx Atomoxetine HCl [Strattera] 25 mg PO DAILY 06/11/17 01/01/20 History Pravastatin Sodium [Pravachol] 80 mg PO DAILY 06/11/17 01/01/20 History ALPRAZolam [Xanax] 1 mg PO DAILY@1400 12/23/19 01/01/20 History Gabapentin 800 mg PO HS 12/23/19 01/01/20 History Metoprolol Tartrate [Lopressor] 25 mg PO BID 12/23/19 01/01/20 History Prochlorperazine [Compazine] 10 mg PO Q6H PRN 12/23/19 01/01/20 History ALPRAZolam [Xanax] 0.5 mg PO BID@0600,2100 01/01/20 01/01/20 History Cetirizine HCl 10 mg PO DAILY 01/01/20 01/01/20 History Polyethylene Glycol 3350 [Miralax] 17 gm PO DAILY PRN 01/01/20 01/01/20 History fentaNYL 12MCG/HR PATCH [Duragesic 1 patch TRANSDERM Q48H 01/01/20 01/01/20 History 12MCG/HR] Allergies Allergy/AdvReac Type Severity Reaction Status Date / Time telaprevir [From Incivek] Allergy Rash/Hives Verified 01/01/20 13:50 tetracycline Allergy Rash/Hives Verified 01/01/20 13:50 levofloxacin [From Levaquin] AdvReac Altered Verified 01/01/20 13:50 Mental Status Physical Exam Vitals: Vital Signs Temp Pulse Pulse Pulse Pulse Resp BP 01/01/20 13:08 97.5 F L 84 90 80 01/01/20 11:45 79 16 103/67 01/01/20 10:46 82 16 106/85 01/01/20 09:33 83 16 124/82 01/01/20 08:42 98.0 F 110 H 18 145/84 BP BP BP Pulse Ox 01/01/20 13:08 129/83 99/66 130/88 100 01/01/20 11:45 99 01/01/20 10:46 99 01/01/20 09:33 95 01/01/20 08:42 96 Intake and Output 01/01/20 01/01/20 01/01/20 06:59 14:59 22:59 Output Total 700 Balance -700 Output: Urine 700 Other: Voiding Method Indwelling Catheter Weight 88.451 kg Results CBC & Chem 7: 01/01/20 09:19 01/01/20 09:19 Labs: Abnormal Lab Results - Last 24 Hours (Table) 01/01/20 01/01/20 01/01/20 Range/Units 09:19 09:19 09:19 Lymphocytes # 0.7 L (1.0-4.8) k/uL APTT 53.6 H (22.0-30.0) sec Glucose 132 H (74-99) mg/dL Thrombosis Risk Factor Assmnt - Choose All That Apply Each Risk Factor Represents 2 Points: Age 61-74 years, Patient confined to bed Thrombosis Risk Factor Assessment Total Risk Factor Score: 4 Thrombosis Risk Factor Assessment Level: Moderate Risk
[2020-01-01] MEDS: GABAPENTIN 400 MG CAP PO SCH (20:14)
[2020-01-01] MEDS: APIXABAN 5 MG TAB PO SCH (20:14)
[2020-01-01] MEDS: clonazePAM 1 MG TAB PO SCH (20:14)
[2020-01-01] MEDS: ALPRAZolam 0.5 MG TAB PO SCH (20:14)
[2020-01-01] MEDS: METOPROLOL TARTRATE 25 MG TAB PO SCH (20:14)
[2020-01-02] MEDS: DEXTROSE 5%-0.45% NACL 1,000 ML IV SCH ×2 (02:34→15:00)
[2020-01-02] MEDS: HYDROcodone/APAP 10-325MG 1 EACH TAB PO PRN ×3 (03:25→15:00)
[2020-01-02] MEDS: ALPRAZolam 0.5 MG TAB PO SCH ×2 (06:10→20:23)
[2020-01-02] MEDS: GABAPENTIN 300 MG CAP PO SCH ×2 (06:10→13:49)
[2020-01-02] MEDS: APIXABAN 5 MG TAB PO SCH ×2 (08:38→20:23)
[2020-01-02] MEDS: METOPROLOL TARTRATE 25 MG TAB PO SCH ×2 (08:39→20:23)
[2020-01-02] MEDS: FINASTERIDE 5 MG TAB PO SCH (08:39)
[2020-01-02] MEDS: LORATADINE 10 MG TAB PO SCH (08:39)
[2020-01-02] MEDS: PSYLLIUM HUSK 100% 6 GM PACKET PO SCH (08:40)
[2020-01-02] MEDS: PRAVASTATIN SODIUM 80 MG TAB PO SCH (08:40)
[2020-01-02] MEDS: ATOMOXETINE HCL 25 MG PO SCH (08:45)
[2020-01-02] MEDS ORDERED: TAMSULOSIN 0.4 MG CAP.ER.24H PO SCH (09:00)
[2020-01-02 12:01] VITALS: BMI 25.0
[2020-01-02] MEDS: ALPRAZolam 1 MG TAB PO SCH (13:49)
[2020-01-02] MEDS: ONDANSETRON 4 MG/2 ML VIAL IVP PRN (16:37)
[2020-01-02] MEDS: clonazePAM 1 MG TAB PO SCH (20:23)
[2020-01-02] MEDS: GABAPENTIN 400 MG CAP PO SCH (20:23)
--- NOTE | 2020-01-02 22:03 | P.CONS ---
History of Present Illness - Reason for Consult Consult date: 01/02/20 Hx: Lung Cancer Requesting physician: Castro Luu - Chief Complaint Recurrent falls and LE pain - History of Present Illness Mr. Rubio is a pleasant patient well known to our practice, primary oncologist Dr. Jamari Quezada. He was initially seen in 2016 with L chest wall pain X 2-3 weeks, no abnormality found on CXR, CT Scan of chest revealed 5X3 cm RUL mass suspecious for bronchogenic carcinoma. He was seen by Dr Cruz, had navigational bronchoscopy and Clemente needle Bx on 12/12/15 revealing Adenocarcinoma. PET Scan revealed SUV of 7 at RUL mass, no mediastinal involvment, but found to have a small lesion at L 6th/7th rib with SUV of 7, as well as, R shoulder lesion as well. Was seen by Dr Hoffmann CTS > recommended anjana-adjuvant Chemotherapy with possible resection only if systemic disease control possible. Denied anorexia or weight loss. MRI of brain negative. 02/08/16: C/O increasing "burning" pain in Left upper back (Known to have expansile met to L six rib). Tolerated 1st cycle of Carboplatnum/Alimta well. Active, no weight loss. Avastin added to cycle 2. 02/2016 - 11/2016 - Good performance and quality of life, fully active. 12/25/16: Was admitted to [facility] with A-Fib with RVR > Started on Eliquis. Echocardiogram with preserved LVEF 02/18/17: Feels Ok, Tolerating maintenance Alimta well, continues to use Eliquis without complications. 04/24/17: maintenance Chemotherapy well (Alimta). 07/14/17: Had severe lower ext cellulitis and admitted to hospital > seen by Dr Koo, completed course of PO Clindamycin today, R leg still erythematous. He is C/O severe fatigue and lack of stamina. 10/14/17: C/O L sided chest pain X 1 week > in same area and same kind of pain present at Dx and proven to be metastatic disease to bone. 11/09/18:C/O pain over proximal R Clavicle. PET Scan is + in R Clavicle (SUV 3.4) 04/13/19: C/O bilateral knee pain. Had Fx or R Clavicle, ? Pathologic > SBRT given. He feels Ok overall, C/O increasing anxiety, he is known to tave PTSD ([place] 05/17/19: Feels well, fully active, PET Scan negative 11/15/19: C/O dysphagia (radiation-induced), tired, having lower back pain (Followed by Dr Valadez). Overall he has continued to do well with his known metastatic lung cancer. He has managed to control his different stages of disease, symptoms while maintaining quality of life. Included in his history hyperlipidemia, osteoarthritis, BPH, history of hepatitis C that was treated, obstructive sleep apnea uses CPAP machine, BPH, sciatica, bilateral hearing aids,. Recently he started to complain of progressive pain in the lower back. Seen by Dr. Valadez. Did have a MRI which we will obtain from [place]. Continued treatment for peripheral neuropathy for which she's Neurontin. 2 days ago started on Durag esic patch. Not really helping much. Also taking Percocet. Patient is feeling rather weak and tired and also been falling at home to able to still get to the bathroom. Appetite has been poor. Recent evaluation by speech therapy concluded left vocal cord paralysis patient's current hoarseness. THis has made recent PO intake more difficult. He also has had difficulty with urine retention and a Farooq catheter was placed in the ER. His last staging scans in 05/2019 - showed stable without new evidence of disease. Although recently due to increased dysphagia a CT Chest and neck was performed revealing a new supraclavicular 1.9cm LN. THis was biopsied and revealed consistent with metastatic adenocarcinoma. On admission a CT of his abdomen and pelvis was performed and revealing a new renal mass 4.3cm, concerning for malignancy. It is not clear if this is a second priamry or metastatic lesion. Maybe related to current symptoms of retention and LE weakness. Review of Systems A 14 point review of systems assessed and completed and all negative except HPI Past Medical History Past Medical History: Atrial Fibrillation, Cancer, Hyperlipidemia, Osteoarthritis (OA), Pneumonia, Prostate Disorder, Sleep Apnea/CPAP/BIPAP Additional Past Medical History / Comment(s): rt lung mass with bone mets, had chemo and radiation,vertigo/sinus infections , hepatitis c-RECEIVED TX WITH INTERFERON,INCIVEK, sleep apnea USES A CPAP MACHINE, BPH, sciatica, SHINGLES >20 YEARS AGO,WEARS [place] HEARING AIDS,LOWER BRIDGE, issues with ambulating, cellulitis in the past in bilateral lower extremities,left sided vocal chord paralysis with difficulty speaking and swallowing and right clavicular enlarged lymph node History of Any Multi-Drug Resistant Organisms: None Reported Past Surgical History: Cholecystectomy, Orthopedic Surgery Additional Past Surgical History / Comment(s): sinus/SLEEP APNEA SX, RT KNEE ARTHROSCOPY AND MENISCAL TEAR REPAIR,LASIK EYE SX ,COLONOSCOPY, SKIN LESION REMOVED"PRECANCEROUS", lumbar epidural for bulging discs, Past Anesthesia/Blood Transfusion Reactions: Motion Sickness Additional Past Anesthesia/Blood Transfusion Reaction / Comm: no previous blood transfusion Past Psychological History: ADD/ADHD, Anxiety, Depression, PTSD Additional Psychological History / Comment(s): PT LIVES AT HOME WITH HIS SARA, IS INDEPENDANT. Smoking Status: Former smoker Past Alcohol Use History: None Reported Additional Past Alcohol Use History / Comment(s): Patient was a smoker one pack per day for 15 years and quit in 1982. He uses marijuana 2-3 times per week. He is and lives at home with his . There are 2 dogs in the home. Patient is retired from [employer] in [employer]. 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 Past Drug Use History: Marijuana Additional Drug Use History / Comment(s): MEDICAL MARIJUANA-occ use - Past Family History Father Family Medical History: Hyperlipidemia, Myocardial Infarction ([place]) Mother Additional Family Medical History / Comment(s): PT'S MOM FROM COMPLICATIONS FROM MS WHEN PT WAS 4 YEARS OLD. Medications and Allergies Home Medications Medication Instructions Recorded Confirmed Type Finasteride [Proscar] 5 mg PO DAILY 11/29/15 01/01/20 History Gabapentin 600 mg PO BID@0600,1400 11/29/15 01/01/20 History Tamsulosin HCl [Flomax] 0.4 mg PO DAILY 11/29/15 01/01/20 History clonazePAM [KlonoPIN] 1 mg PO HS 11/29/15 01/01/20 History Simethicone [Gas-X] 125 mg PO TID PRN 12/17/16 01/01/20 History Apixaban [Eliquis] 5 mg PO BID tab 12/19/16 01/01/20 Rx Atomoxetine HCl [Strattera] 25 mg PO DAILY 06/11/17 01/01/20 History Pravastatin Sodium [Pravachol] 80 mg PO DAILY 06/11/17 01/01/20 History ALPRAZolam [Xanax] 1 mg PO DAILY@1400 12/23/19 01/01/20 History Gabapentin 800 mg PO HS 12/23/19 01/01/20 History Metoprolol Tartrate [Lopressor] 25 mg PO BID 12/23/19 01/01/20 History Prochlorperazine [Compazine] 10 mg PO Q6H PRN 12/23/19 01/01/20 History ALPRAZolam [Xanax] 0.5 mg PO BID@0600,2100 01/01/20 01/01/20 History Cetirizine HCl 10 mg PO DAILY 01/01/20 01/01/20 History Polyethylene Glycol 3350 [Miralax] 17 gm PO DAILY PRN 01/01/20 01/01/20 History fentaNYL 12MCG/HR PATCH [Duragesic 1 patch TRANSDERM Q48H 01/01/20 01/01/20 History 12MCG/HR] Allergies Allergy/AdvReac Type Severity Reaction Status Date / Time telaprevir [From Incivek] Allergy Rash/Hives Verified 01/01/20 13:50 tetracycline Allergy Rash/Hives Verified 01/01/20 13:50 levofloxacin [From Levaquin] AdvReac Altered Verified 01/01/20 13:50 Mental Status Physical Exam Vitals: Vital Signs Temp Pulse Pulse Resp BP BP BP 01/02/20 12:55 98.2 F 65 18 110/70 01/02/20 04:30 98.1 F 71 14 105/65 01/01/20 20:20 97.9 F 87 20 130/80 Pulse Ox 01/02/20 12:55 95 01/02/20 04:30 94 L 01/01/20 20:20 99 Intake and Output 01/01/20 01/02/20 01/02/20 22:59 06:59 14:59 Intake Total 1380 840 600 Output Total 600 1100 1350 Balance 780 -260 -750 Intake: Intake, IV Titration 300 600 600 Amount Dextrose 5%-0.45% NaCl 1, 300 600 600 000 ml @ 75 mls/hr IV . [id number] MARTINEZ Rx#:[id number] Oral 1080 240 Output: Urine 600 1100 1350 Other: Voiding Method Indwelling Catheter Indwelling Catheter Indwelling Catheter # Bowel Movements 1 Weight 88.451 kg - Constitutional General appearance: cooperative, no acute distress - EENT Eyes: EOMI, PERRLA, poor dentition ENT: normal oropharynx - Neck Neck: lymphadenopathy - Respiratory Respiratory: bilateral: diminished - Cardiovascular Rhythm: irregularly irregular - Gastrointestinal General gastrointestinal: normal bowel sounds, soft - Integumentary Integumentary: rash - Neurologic BLE Weakness R>L - Musculoskeletal Musculoskeletal: generalized weakness - Psychiatric Psychiatric: A&O x's 3, appropriate affect, intact judgment & insight Results CBC & Chem 7: 01/01/20 09:19 01/01/20 09:19 CT scan - abdomen: report reviewed CT scan - chest: report reviewed CT scan - pelvis: report reviewed Assessment and Plan (1) Renal mass Current Visit: Yes Status: Acute Code(s): N28.89 - OTHER SPECIFIED DISORDERS OF KIDNEY AND URETER SNOMED Code(s): 788405032 (2) Weakness Current Visit: Yes Status: Acute Code(s): R53.1 - WEAKNESS SNOMED Code(s): 40048670 (3) Metastatic lung cancer (metastasis from lung to other site) Current Visit: No Status: Acute Code(s): C34.90 - MALIGNANT NEOPLASM OF UNSP PART OF UNSP BRONCHUS OR LUNG SNOMED Code(s): 31690266 Plan: Assessment and Recommendations: Metastatic Adenocarcinoma of the Lung - Bone - Progression - Recent progression proven on bipsy of new supraclavicular LN - Restaging PET scheduled 02/03/20 - With evidence of new progression, MRI of brain is appropriate - LE Weakness - Patient states recent MRIs through neurology - Will ask to obtain this study to assess for need of updated imaging. New 4.3 renal Mass: - Unclear if this is malignant and if so new primary versus metastatic lesion - Renal mass biopsy is recommended Chronic neoplastic related pain: - COntinue on long acting and PRN supportive care, bowel regimen for narcotic induced constipation Physician Attest: I have completed the full history and physical and developed the above impression and plan, agree with dictation, dictated as a scribe,
--- NOTE | 2020-01-02 23:27 | P.PN ---
Progress Note - Text Progress Note Date: 01/02/20 Chief Complaint: Multiple symptoms History of presenting complaint: This is a very pleasant 69-year-old patient of Dr. Viviana Argueta. Chronic stable medical conditions include atrial fibrillation, hyperlipidemia, osteoarthritis, BPH, history of hepatitis C that was treated, obstructive sleep apnea uses CPAP machine, BPH, sciatica, bilateral hearing aids,. Patient was diagnosed with lung cancer morbid metastatic cyst and he received chemoradiation treatment. Oncologist is Dr. Quezada. Because of side effects chemotherapy was held. She is having progressive pain in the lower back. Seen by Dr. Valadez. Did have a MRI. Results of which are not available. Patient's at the bedside. Patient is his multitudinous symptoms. Having increasing pain in both the lower legs. Diagnosed with peripheral neuropathy for which she's Neurontin. 2 days ago started on Duragesic patch. Not really helping much. Also taking Percocet. Patient is feeling rather weak and tired and also been falling at home to able to still get to the bathroom. Appetite has been poor. Because of left vocal cord paralysis patient's current hoarseness. Also could've dysphagia and has had had a modified barium swallow been seen by physical and speech therapist. Patient also been having urine retention and a Farooq catheter was placed in the ER. More details obtained from oncology team reveals that patient was treated and recently had a resurgence of supraclavicular "that came back positive for adenocarcinoma. Subsequent's CAT scan is showing more masses in the abdomen. Patient's pending a restaging PET scan. Today-laying in bed. Seen by speech therapist. Has dysphagia. Breathing stable. Review of systems: Was done for constitutional, cardiovascular, GI, pulmonary. relevant finding as above Active Medications Hydrocodone Bitart/Acetaminophen (Isaban 10) 1 each PO Q6H PRN PRN Reason: Pain Last Admin: 01/02/20 15:00 Dose: 1 each Documented by: Alprazolam (Xanax) 0.5 mg PO BID@0600,2100 [facility] Last Admin: 01/02/20 20:23 Dose: 0.5 mg Documented by: Alprazolam (Xanax) 1 mg PO DAILY@1400 [facility] Last Admin: 01/02/20 13:49 Dose: 1 mg Documented by: Apixaban (Eliquis) 5 mg PO BID [facility] Last Admin: 01/02/20 20:23 Dose: 5 mg Documented by: Clonazepam (Klonopin) 1 mg PO HS [facility] Last Admin: 01/02/20 20:23 Dose: 1 mg Documented by: Fentanyl (Duragesic 12mcg/Hr Patch) 1 patch TRANSDERM Q48H [facility] Last Admin: 01/02/20 08:38 Dose: 1 patch Documented by: Finasteride (Proscar) 5 mg PO DAILY [facility] Last Admin: 01/02/20 08:39 Dose: 5 mg Documented by: Gabapentin (Neurontin) 600 mg PO BID@0600,1400 [facility] Last Admin: 01/02/20 13:49 Dose: 600 mg Documented by: Gabapentin (Neurontin) 800 mg PO [facility] Last Admin: 01/02/20 20:23 Dose: 800 mg Documented by: Dextrose/Sodium Chloride (Dextrose 5%-1/2ns Iv Soln) 1,000 mls @ 75 mls/hr IV .[id number] [facility] Last Admin: 01/02/20 15:00 Dose: 75 mls/hr Documented by: Loratadine (Claritin) 10 mg PO DAILY [facility] Last Admin: 01/02/20 08:39 Dose: 10 mg Documented by: Metoprolol Tartrate (Lopressor) 25 mg PO BID [facility] Last Admin: 01/02/20 20:23 Dose: 25 mg Documented by: Non-Formulary Medication (Atomoxetine Hcl [Strattera]) 25 mg PO DAILY [facility] Last Admin: 01/02/20 08:45 Dose: Not Given Documented by: Ondansetron HCl (Zofran) 4 mg IVP Q6HR PRN PRN Reason: Nausea And Vomiting Last Admin: 01/02/20 16:37 Dose: 4 mg Documented by: Pravastatin Sodium (Pravachol) 80 mg PO DAILY [facility] Last Admin: 01/02/20 08:40 Dose: 80 mg Documented by: Prochlorperazine Maleate (Compazine) 10 mg PO Q6H PRN PRN Reason: Nausea And Vomiting Last Admin: 01/02/20 12:22 Dose: 10 mg Documented by: Psyllium Hydrophilic Mucilloid (Metamucil) 6 gm PO DAILY [facility] Last Admin: 01/02/20 08:40 Dose: 6 gm Documented by: Tamsulosin HCl (Flomax) 0.4 mg PO DAILY@1400 [facility] Physical examination: VITAL SIGNS: 98.2, 65, 18, 110/70, 95% room air GENERAL: BMI 25, laying in bed, awake. EYES: Pupils equal. Conjunctiva normal. HEENT: External appearance of nose and ears normal, oral cavity grossly normal. NECK: JVD not raised; masses not palpable. HEART: First and second heart sounds are normal; no edema. LUNGS: Respiratory rate normal; clear to auscultation. ABDOMEN: Soft, nontender, liver spleen not palpable, no masses palpable. PSYCH: Alert and oriented x3; mood and affect slightly anxiousl. NEUROLOGICAL: Cranial nerves grossly intact; no facial asymmetry, power and sensation grossly intact. LYMPHATICS: No lymph nodes palpable in the axilla and neck INVESTIGATIONS, reviewed in the clinical context: White count 6.1 hemoglobin 13.3 platelets is 208 potassium 4.1 creatinine 0.9 UA negative EKG tracing personally reviewed by me-normal sinus rhythm Computed tomography scan of the abdomen and pelvis-4.3 cm mass of the left kidney and just sent periaortic lymphadenopathy, nonobstructive 3 mm right renal calculi Computed tomography scan of the neck and chest-December 17-supraclavicular lymph node +1.9 cm, subtle soft tissue thickening around the distal right clavicle, some carpal pulmonary nodules Assessment: -Lung cancer metastatic disease that was treated with radiation treatment and chemotherapy in the past -recent recurrence noted in the supraclavicular lymph node and now on computed tomography scan masses showing up. Patient scheduled for a PET scan. Down the road -Peripheral neuropathy secondary likely underlying malignancy -Medical asthenia due to underlying malignancy -Gait dysfunction patient is be continued falls -Vocal cord paralysis causing hoarseness -Dysphagia -Chronic urinary retention due to BPH now patient is a Farooq catheter Plan: Continue current medication treatment plan. Follows all the consultants.
[2020-01-03] MEDS: DEXTROSE 5%-0.45% NACL 1,000 ML IV SCH (03:57)
[2020-01-03] MEDS: HYDROcodone/APAP 10-325MG 1 EACH TAB PO PRN ×3 (04:44→16:47)
[2020-01-03] MEDS: GABAPENTIN 300 MG CAP PO SCH ×2 (05:58→15:05)
[2020-01-03] MEDS: ALPRAZolam 0.5 MG TAB PO SCH ×2 (05:59→20:29)
[2020-01-03] MEDS: FINASTERIDE 5 MG TAB PO SCH (08:45)
[2020-01-03] MEDS: PSYLLIUM HUSK 100% 6 GM PACKET PO SCH (08:45)
[2020-01-03] MEDS: PRAVASTATIN SODIUM 80 MG TAB PO SCH (08:45)
[2020-01-03] MEDS: LORATADINE 10 MG TAB PO SCH (08:46)
[2020-01-03] MEDS: APIXABAN 5 MG TAB PO SCH ×2 (08:46→20:29)
[2020-01-03] MEDS: METOPROLOL TARTRATE 25 MG TAB PO SCH ×2 (08:46→20:29)
--- NOTE | 2020-01-03 08:53 | P.CNOR ---
History of Present Illness - [facility] Consult date: 01/03/20 Requesting physician: Juan Alberto Lester Consult reason: low back pain, other (Bilateral lower extremity leg pain) History of present illness: Patient is a very pleasant 69-year-old male who is seen and examined at the bedside for further evaluation and consultation Dr. Lester for evaluation of low back pain and bilateral lower extremity leg pain. Patient has a significant medical history with known metastatic lung cancer. Patient does admit to previously undergoing chemotherapy and radiation. He is currently being seen and examined by oncology. Patient has also been experiencing increased dysphagia any recent CT of the chest and neck showed evidence of a new supraclavicular 1.9 cm lymph node which was biopsied and results are consistent with metastatic adenocarcinoma. During his admission he's also had a CT abdomen and pelvis performed which showed evidence of a new renal mass concerning for malignancy. Patient states he has been following with Dr. Gongora for treatment and evaluation in the outpatient setting for his low back pain and lower extremity leg pain. He recently had an MRI performed at the [facility] approximately one month ago. He states he underwent epidural injection with Dr. Gongora approximately 2 weeks ago. He states injection did provide improvement of his low back pain. He is not currently and sitting any low back pain. He do es continue to experience significant pain in bilateral lower extremities. He states he feels a pain and burning sensation in the bilateral posterior thighs, calves, and heels. His difficulty controlling the pain in his lower extremities. His leg pain has been ongoing since February 2019 but has continued to worsen. He feels generally weak in the lower extremities but denies specific weakness. He denies any recent injuries. Patient does admit to peripheral neuropathy. Patient known have the BPH has difficulty with urinary retention. He currently has a Farooq catheter and intact. Patient's past medical history includes atrial fibrillation, hyperlipidemia, prostate disorder, and metastatic lung cancer. Patient was able to work with physical therapy yesterday he was able to ambulate the hallways. Past Medical History Past Medical History: Atrial Fibrillation, Cancer, Hyperlipidemia, Osteoarthritis (OA), Pneumonia, Prostate Disorder, Sleep Apnea/CPAP/BIPAP Additional Past Medical History / Comment(s): rt lung mass with bone mets, had chemo and radiation,vertigo/sinus infections , hepatitis c-RECEIVED TX WITH INTERFERON,INCIVEK, sleep apnea USES A CPAP MACHINE, BPH, sciatica, SHINGLES >20 YEARS AGO,WEARS [place] HEARING AIDS,LOWER BRIDGE, issues with ambulating, cellulitis in the past in bilateral lower extremities,left sided vocal chord paralysis with difficulty speaking and swallowing and right clavicular enlarged lymph node History of Any Multi-Drug Resistant Organisms: None Reported Past Surgical History: Cholecystectomy, Orthopedic Surgery Additional Past Surgical History / Comment(s): sinus/SLEEP APNEA SX, RT KNEE ARTHROSCOPY AND MENISCAL TEAR REPAIR,LASIK EYE SX ,COLONOSCOPY, SKIN LESION REMOVED"PRECANCEROUS", lumbar epidural for bulging discs, Past Anesthesia/Blood Transfusion Reactions: Motion Sickness Additional Past Anesthesia/Blood Transfusion Reaction / Comm: no previous blood transfusion Past Psychological History: ADD/ADHD, Anxiety, Depression, PTSD Additional Psychological History / Comment(s): PT LIVES AT HOME WITH HIS SARA, IS INDEPENDANT. Smoking Status: Former smoker Past Alcohol Use History: None Reported Additional Past Alcohol Use History / Comment(s): Patient was a smoker one pack per day for 15 years and quit in 1982. He uses marijuana 2-3 times per week. He is and lives at home with his . There are 2 dogs in the home. Patient is retired from [employer] in [employer]. 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 Past Drug Use History: Marijuana Additional Drug Use History / Comment(s): MEDICAL MARIJUANA-occ use - Past Family History Father Family Medical History: Hyperlipidemia, Myocardial Infarction ([place]) Mother Additional Family Medical History / Comment(s): PT'S MOM FROM COMPLICATIONS FROM MS WHEN PT WAS 4 YEARS OLD. Medications and Allergies Home Medications Medication Instructions Recorded Confirmed Type Finasteride [Proscar] 5 mg PO DAILY 11/29/15 01/01/20 History Gabapentin 600 mg PO BID@0600,1400 11/29/15 01/01/20 History Tamsulosin HCl [Flomax] 0.4 mg PO DAILY 11/29/15 01/01/20 History clonazePAM [KlonoPIN] 1 mg PO HS 11/29/15 01/01/20 History Simethicone [Gas-X] 125 mg PO TID PRN 12/17/16 01/01/20 History Apixaban [Eliquis] 5 mg PO BID tab 12/19/16 01/01/20 Rx Atomoxetine HCl [Strattera] 25 mg PO DAILY 06/11/17 01/01/20 History Pravastatin Sodium [Pravachol] 80 mg PO DAILY 06/11/17 01/01/20 History ALPRAZolam [Xanax] 1 mg PO DAILY@1400 12/23/19 01/01/20 History Gabapentin 800 mg PO HS 12/23/19 01/01/20 History Metoprolol Tartrate [Lopressor] 25 mg PO BID 12/23/19 01/01/20 History Prochlorperazine [Compazine] 10 mg PO Q6H PRN 12/23/19 01/01/20 History ALPRAZolam [Xanax] 0.5 mg PO BID@0600,2100 01/01/20 01/01/20 History Cetirizine HCl 10 mg PO DAILY 01/01/20 01/01/20 History Polyethylene Glycol 3350 [Miralax] 17 gm PO DAILY PRN 01/01/20 01/01/20 History fentaNYL 12MCG/HR PATCH [Duragesic 1 patch TRANSDERM Q48H 01/01/20 01/01/20 History 12MCG/HR] Allergies Allergy/AdvReac Type Severity Reaction Status Date / Time telaprevir [From Incivek] Allergy Rash/Hives Verified 01/01/20 13:50 tetracycline Allergy Rash/Hives Verified 01/01/20 13:50 levofloxacin [From Levaquin] AdvReac Altered Verified 01/01/20 13:50 Mental Status Physical Examination Physical exam: Patient is awake, alert, and oriented 3 Vital signs stable Good chest excursion with deep inspiration and expiration Abdomen soft nontender Examination of lumbar spine reveals skin is intact with no abrasions, lacerations, or bruises; no erythema, purulence or signs of infection No pain with palpation along the lumbar spine Dorsiflexion, plantarflexion, and extensor hallucis longus positive sustained bilaterally Lower extremity strength 5/5 bilaterally No lower extremity hyperreflexia bilaterally Increased bilateral lower extremity leg pain with performing hip flexion and knee extension bilaterally No signs or symptoms of DVT; calves are soft bilaterally No pain with internal and external rotation of the hips bilaterally Neurovascularly intact Farooq catheter intact Results - Labs Labs: H & H 01/01/20 Range/Units 09:19 Hgb 13.3 (13.0-17.5) gm/dL Hct 39.3 (39.0-53.0) % Coagulation 01/01/20 Range/Units 09:19 INR 1.0 (<1.2) Result Diagrams: 01/01/20 09:19 01/01/20 09:19 Assessment and Plan Assessment: Assessment: Low back pain improved after epidural injection Bilateral lower extremity radiculopathy Bilateral lower extremity neuropathy History of metastatic lung cancer with history of chemotherapy and radiation Diagnosis of new renal mass during admission 1.9 cm supraclavicular lymph node biopsied and consistent for metastatic adenocarcinoma History of BPH currently with Farooq catheter intact History of atrial fibrillation Hyperlipidemia Dysphagia (1) Low back pain Current Visit: Yes Status: Acute Code(s): M54.5 - LOW BACK PAIN SNOMED Code(s): 409948906 (2) Lower extremity pain, bilateral Current Visit: Yes Status: Acute Code(s): M79.604 - PAIN IN RIGHT LEG; M79.605 - PAIN IN LEFT LEG SNOMED Code(s): 96920892 (3) History of atrial fibrillation Current Visit: Yes Status: Acute Code(s): Z86.79 - PERSONAL HISTORY OF OTHER DISEASES OF THE CIRCULATORY SYSTEM SNOMED Code(s): 873624070 (4) Hyperlipidemia Current Visit: Yes Status: Acute Code(s): E78.5 - HYPERLIPIDEMIA, UNSPECIFIED SNOMED Code(s): 82891244 (5) Dysphagia Current Visit: Yes Status: Acute Code(s): R13.10 - DYSPHAGIA, UNSPECIFIED SNOMED Code(s): 77629176 (6) Lower extremity neuropathy Current Visit: Yes Status: Acute Code(s): G57.90 - UNSPECIFIED MONONEUROPATHY OF UNSPECIFIED LOWER LIMB SNOMED Code(s): 254733820 (7) Renal mass Current Visit: Yes Status: Acute Code(s): N28.89 - OTHER SPECIFIED DISORDERS OF KIDNEY AND URETER SNOMED Code(s): 925521399 (8) Metastatic lung cancer (metastasis from lung to other site) Current Visit: No Status: Acute Code(s): C34.90 - MALIGNANT NEOPLASM OF UNSP PART OF UNSP BRONCHUS OR LUNG SNOMED Code(s): 89503268 Plan: Plan: 1Glen Phipps has been experiencing ongoing low back pain and bilateral lower extremity leg pain with his leg pain worsening since February 2019. He recently underwent an epidural injection with Dr. Gongora which did provide significant improvement of his low back pain. He continues to have significant difficulty with bilateral lower extremity leg pain. He feels generally weak in bilateral lower extremities. We are unsure of his bilateral lower extremity leg pain is currently due to compression of his lumbar spine, peripheral neuropathy, or side effect from previous chemotherapy treatment. He recently had an MRI of the lumbar spine performed at the [facility] approximately one month ago. We will plan to contact [facility] to obtain his MRI results and have these images loaded into synapse. We will plan to review this imaging once it is obtained and discuss his MRI results and treatment options with him in detail. 2. Patient will continue to be seen and examined by other medical providers including oncology and medicine 3. Continue pain control medications as prescribed 4. Patient to continue working with physical therapy to increase mobility and ambulation Time with Patient: Greater than 30 (Including obtaining history, physical examination, reviewing of imaging, and dictation.)
[2020-01-03] MEDS: ONDANSETRON 4 MG/2 ML VIAL IVP PRN (08:55)
[2020-01-03] MEDS: ATOMOXETINE HCL 25 MG PO SCH (08:59)
--- NOTE | 2020-01-03 09:57 | P.GSCN ---
History of Present Illness Consult date: 01/02/20 Reason for Consult: renal mass History of present illness: Mr Rubio is a 69-year-old patient with hx of lung cancer treated with chemoradiation treatment. He presnted to the ED with back pain. he had recent evidence of adenapathy on chest CT, he underwent biopsy of 1.9 cm clavicle lymph node, current pathology is pending. In the ED he had CT abdomen which showed a 4.3 cm left renal mass with reteroperitoneal lymph adenapathy. in the ED he also had evidence of urrinary retention and ordoñez was placed. Denies any flank pain or any gross hematuria. He follows up with Dr Medrano for managment of BPH Review of Systems - Constitutional Reports weight loss, Denies chills, Denies fever - EENT Ears, nose, mouth and throat: Reports dysphagia, Reports hoarseness - Cardiovascular Denies dyspnea on exertion, Denies shortness of breath - Respiratory Denies cough - Gastrointestinal Denies abdominal pain, Denies nausea, Denies vomiting - Genitourinary Reports urinary retention, Denies dysuria - Musculoskeletal Reports low back pain Past Medical History Past Medical History: Atrial Fibrillation, Cancer, Hyperlipidemia, Osteoarthritis (OA), Pneumonia, Prostate Disorder, Sleep Apnea/CPAP/BIPAP Additional Past Medical History / Comment(s): rt lung mass with bone mets, had chemo and radiation,vertigo/sinus infections , hepatitis c-RECEIVED TX WITH INTERFERON,INCIVEK, sleep apnea USES A CPAP MACHINE, BPH, sciatica, SHINGLES >20 YEARS AGO,WEARS [place] HEARING AIDS,LOWER BRIDGE, issues with ambulating, cellulitis in the past in bilateral lower extremities,left sided vocal chord paralysis with difficulty speaking and swallowing and right clavicular enlarged lymph node History of Any Multi-Drug Resistant Organisms: None Reported Past Surgical History: Cholecystectomy, Orthopedic Surgery Additional Past Surgical History / Comment(s): sinus/SLEEP APNEA SX, RT KNEE ARTHROSCOPY AND MENISCAL TEAR REPAIR,LASIK EYE SX ,COLONOSCOPY, SKIN LESION REMOVED"PRECANCEROUS", lumbar epidural for bulging discs, Past Anesthesia/Blood Transfusion Reactions: Motion Sickness Additional Past Anesthesia/Blood Transfusion Reaction / Comm: no previous blood transfusion Past Psychological History: ADD/ADHD, Anxiety, Depression, PTSD Additional Psychological History / Comment(s): PT LIVES AT HOME WITH HIS SARA, IS INDEPENDANT. Smoking Status: Former smoker Past Alcohol Use History: None Reported Additional Past Alcohol Use History / Comment(s): Patient was a smoker one pack per day for 15 years and quit in 1982. He uses marijuana 2-3 times per week. He is and lives at home with his . There are 2 dogs in the home. Patient is retired from [employer] in [place]. 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 Past Drug Use History: Marijuana Additional Drug Use History / Comment(s): MEDICAL MARIJUANA-occ use - Past Family History Father Family Medical History: Hyperlipidemia, Myocardial Infarction ([place]) Mother Additional Family Medical History / Comment(s): PT'S MOM FROM COMPLICATIONS FROM MS WHEN PT WAS 4 YEARS OLD. Medications and Allergies Home Medications Medication Instructions Recorded Confirmed Type Finasteride [Proscar] 5 mg PO DAILY 11/29/15 01/01/20 History Gabapentin 600 mg PO BID@0600,1400 11/29/15 01/01/20 History Tamsulosin HCl [Flomax] 0.4 mg PO DAILY 11/29/15 01/01/20 History clonazePAM [KlonoPIN] 1 mg PO HS 11/29/15 01/01/20 History Simethicone [Gas-X] 125 mg PO TID PRN 12/17/16 01/01/20 History Apixaban [Eliquis] 5 mg PO BID tab 12/19/16 01/01/20 Rx Atomoxetine HCl [Strattera] 25 mg PO DAILY 06/11/17 01/01/20 History Pravastatin Sodium [Pravachol] 80 mg PO DAILY 06/11/17 01/01/20 History ALPRAZolam [Xanax] 1 mg PO DAILY@1400 12/23/19 01/01/20 History Gabapentin 800 mg PO HS 12/23/19 01/01/20 History Metoprolol Tartrate [Lopressor] 25 mg PO BID 12/23/19 01/01/20 History Prochlorperazine [Compazine] 10 mg PO Q6H PRN 12/23/19 01/01/20 History ALPRAZolam [Xanax] 0.5 mg PO BID@0600,2100 01/01/20 01/01/20 History Cetirizine HCl 10 mg PO DAILY 01/01/20 01/01/20 History Polyethylene Glycol 3350 [Miralax] 17 gm PO DAILY PRN 01/01/20 01/01/20 History fentaNYL 12MCG/HR PATCH [Duragesic 1 patch TRANSDERM Q48H 01/01/20 01/01/20 History 12MCG/HR] Allergies Allergy/AdvReac Type Severity Reaction Status Date / Time telaprevir [From Incivek] Allergy Rash/Hives Verified 01/01/20 13:50 tetracycline Allergy Rash/Hives Verified 01/01/20 13:50 levofloxacin [From Levaquin] AdvReac Altered Verified 01/01/20 13:50 Mental Status Surgical - Exam Vital Signs Temp Pulse Resp BP Pulse Ox 98.0 F 110 H 18 145/84 96 01/01/20 08:42 01/01/20 08:42 01/01/20 08:42 01/01/20 08:42 01/01/20 08:42 - General no distress, no pain - Eyes PERRL, normal ocular movement - Respiratory normal expansion, normal respiratory effort - Psychiatric oriented to time, oriented to person, oriented to place Results - Labs 01/01/20 09:19 01/01/20 09:19 Abnormal Lab Results - Last 24 Hours (Table) 01/01/20 01/01/20 01/01/20 Range/Units 09:19 09:19 09:19 Lymphocytes # 0.7 L (1.0-4.8) k/uL APTT 53.6 H (22.0-30.0) sec Glucose 132 H (74-99) mg/dL Diabetes panel 01/01/20 Range/Units 09:19 Sodium 138 (137-145) mmol/L Potassium 4.1 (3.5-5.1) mmol/L Chloride 101 (98-107) mmol/L Carbon Dioxide 25 (22-30) mmol/L BUN 15 (9-20) mg/dL Creatinine 0.90 (0.66-1.25) mg/dL Glucose 132 H (74-99) mg/dL Calcium 9.5 (8.4-10.2) mg/dL AST 22 (17-59) U/L ALT 17 (4-49) U/L Alkaline Phosphatase 64 (38-126) U/L Total Protein 7.3 (6.3-8.2) g/dL Albumin 4.4 (3.5-5.0) g/dL Calcium panel 01/01/20 Range/Units 09:19 Calcium 9.5 (8.4-10.2) mg/dL Albumin 4.4 (3.5-5.0) g/dL Pituitary panel 01/01/20 Range/Units 09:19 Sodium 138 (137-145) mmol/L Potassium 4.1 (3.5-5.1) mmol/L Chloride 101 (98-107) mmol/L Carbon Dioxide 25 (22-30) mmol/L BUN 15 (9-20) mg/dL Creatinine 0.90 (0.66-1.25) mg/dL Glucose 132 H (74-99) mg/dL Calcium 9.5 (8.4-10.2) mg/dL Adrenal panel 01/01/20 Range/Units 09:19 Sodium 138 (137-145) mmol/L Potassium 4.1 (3.5-5.1) mmol/L Chloride 101 (98-107) mmol/L Carbon Dioxide 25 (22-30) mmol/L BUN 15 (9-20) mg/dL Creatinine 0.90 (0.66-1.25) mg/dL Glucose 132 H (74-99) mg/dL Calcium 9.5 (8.4-10.2) mg/dL Total Bilirubin 0.9 (0.2-1.3) mg/dL AST 22 (17-59) U/L ALT 17 (4-49) U/L Alkaline Phosphatase 64 (38-126) U/L Total Protein 7.3 (6.3-8.2) g/dL Albumin 4.4 (3.5-5.0) g/dL Assessment and Plan Assessment: Mr Ramiro Rubio is a 69-year-old patient with hx of lung cancer treated with chemoradiation treatment. In the ED he had CT abdomen which showed a 4.3 cm left renal mass with reteroperitoneal lymph adenapath . he had recent evidence of adenapathy on chest CT, he underwent biopsy of 1.9 cm clavicle lymph node, current pathology is pending. Plan: -I reviewed the CT finding are concerning for metastatic disease, at this time will await the pathology for the suprcalvicular lymph node biopsy. He can be discharged from urology standpoint and further workup can be arranged as an outpatient -F/u [address] Medrano
[2020-01-03] MEDS ORDERED: NAPROXEN 250 MG TAB PO STA (11:03)
[2020-01-03] MEDS: CYCLOBENZAPRINE 5 MG TAB PO SCH ×3 (11:19→20:29)
[2020-01-03] MEDS ORDERED: TAMSULOSIN 0.4 MG CAP.ER.24H PO SCH (14:00)
[2020-01-03] MEDS: ALPRAZolam 1 MG TAB PO SCH (15:06)
[2020-01-03] MEDS: NAPROXEN 250 MG TAB PO SCH ×2 (16:45→20:57)
--- NOTE | 2020-01-03 19:43 | P.PN ---
Subjective Progress Note Date: 01/03/20 Principal diagnosis: weakness, pain In f/u pt has persistent back and leg pain, occasional pains in the abd, states pt has some confusion at times. Pt is eating his dinner, he does have occasional dysphagia. Pt and are wanting biopsy results Objective - Vital Signs Vital signs: Vital Signs Temp 98.7 F 01/03/20 12:10 Pulse 64 01/03/20 12:10 Resp 16 01/03/20 12:10 BP 116/67 01/03/20 12:10 Pulse Ox 94 L 01/03/20 12:10 Intake & Output 01/03/20 01/03/20 01/04/20 06:59 18:59 06:59 Intake Total 1020 Output Total 1000 1400 Balance 20 -1400 Intake: Intake, IV Titration 300 Amount Dextrose 5%-0.45% NaCl 1, 300 000 ml @ 75 mls/hr IV . [id number] MARTINEZ Rx#:[id number] Oral 720 Output: Urine 1000 1400 Other: Voiding Method Indwelling Catheter Indwelling Catheter # Voids 2 - Constitutional General appearance: Present: average body habitus, cooperative, no acute distress - EENT Eyes: Present: anicteric sclerae, EOMI ENT: Present: hearing grossly normal - Respiratory Details: resp even and unlabored - Peripheral edema leg Peripheral Edema: bilateral: None - Gastrointestinal General gastrointestinal: Present: soft - Musculoskeletal Musculoskeletal: Present: strength equal bilaterally - Psychiatric Psychiatric: Present: A&O x's 3, appropriate affect - Labs CBC & Chem 7: 01/01/20 09:19 01/01/20 09:19 - Imaging and Cardiology CT scan - abdomen: report reviewed CT scan - pelvis: report reviewed Assessment and Plan (1) Metastatic lung cancer (metastasis from lung to other site) Narrative/Plan: reviewed with pt and that recent supraclavicular LN biopsy was unfortunately positive for metastatic disease from lung. They will f/u with Dr. Quezada for treatment options and plan of care. Going to move up PET to restage pt. Have requested PD-L1 as previous biopsy did not have enough specimen to perform, NGS ordered for any possible new mutations. MRI brain for confusion and severe neuropathy type pain. Current Visit: Yes Status: Chronic Priority: High Code(s): C34.90 - MALIGNANT NEOPLASM OF UNSP PART OF UNSP BRONCHUS OR LUNG SNOMED Code(s): 79358902 (2) Renal mass Narrative/Plan: :ET scan going to be moved up to evaluate Current Visit: Yes Status: Acute Priority: High Code(s): N28.89 - OTHER SPECIFIED DISORDERS OF KIDNEY AND URETER SNOMED Code(s): 642762310 (3) Weight loss Narrative/Plan: Secondary to malignancy. Close monitoring Current Visit: Yes Status: Acute Priority: High Code(s): R63.4 - ABNORMAL WEIGHT LOSS SNOMED Code(s): 14263385 Plan: Pain: unsure if r/t bulging discs or malignancy. Pending review of spine MRI. Pt pain is fairly controlled on current regimen. Increased fentanyl to 25mcg, norco Q 4 hours PRN, flexeril was added today 5mg TID. Will cont this regimen, reviewed with . Reviewed prevention of narcotic induced constipation. Time with Patient: Greater than 30
[2020-01-03] MEDS: clonazePAM 1 MG TAB PO SCH (20:29)
[2020-01-03] MEDS: GABAPENTIN 400 MG CAP PO SCH (20:29)
[2020-01-03 21:12] VITALS: BP 125/58; PULSE 72; RESP 12; TEMP 99.5
--- NOTE | 2020-01-03 23:02 | P.DS ---
Providers Date of admission: 01/01/20 11:16 Expected date of discharge: 01/03/20 Attending physician: Juan Alberto Lester Consults: 01/01/20 11:00 Consult Physician Urgent Consulting Provider: Jamari Quezada Consult Reason/Comments: History of lung cancer, renal mass Do you want consulting provider notified?: Yes Consult Physician Urgent Consulting Provider: Christian Merino Consult Reason/Comments: Renal mass Do you want consulting provider notified?: Yes 01/02/20 18:24 Consult Physician Routine Consulting Provider: Nesha Delgado Consult Reason/Comments: Back and leg pain Do you want consulting provider notified?: Yes, Notify in am Primary care physician: Viviana Argueta [facility] Course: Chief Complaint: Multiple symptoms History of presenting complaint: This is a very pleasant 69-year-old patient of Dr. Viviana Argueta. Chronic stable medical conditions include atrial fibrillation, hyperlipidemia, osteoarthritis, BPH, history of hepatitis C that was treated, obstructive sleep apnea uses CPAP machine, BPH, sciatica, bilateral hearing aids,. Patient was diagnosed with lung cancer morbid metastatic cyst and he received chemoradiation treatment. Oncologist is Dr. Quezada. Because of side effects chemotherapy was held. She is having progressive pain in the lower back. Seen by Dr. Valadez. Did have a MRI. Results of which are not available. Patient's at the bedside. Patient is his multitudinous symptoms. Having increasing pain in both the lower legs. Diagnosed with peripheral neuropathy for which she's Neurontin. 2 days ago started on Duragesic patch. Not really helping much. Also taking Percocet. Patient is feeling rather weak and tired and also been falling at home to able to still get to the bathroom. Appetite has been poor. Because of left vocal cord paralysis patient's current hoarseness. Also could've dysphagia and has had had a modified barium swallow been seen by physical and speech therapist. Patient also been having urine retention and a Farooq catheter was placed in the ER. More details obtained from oncology team reveals that patient was treated and recently had a resurgence of supraclavicular "that came back positive for adenocarcinoma. Subsequent's CAT scan is showing more masses in the abdomen. Patient's pending a restaging PET scan. Today-patient's eating better. Today naproxen and antispasmodic was added. Pain much better control. Also PPI added.. Patient getting an MRI of the brain with contrast before going home today. Care was discussed at length with the patient. Also spoke with the welfare case worker. Patient be going home with home therapy and a walker. For weakness. Discussion and discharge planning more than 35 minutes Consultation: Dr. Delgado from orthopedics Dr. merino from urology Dr. Leon from oncology Physical examination: VITAL SIGNS: 99.5, 72, 12, 1 25 x 58, 94% room air GENERAL: Laying in bed, more comfortable. EYES: Pupils equal. Conjunctiva normal. HEENT: External appearance of nose and ears normal, oral cavity grossly normal. NECK: JVD not raised; masses not palpable. HEART: First and second heart sounds are normal; no edema. LUNGS: Respiratory rate normal; clear to auscultation. ABDOMEN: Soft, nontender, liver spleen not palpable, no masses palpable. PSYCH: Alert and oriented x3; mood and affect slightly anxiousl. INVESTIGATIONS, reviewed in the clinical context: White count 6.1 hemoglobin 13.3 platelets is 208 potassium 4.1 creatinine 0.9 UA negative EKG tracing personally reviewed by me-normal sinus rhythm Computed tomography scan of the abdomen and pelvis-4.3 cm mass of the left kidney and just sent periaortic lymphadenopathy, nonobstructive 3 mm right renal calculi Computed tomography scan of the neck and chest-December 17-supraclavicular lymph node +1.9 cm, subtle soft tissue thickening around the distal right clavicle, some carpal pulmonary nodules Assessment: -Lung cancer metastatic disease that was treated with radiation treatment and chemotherapy in the past -recent recurrence noted in the supraclavicular lymph node and now on computed tomography scan masses showing up. Patient scheduled for a PET scan.-Outpatient -Peripheral neuropathy secondary likely underlying malignancy -Medical asthenia due to underlying malignancy -Gait dysfunction patient is be continued falls -Vocal cord paralysis causing hoarseness -Dysphagia -Chronic urinary retention due to BPH now patient is a Farooq catheter Disposition: Home Patient Condition at Discharge: Undetermined Plan - Discharge Summary Discharge Rx Participant: No New Discharge Prescriptions: New Cyclobenzaprine [Flexeril] 5 mg PO TID #15 tablet HYDROcodone/APAP 10-325MG [[place] 10-325] 1 tab PO Q4HR PRN 3 Days #18 tab PRN Reason: Pain Ondansetron [Zofran ODT] 4 mg PO Q4HR PRN #18 tab PRN Reason: Nausea Psyllium Husk 100% [Metamucil Packet] 6 gm PO DAILY #30 packet Naproxen [Naprosyn] 250 mg PO TID #60 tab Omeprazole [PriLOSEC] 20 mg PO AC-BID #60 cap Continue clonazePAM [KlonoPIN] 1 mg PO HS Gabapentin 600 mg PO BID@0600,1400 Finasteride [Proscar] 5 mg PO DAILY Tamsulosin HCl [Flomax] 0.4 mg PO DAILY Simethicone [Gas-X] 125 mg PO TID PRN PRN Reason: Bloating/Gas Apixaban [Eliquis] 5 mg PO BID tab Pravastatin Sodium [Pravachol] 80 mg PO DAILY Atomoxetine HCl [Strattera] 25 mg PO DAILY Prochlorperazine [Compazine] 10 mg PO Q6H PRN PRN Reason: Nausea And Vomiting ALPRAZolam [Xanax] 1 mg PO DAILY@1400 Gabapentin 800 mg PO HS Metoprolol Tartrate [Lopressor] 25 mg PO BID fentaNYL 12MCG/HR PATCH [Duragesic 12MCG/HR] 1 patch TRANSDERM Q48H Cetirizine HCl 10 mg PO DAILY ALPRAZolam [Xanax] 0.5 mg PO BID@0600,2100 Discontinued Polyethylene Glycol 3350 [Miralax] 17 gm PO DAILY PRN PRN Reason: Constipation Discharge Medication List Finasteride [Proscar] 5 mg PO DAILY 11/29/15 [History] Gabapentin 600 mg PO BID@0600,1400 11/29/15 [History] Tamsulosin HCl [Flomax] 0.4 mg PO DAILY 11/29/15 [History] clonazePAM [KlonoPIN] 1 mg PO HS 11/29/15 [History] Simethicone [Gas-X] 125 mg PO TID PRN 12/17/16 [History] Apixaban [Eliquis] 5 mg PO BID tab 12/19/16 [Rx] Atomoxetine HCl [Strattera] 25 mg PO DAILY 06/11/17 [History] Pravastatin Sodium [Pravachol] 80 mg PO DAILY 06/11/17 [History] ALPRAZolam [Xanax] 1 mg PO DAILY@1400 12/23/19 [History] Gabapentin 800 mg PO HS 12/23/19 [History] Metoprolol Tartrate [Lopressor] 25 mg PO BID 12/23/19 [History] Prochlorperazine [Compazine] 10 mg PO Q6H PRN 12/23/19 [History] ALPRAZolam [Xanax] 0.5 mg PO BID@0600,2100 01/01/20 [History] Cetirizine HCl 10 mg PO DAILY 01/01/20 [History] fentaNYL 12MCG/HR PATCH [Duragesic 12MCG/HR] 1 patch TRANSDERM Q48H 01/01/20 [History] Cyclobenzaprine [Flexeril] 5 mg PO TID #15 tablet 01/03/20 [Rx] HYDROcodone/APAP 10-325MG [[place] 10-325] 1 tab PO Q4HR PRN 3 Days #18 tab 01/03/20 [Rx] Naproxen [Naprosyn] 250 mg PO TID #60 tab 01/03/20 [Rx] Omeprazole [PriLOSEC] 20 mg PO AC-BID #60 cap 01/03/20 [Rx] Ondansetron [Zofran ODT] 4 mg PO Q4HR PRN #18 tab 01/03/20 [Rx] Psyllium Husk 100% [Metamucil Packet] 6 gm PO DAILY #30 packet 01/03/20 [Rx] Follow up Appointment(s)/Referral(s): Viviana Argueta DO [Primary Care Provider] - 1-2 days Jamari Quezada MD [STAFF PHYSICIAN] - 2 Weeks (After PET scan) Patient Instructions/Handouts: Weakness (DC) Activity/Diet/Wound Care/Special Instructions: Discharge home with walker and home health for medical debility and gait dysfunction. Pt instructed to increase fentanyl to 25mcg (2 12.5mcg patches-pt has enough at home for at least 10 day. See how pt doing at 48 hours, if pain controlled change at 72 hours, if not, ok to change at 48 hours. Reviewed strategies for prevention of narcotic induced constipation. Discharge Disposition: HOME SELF-CARE
== END 2020-01-03 21:41 | disposition home or self-care (01) ==
LOC: EC 08:39 → 5NMEDONC 11:16
PROVIDERS: ADMIT Hospitalist; ATTEND Hospitalist
DX: C34.90 Malignant neoplasm of unspecified part of unspecified bronchus or lung (principal); C77.0 Secondary and unspecified malignant neoplasm of lymph nodes of head, face and neck; E78.5 Hyperlipidemia, unspecified; F12.90 Cannabis use, unspecified, uncomplicated; F32.9 Major depressive disorder, single episode, unspecified; F43.10 Post-traumatic stress disorder, unspecified; F90.9 Attention-deficit hyperactivity disorder, unspecified type; R13.10 Dysphagia, unspecified; N40.1 Benign prostatic hyperplasia with lower urinary tract symptoms; R33.8 Other retention of urine; G89.29 Other chronic pain; I49.3 Ventricular premature depolarization; J38.01 Paralysis of vocal cords and larynx, unilateral; M54.10 Radiculopathy, site unspecified; N28.89 Other specified disorders of kidney and ureter; Z11.59 Encounter for screening for other viral diseases; R29.6 Repeated falls; Z79.01 Long term (current) use of anticoagulants; Z79.899 Other long term (current) drug therapy; Z82.49 Family history of ischemic heart disease and other diseases of the circulatory system; Z87.891 Personal history of nicotine dependence; Z85.118 Personal history of other malignant neoplasm of bronchus and lung; Z92.21 Personal history of antineoplastic chemotherapy; Z92.3 Personal history of irradiation
CPT/HCPCS: 96376 ×3; 96361 ×2; 96365; 96366 ×2; 96375; 99285; 51702; 36415; 93005; 97530; 97162; 92610; 80053; 83605; 83735; 84484; 85025; 85610; 85730; 81003; 74177; G0378 ×3; U0003; S0183; S0138 ×2; J2405 ×3; J1170; Q9967